=== PATIENT | female | born 1970 | race Caucasian/White ===

== ENCOUNTER → 2018-05-22 16:37 | Outpatient (CLI) | payer OTHER, SELFPAY ==
[2018-05-22 17:23] LABS: Hematocrit 43.5 % (37-47); Hemoglobin 14.9 g/dl (12.0-15.0); Mean Corp Hgb Conc 34.3 g/gl (32-36); Mean Corpuscular Volume 90.4 fL (81-99); Mean Platelet Vol. 9.5 fl (6.2-12.0); Platelet Count 321 K/mm3 (150-450); RBC Distribution Width CV 12.9 % (11.6-14.6); Red Blood Count 4.81 M/mm3 (4.2-5.4); White Blood Count 12.2 K/mm3 (4.4-11.0)
[2018-05-22 17:24] LABS: Scan Indicated on CBC? Y/N NO
[2018-05-22 18:05] LABS: Vitamin B12 469 pg/mL (211-911); Vitamin D,25 Hydroxy 12.7 ng/mL (29.95-100.01)
[2018-05-22 18:09] LABS: Hemoglobin A1c 5.6 % (4.2-6.3)
[2018-05-22 18:17] LABS: Homocysteine 9.2 umol/L (3.2-10.7)
[2018-05-22 19:27] LABS: ALB/GLOB Ratio 0.9 RATIO (0.9-2.4); AST(SGOT) 24 U/L (15-37); Alanine Aminotransfer ALT/SGPT 27 U/L (13-56); Albumin, Serum 3.8 g/dL (3.2-5.0); Alkaline Phosphatase 126 U/L (45-117); Anion Gap 8 (5-15); BUN 15 mg/dL (7-18); BUN/Creat Ratio 13.3 RATIO (10-20); CRP < 2.90 mg/L (0.0-3.0); Calcium,Total 10.8 mg/dL (8.5-10.1); Chloride 106 mmol/L (98-107); Cholesterol 214 mg/dL (200); Creatinine, Serum 1.13 mg/dL (0.55-1.02); EST Glomerular Filtration Rate 55 mL/min (>60); Est Glom Filt Rate - Afr Amer 67 mL/min (>60); Estradiol 187.5 pg/mL; Follicle Stimulating Hormone 22.9 mIU/mL; Free T3 2.9 pg/mL (2.18-3.98); Globulin 4.1 g/dL (2.2-4.2); Glucose 90 mg/dL (74-106); High Density Lipoprotein 40 mg/dL; Iron 86 ug/dL (50-170); Luteinizing Hormone 37.8 mIU/mL; Magnesium 1.8 mg/dL (1.6-2.6); Potassium 3.9 mmol/L (3.5-5.1); Prolactin 18.2 ng/mL; Protein, Total 7.9 g/dL (6.4-8.2); Sodium Level 140 mmol/L (136-145); T4 Total, Thyroxin 10.8 ug/dL (4.8-13.9); Thyroid Stim Hormone (TSH) 1.26 uIU/mL (0.358-3.74); Triglycerides 334 mg/dL; Very Low Density Lipoprotein 67 mg/dL (5-40)
[2018-05-23 10:32] LABS: Progesterone Level 1.07 ng/mL (See Comment)
[2018-05-23 10:36] LABS: T4 Free Direct 1.01 ng/dL (0.76-1.46)
[2018-05-28 12:07] LABS: DHEA Sulfate 200.9 ug/dL (41.2-243.7); Testosterone, % Free 0.88 % (0.50-2.80); Testosterone, Free 0.35 ng/dL (0.10-0.85); Testosterone, Total 40 ng/dL (8-48)
[2018-05-28 14:22] LABS: Sex Hormone-binding Globulin 51.2 nmol/L (24.6-122.0)
--- OUTSIDE RECORDS SUMMARY | 2018-07-17 22:52 | XMS RPT_ITS ---
:1970 Author Organization [facility] Care Team Providers Name Role Phone DAMON HINOJOSA Attending Unavailable DAMON HINOJOSA Referring Unavailable DAMON HINOJOSA Primary Care Unavailable PROBLEMS PROBLEMS DATE TYPE CONDITION / CODE ATTENDING STATUS SOURCE 06/03/2018 Unknown M62.81 - Muscle DAMON HINOJOSA Active [place] weakness [facility] (generalized) / Hospital M62.81(ICD-10) Repository 06/03/2018 Unknown R53.82 - Chronic DAMON HINOJOSA Active [place] fatigue, Community unspecified / Hospital R53.82(ICD-10) Repository PROCEDURES PROCEDURES No Procedure Records FoundRESULTS RESULTS CBC-COMPLETE BLOOD CNT Collected: 05/22/2018 Status: F Source: [place] NO DIFF 4:46 PM [facility] REPOSITORY Order Comment: COMPUTER WONT LET ME ORDER PSA TYPE CODE TESTS RESULT OUT OF RANGE REFERENCE UNITS LAB L100.1000 4.4-11.0 K/mm3 High WBC 12.2 LAB L100.1200 4.2-5.4 M/mm3 Normal RBC 4.81 LAB L100.1300 12.0-15.0 g/dl Normal HGB 14.9 LAB L100.1400 37-47 % Normal HCT 43.5 LAB L100.1500 81-99 fL Normal MCV 90.4 LAB L100.1600 27.0-32.0 pg Normal MCH 31.0 LAB L100.1700 32-36 g/gl Normal MCHC 34.3 LAB L100.1810 11.6-14.6 % Normal RDW CV 12.9 LAB L100.1820 35.1-43.9 fl Normal RDW SD 42.0 LAB L100.1900 150-450 K/mm3 Normal PLT 321 LAB L100.2000 6.2-12.0 fl Normal MPV 9.5 Performed By: #### L100.0500 #### [facility] [address] [place], [address] VITAMIN B12 Collected: 05/22/2018 Status: F Source: [place] 4:46 PM [facility] REPOSITORY Order Comment: COMPUTER WONT LET ME ORDER PSA Comments: [id number] PREGNENOLONE SER FZ TYPE CODE TESTS RESULT OUT OF RANGE REFERENCE UNITS LAB L503.0105 211-911 pg/mL Normal Vitamin B12 469 Performed By: #### L503.0105, L506.1000, L509.6000, L509.4001 #### [facility] [address] [place], [address] VITAMIN D,25 HYDROXY Collected: 05/22/2018 Status: F Source: [place] 4:46 PM [facility] REPOSITORY Order Comment: COMPUTER WONT LET ME ORDER PSA Comments: [id number] PREGNENOLONE SER FZ TYPE CODE TESTS RESULT OUT OF REFERENCE UNITS RANGE LAB L506.1000 29.95-100.01 ng/mL Low Vitamin D 12.7 25-OH Result Comment: Vitamin D 25(OH) Status Range Deficiency <20 ng/mL (50nmol/L) Insuffciency 20 - 30 ng/mL (50 - 75 nmol/L) Sufficiency 30 - 100 ng/mL (75 - 250 nmol/L) Toxicity >100 ng/mL (>250 nmol/L) Performed By: #### L503.0105, L506.1000, L509.6000, L509.4001 #### [facility] [address] [place], [address] CORTISOL SERUM Collected: 05/22/2018 Status: F Source: [place] 4:46 PM [facility] REPOSITORY Order Comment: COMPUTER WONT LET ME ORDER PSA Comments: [id number] PREGNENOLONE SER FZ TYPE CODE TESTS RESULT OUT OF RANGE REFERENCE UNITS LAB L509.6000 3.09-22.40 ug/dL Normal CORTISOL 9.70 Result Comment: Adult (AM) 4.30 - 22.40 ug/dL Adult (PM) 3.09 - 16.66 ug/dL Performed By: #### L503.0105, L506.1000, L509.6000, L509.4001 #### [facility] [address] [place], [address] PROGESTERONE LEVEL Collected: 05/22/2018 Status: F Source: [place] 4:46 PM [facility] REPOSITORY Order Comment: COMPUTER WONT LET ME ORDER PSA Comments: [id number] PREGNENOLONE SER FZ TYPE CODE TESTS RESULT OUT OF REFERENCE UNITS RANGE LAB L509.4001 See Comment ng/mL Progesterone Normal 1.07 Result Comment: Progesterone Reference Table: UNITS Female: Follicular 0.15 - 1.40 ng/mL Luteal 3.34 - 25.56 ng/mL Mid-luteal 4.44 - 28.03 ng/mL Postmenopausal 0.0 - 0.73 ng/mL : 1st Trimester 11.22 - 90.00 ng/mL 2nd Trimester 25.55 - 89.40 ng/mL 3rd Trimester 48.40 -422.50 ng/mL Performed By: #### L503.0105, L506.1000, L509.6000, L509.4001 #### [facility] [address] [facility] [facility] [address] HEMOGLOBIN A1C Collected: 05/22/2018 Status: F Source: [place] 4:46 PM [facility] REPOSITORY Order Comment: COMPUTER Internet PawnT LET ME ORDER PSA TYPE CODE TESTS RESULT OUT OF RANGE REFERENCE UNITS LAB L501.9985 4.2-6.3 % Normal HGB A1C 5.6 Performed By: #### L501.9985 #### [facility] [address] [place], [address] HOMOCYSTEINE Collected: 05/22/2018 Status: F Source: [place] 4:46 PM [facility] REPOSITORY Order Comment: COMPUTER Internet PawnT LET ME ORDER PSA TYPE CODE TESTS RESULT OUT OF REFERENCE UNITS RANGE LAB L503.8001 3.2-10.7 umol/L HOMOCYSTEINE Normal 9.2 Performed By: #### L503.8001 #### [facility] [address] [place], [place], [address] COMPREHENSIVE METABOLIC Collected: 05/22/2018 Status: F Source: [place] GALLEGOS 4:46 PM [facility] REPOSITORY Order Comment: COMPUTER WONT LET ME ORDER PSA Has Patient had X-rays with Contrast this admission? N Comments: [id number] PREGNENOLONE SER FZ Is Patient Taking Vitamins or Folic Acid Supplements? N TYPE CODE TESTS RESULT OUT OF RANGE REFERENCE UNITS LAB L501.0100 74-106 mg/dL Normal GLU 90 Result Comment: Please note revised GLUCOSE reference range effective 2017. LAB L501.1000 7-18 mg/dL Normal BUN 15 LAB L501.1100 0.55-1.02 mg/dL High CREAT,SERUM 1.13 Result Comment: The validity of the calculated GFR AND GFRAA in patients over 70 years has not been determined. Clinical correlation is essential. LAB L501.1110 >60 mL/min Low EST GFR 55 Result Comment: Non- GFR Calc LAB L501.1115 >60 mL/min Normal EST GFR - AA 67 Result Comment: GFR Calc LAB L501.1300 10-20 RATIO Normal BUN/CRE 13.3 LAB L501.1500 6.4-8.2 g/dL T Normal PROT 7.9 LAB L501.1800 3.2-5.0 g/dL Normal ALB 3.8 LAB L501.1950 2.2-4.2 g/dL Normal GLOB 4.1 LAB L501.2000 0.9-2.4 RATIO Normal A/G 0.9 LAB L501.2200 8.5-10.1 mg/dL High CA 10.8 LAB L501.4100 15-37 U/L Normal AST 24 Result Comment: Slight Hemolysis, Result may be falsely increased. LAB L501.4305 45-117 U/L High ALK P 126 LAB L501.4405 13-56 U/L Normal ALT 27 LAB L501.4600 0.20-1.00 mg/dL Normal T BILI 0.30 LAB L501.5300 136-145 mmol/L Normal NA 140 LAB L501.5600 3.5-5.1 mmol/L Normal K 3.9 Result Comment: Slight Hemolysis, Result may be falsely increased. LAB L501.5900 98-107 mmol/L Normal CL 106 LAB L501.6100 21.0-32.0 mmol/L Normal CO2 26.0 LAB L501.6200 5-15 Normal 8 GAP Performed By: #### L500.4050, L500.4100, L501.5200, L501.6710, L501.83520, L501.9310, L501.9520, L503.6150, L506.0250, L3100.5125, L3100.5170, L3100.5420, L3300.1750, L506.0400 #### [facility] [address] [place], [address] LIPID PROFILE Collected: 05/22/2018 Status: F Source: [place] 4:46 PM [facility] REPOSITORY Order Comment: COMPUTER WONT LET ME ORDER PSA Has Patient had X-rays with Contrast this admission? N Comments: [id number] PREGNENOLONE SER FZ Is Patient Taking Vitamins or Folic Acid Supplements? N TYPE CODE TESTS RESULT OUT OF RANGE REFERENCE UNITS LAB L501.4900 200 mg/dL High CHOL 214 Result Comment: <200 mg/dL Desirable 200-240 mg/dL Borderline >240 mg/dL High Risk LAB L501.5000 mg/dL High TRIG 334 Result Comment: The drugs N-Acetylcysteine and Metamizole may falsely depress this assay. Serum Triglycerides Reference Interval Normal <150 mg/dL Borderline high 150 - 199 mg/dL High 200 - 499 mg/dL Very High > or = 500 mg/dL LAB L501.6400 mg/dL Normal HDL 40 Result Comment: The drugs N-Acetylcysteine and Metamizole may falsely depress this assay. Reference Range HDL <40 mg/dL Low HDL Cholesterol HDL >or= 60 mg/dL High HDL Cholesterol LAB L501.6500 0-130 mg/dL Normal LDL 107 LAB L501.6600 5-40 mg/dL High VLDL 67 Performed By: #### L500.4050, L500.4100, L501.5200, L501.6710, L501.96575, L501.9310, L501.9520, L503.6150, L506.0250, L3100.5125, L3100.5170, L3100.5420, L3300.1750, L506.0400 #### [facility] [address] [facility] [place], [place], [address] MAGNESIUM Collected: 05/22/2018 Status: F Source: [place] 4:46 PM [facility] REPOSITORY Order Comment: COMPUTER WONT LET ME ORDER PSA Has Patient had X-rays with Contrast this admission? N Comments: [id number] PREGNENOLONE SER FZ Is Patient Taking Vitamins or Folic Acid Supplements? N TYPE CODE TESTS RESULT OUT OF RANGE REFERENCE UNITS LAB L501.5200 1.6-2.6 mg/dL Normal MG 1.8 Result Comment: Slight Hemolysis, Result may be falsely increased. Performed By: #### L500.4050, L500.4100, L501.5200, L501.6710, L501.61924, L501.9310, L501.9520, L503.6150, L506.0250, L3100.5125, L3100.5170, L3100.5420, L3300.1750, L506.0400 #### [facility] [address] [facility] [place], [place], [address] CRP Collected: 05/22/2018 Status: F Source: [place] 4:46 [facility] REPOSITORY Order Comment: COMPUTER WONT LET ME ORDER PSA Has Patient had X-rays with Contrast this admission? N Comments: [id number] PREGNENOLONE SER FZ Is Patient Taking Vitamins or Folic Acid Supplements? N TYPE CODE TESTS RESULT OUT OF RANGE REFERENCE UNITS LAB L501.6710 0.0-3.0 mg/L Normal < 2.90 C-REACTIVE PROT Result Comment: C-Reactive Protein (CRP) provides useful information for the diagnosis, therapy and monitoring of inflammatory processes and associated diseases. For the evaluation of Relative Risk for Cardiovascular Disease, a High Sensitivity CRP (HSCRP) should be ordered. Performed By: #### L500.4050, L500.4100, L501.5200, L501.6710, L501.94115, L501.9310, L501.9520, L503.6150, L506.0250, L3100.5125, L3100.5170, L3100.5420, L3300.1750, L506.0400 #### [facility] [address] [place], [place], [id number] (088) FREE T3 Collected: 05/22/2018 Status: F Source: [place] 4:46 PM [facility] REPOSITORY Order Comment: COMPUTER WONT LET ME ORDER PSA Has Patient had X-rays with Contrast this admission? N Comments: [id number] PREGNENOLONE SER FZ Is Patient Taking Vitamins or Folic Acid Supplements? N TYPE CODE TESTS RESULT OUT OF RANGE REFERENCE UNITS LAB L501.64507 2.18-3.98 pg/mL Normal FREE T3 2.9 Performed By: #### L500.4050, L500.4100, L501.5200, L501.6710, L501.34217, L501.9310, L501.9520, L503.6150, L506.0250, L3100.5125, L3100.5170, L3100.5420, L3300.1750, L506.0400 #### [facility] [address] [place], [place], [id number] (503) T4 TOTAL, THYROXIN Collected: 05/22/2018 Status: F Source: [place] 4:46 PM [facility] REPOSITORY Order Comment: COMPUTER WONT LET ME ORDER PSA Has Patient had X-rays with Contrast this admission? N Comments: [id number] PREGNENOLONE SER FZ Is Patient Taking Vitamins or Folic Acid Supplements? N TYPE CODE TESTS RESULT OUT OF RANGE REFERENCE UNITS LAB L501.9310 4.8-13.9 ug/dL T4 Normal THYROXIN 10.8 Performed By: #### L500.4050, L500.4100, L501.5200, L501.6710, L501.15701, L501.9310, L501.9520, L503.6150, L506.0250, L3100.5125, L3100.5170, L3100.5420, L3300.1750, L506.0400 #### [facility] [address] [place], [place], [phone] (243) THYROID STIM HORMONE Collected: 05/22/2018 Status: F Source: [place] (TSH) 4:46 PM [facility] REPOSITORY Order Comment: COMPUTER WONT LET ME ORDER PSA Has Patient had X-rays with Contrast this admission? N Comments: [id number] PREGNENOLONE SER FZ Is Patient Taking Vitamins or Folic Acid Supplements? N TYPE CODE TESTS RESULT OUT OF RANGE REFERENCE UNITS LAB L501.9520 0.358-3.74 uIU/mL Normal TSH 1.26 Performed By: #### L500.4050, L500.4100, L501.5200, L501.6710, L501.29798, L501.9310, L501.9520, L503.6150, L506.0250, L3100.5125, L3100.5170, L3100.5420, L3300.1750, L506.0400 #### [facility] [address] [place], [address] IRON Collected: 05/22/2018 Status: F Source: [place] 4:46 PM [facility] REPOSITORY Order Comment: COMPUTER Internet Pawn[employer] LET ME ORDER PSA Has Patient had X-rays with Contrast this admission? N Comments: [id number] PREGNENOLONE SER FZ Is Patient Taking Vitamins or Folic Acid Supplements? N TYPE CODE TESTS RESULT OUT OF RANGE REFERENCE UNITS LAB L503.6150 50-170 ug/dL Normal IRON 86 Result Comment: Slight Hemolysis, Result may be falsely increased. Performed By: #### L500.4050, L500.4100, L501.5200, L501.6710, L501.05289, L501.9310, L501.9520, L503.6150, L506.0250, L3100.5125, L3100.5170, L3100.5420, L3300.1750, L506.0400 #### [facility] [address] [place], [address] FOLATES, (FOLIC ACID) Collected: 05/22/2018 Status: F Source: [place] 4:46 PM [facility] REPOSITORY Order Comment: COMPUTER Internet PawnT LET ME ORDER PSA Has Patient had X-rays with Contrast this admission? N Comments: [id number] PREGNENOLONE SER FZ Is Patient Taking Vitamins or Folic Acid Supplements? N TYPE CODE TESTS RESULT OUT OF RANGE REFERENCE UNITS LAB L506.0250 3.1-55.4 ng/mL Normal FOLATES 15.60 Result Comment: Slight Hemolysis, Result may be falsely increased. Performed By: #### L500.4050, L500.4100, L501.5200, L501.6710, L501.55966, L501.9310, L501.9520, L503.6150, L506.0250, L3100.5125, L3100.5170, L3100.5420, L3300.1750, L506.0400 #### [facility] [address] [place], [address] FOLLICLE STIMULATING Collected: 05/22/2018 Status: F Source: [place] HORMONE 4:46 PM [facility] REPOSITORY Order Comment: COMPUTER WONT LET ME ORDER PSA Has Patient had X-rays with Contrast this admission? N Comments: [id number] PREGNENOLONE SER FZ Is Patient Taking Vitamins or Folic Acid Supplements? N TYPE CODE TESTS RESULT OUT OF RANGE REFERENCE UNITS LAB L3100.5125 mIU/mL Normal FSH 22.9 Result Comment: NORMAL REFERENCE RANGES FEMALE FOLLICULAR 2.3 - 12.6 mIU/mL MID-CYCLE PEAK 5.2 - 17.5 mIU/mL LUTEAL 1.7 - 12.9 mIU/mL POST-MENOPAUSAL ON MHT 5.9 - 72.8 mIU/mL NOT ON MHT 12.7 - 132.2 mlU/mL MALE 0.7 - 10.8 mIU/mL NEW TEST METHOD AND REFERENCE RANGES NOVEMBER 12, 2011 Performed By: #### L500.4050, L500.4100, L501.5200, L501.6710, L501.41854, L501.9310, L501.9520, L503.6150, L506.0250, L3100.5125, L3100.5170, L3100.5420, L3300.1750, L506.0400 #### [facility] [address] [place], [place], [id number] LUTEINIZING HORMONE Collected: 05/22/2018 Status: F Source: [place] 4:46 PM [facility] REPOSITORY Order Comment: COMPUTER WONT LET ME ORDER PSA Has Patient had X-rays with Contrast this admission? N Comments: [id number] PREGNENOLONE SER FZ Is Patient Taking Vitamins or Folic Acid Supplements? N TYPE CODE TESTS RESULT OUT OF RANGE REFERENCE UNITS LAB L3100.5170 mIU/mL Normal LH 37.8 Result Comment: NORMAL REFERENCE RANGES FEMALE FOLLICULAR 1.9 - 26.2 mIU/mL MID-CYCLE PEAK 22.8 - 76.1 mIU/mL LUTEAL 0.6 - 16.6 mIU/mL POST-MENOPAUSAL ON MHT 1.1 - 52.4 mIU/mL NOT ON MHT 8.6 - 61.8 mIU/mL MALE 1.2 - 10.6 mIU/mL NEW TEST METHOD AND REFERENCE RANGES NOVEMBER 12, 2011 Performed By: #### L500.4050, L500.4100, L501.5200, L501.6710, L501.92781, L501.9310, L501.9520, L503.6150, L506.0250, L3100.5125, L3100.5170, L3100.5420, L3300.1750, L506.0400 #### [facility] [address] [place], [address] PROLACTIN Collected: 05/22/2018 Status: F Source: [place] 4:46 PM [facility] REPOSITORY Order Comment: COMPUTER WONT LET ME ORDER PSA Has Patient had X-rays with Contrast this admission? N Comments: [id number] PREGNENOLONE SER FZ Is Patient Taking Vitamins or Folic Acid Supplements? N TYPE CODE TESTS RESULT OUT OF RANGE REFERENCE UNITS LAB L3100.5420 ng/mL Normal PROLACTIN 18.2 Result Comment: NORMAL REFERENCE RANGES FEMALE NON- 2.2 - 30.3 ng/mL 8.1 - 347.6 ng/mL POST-MENOPAUSAL 0.7 - 31.5 ng/mL MALE 2.5 - 17.4 ng/mL NEW TEST METHOD AND REFERENCE RANGES NOVEMBER 12, 2011 Performed By: #### L500.4050, L500.4100, L501.5200, L501.6710, L501.29096, L501.9310, L501.9520, L503.6150, L506.0250, L3100.5125, L3100.5170, L3100.5420, L3300.1750, L506.0400 #### [facility] [address] [place], [place], [address] ESTRADIOL Collected: 05/22/2018 Status: F Source: [place] 4:46 PM [facility] REPOSITORY Order Comment: COMPUTER WONT LET ME ORDER PSA Has Patient had X-rays with Contrast this admission? N Comments: [id number] PREGNENOLONE SER FZ Is Patient Taking Vitamins or Folic Acid Supplements? N TYPE CODE TESTS RESULT OUT OF RANGE REFERENCE UNITS LAB L3300.1750 pg/mL Normal ESTRADIOL 187.5 Result Comment: NORMAL REFERENCE RANGES FEMALE FOLLICULAR 21.4 - 164.8 pg/mL MID-CYCLE PEAK 49.9 - 367.2 pg/mL LUTEAL 40.2 - 259.0 pg/mL POST-MENOPAUSAL ON MHT <11.0 - 462.1 pg/mL NOT ON MHT <11.0 - 58.3 pg/mL MALE <11.0 - 52.5 pg/mL NOTE: [facility] HAS CONFIRMED THE DRUG FULVETRANT (FASLODEX) MAY CAUSE FALSELY ELEVATED ESTRADIOL RESULTS WHEN USING THIS TEST METHOD. IF PATIENT IS TAKING FULVESTRANT AN ALTERNATIVE METHOD SHOULD BE USED TO DETERMINE ESTRADIOL CONCENTRATION. Performed By: #### L500.4050, L500.4100, L501.5200, L501.6710, L501.46047, L501.9310, L501.9520, L503.6150, L506.0250, L3100.5125, L3100.5170, L3100.5420, L3300.1750, L506.0400 #### [facility] [address] [place], [place], [id number] T4 FREE DIRECT Collected: 05/22/2018 Status: F Source: [place] 4:46 PM [facility] REPOSITORY Order Comment: COMPUTER WONT LET ME ORDER PSA Has Patient had X-rays with Contrast this admission? N Comments: [id number] PREGNENOLONE SER FZ Is Patient Taking Vitamins or Folic Acid Supplements? N TYPE CODE TESTS RESULT OUT OF RANGE REFERENCE UNITS LAB L506.0400 0.76-1.46 ng/dL Normal T4 FREE 1.01 DIRECT Performed By: #### L500.4050, L500.4100, L501.5200, L501.6710, L501.75325, L501.9310, L501.9520, L503.6150, L506.0250, L3100.5125, L3100.5170, L3100.5420, L3300.1750, L506.0400 #### [facility] [address] [place], [address] SEX HORMONE-BINDING Collected: 05/22/2018 Status: F Source: [place] GLOBULIN 4:46 PM [facility] REPOSITORY Order Comment: COMPUTER WONT LET ME ORDER PSA Has Patient had X-rays with Contrast this admission? N Comments: [id number] PREGNENOLONE SER FZ Has Patient had Radioactive Injection for X-ray?: N TYPE CODE TESTS RESULT OUT OF RANGE REFERENCE UNITS LAB L3100.5060 24.6-122.0 nmol/L Normal SHBG 51.2 Result Comment: Performed at: - [facility] [address] [id number] Textile Slitting Machine Operator: Fish Mckeon PhD, Phone: [phone] Performed at: - [facility] [address] [id number] [employer]itting Machine Operator: Loly Gonzales MD, Phone: [phone] Performed By: #### L3100.5060, L3100.5310, L3300.1500 #### [facility] (refer to report for specific site) refer to report for address and phone number TESTOSTERONE, TOTAL / Collected: 05/22/2018 Status: F Source: [place] FREE 4:46 PM [facility] REPOSITORY Order Comment: COMPUTER WONT LET ME ORDER PSA Has Patient had X-rays with Contrast this admission? N Comments: [id number] PREGNENOLONE SER FZ Has Patient had Radioactive Injection for X-ray?: N TYPE CODE TESTS RESULT OUT OF RANGE REFERENCE UNITS LAB L3100.5320 8-48 ng/dL Normal TESTOSTER,TOTAL 40 LAB L3100.5340 0.10-0.85 ng/dL Normal TESTOSTER,FREE 0.35 LAB L3100.5360 0.50-2.80 % Normal TESTOSTER %FREE 0.88 Performed By: #### L3100.5060, L3100.5310, L3300.1500 #### [facility] (refer to report for specific site) refer to report for address and phone number DHEA SULFATE Collected: 05/22/2018 Status: F Source: [place] 4:46 PM [facility] REPOSITORY Order Comment: COMPUTER WONT LET ME ORDER PSA Has Patient had X-rays with Contrast this admission? N Comments: [id number] PREGNENOLONE SER FZ Has Patient had Radioactive Injection for X-ray?: N TYPE CODE TESTS RESULT OUT OF RANGE REFERENCE UNITS LAB L3300.1500 41.2-243.7 ug/dL Normal DHEA SULF 200.9 4020 Performed By: #### L3100.5060, L3100.5310, L3300.1500 #### [facility] (refer to report for specific site) refer to report for address and phone number MISCELLANEOUS LAB Collected: 05/22/2018 Status: F Source: [place] PROCEDURE 4:46 PM [facility] REPOSITORY Order Comment: COMPUTER WONT LET ME ORDER PSA Comments: [id number] PREGNENOLONE SER FZ Test(s) Ordered: [id number] PREGNENOLONE SER FZ TYPE CODE TESTS RESULT OUT OF RANGE REFERENCE UNITS LAB L801.1541 Normal [facility] [place] Result Comment: TEST RESULT LIMITS Pregnenolone, MS 24 ng/dL Reference Range: Adults: <151 TESTING PERFORMED AT [facility]. ORIGINAL REPORT ON FILE IN LAB CONTAINS ADDITIONAL TEST SITE INFORMATION. Performed By: #### L801.1541 #### [place] [facility] [place] [address] ALLERGIES ALLERGIES No Allergies Records FoundENCOUNTERS ENCOUNTERS ADMIT/DISCHARGE ACCOUNT ADMITTING ENCOUNTER LOCATION SOURCE NUMBER CLASS 05/22/2018 [id number] Ambulatory [place] [facility] ing:LAB Repository PAYERS PAYERS ENCOUNTER GUARANTOR PAYER SUBSCRIBER SOURCE 05/22/2018 HAKEEM SHANNON700 Primary HAKEEM RICHARDS [facility] [id number] [id number]: [phone]) GROUPPolicy Number: Repository [phone] () [id number] Date: [address] [address]VQ: 05/22/2018 Secondary NOT GIVENUNK [place] Insurance:SELF PAY [facility] Number: Effective Repository Date:2018-05-22
== END ==
DX: M62.81 Muscle weakness (generalized) (principal); R53.82 Chronic fatigue, unspecified
CPT/HCPCS: 36415; 80053; 80061; 82306; 82533; 82607; 82627; 82670; 82746; 83001; 83002; 83036; 83090; 83540; 83735; 84144; 84146; 84270; 84402; 84403; 84436; 84439; 84443; 84481; 85027; 86140; 82626

== ENCOUNTER 2020-08-01 21:49 | Observation (INO) | payer OTHER, SELFPAY ==
[2020-08-01 21:51] VITALS: BP 143/84; PULSE 69; RESP 16; TEMP 36.8; O2SAT 96; BMI 29.8
--- NOTE | 2020-08-01 22:49 | EKG12_ITS ---
Test Reason : CP Blood Pressure : / mmHG Vent. Rate : 060 BPM Atrial Rate : 060 BPM P-R Int : 114 ms QRS Dur : 094 ms QT Int : 414 ms P-R-T Axes : 056 -06 022 degrees QTc Int : 414 ms Normal sinus rhythm with sinus arrhythmia Incomplete right bundle branch block Borderline ECG Confirmed by STEFFANY JONES, MERCEDES ([id number]), editorial director ELIS MANCINI ([id number]) on 08/04/2020 9:30:32 AM Referred By: KAYA Confirmed By:MERCEDES JETER MD
--- NOTE | 2020-08-01 22:49 | ED.DCSUM_ITS ---
History of Present Illness Chief Complaint: Chest Pain Narrative: This patient is a 49-year-old female who presents with chest pain. This is been occurring intermittently over the last week. She notes it lasts anywhere from 10 to 30 minutes. It is exertional and relieved with rest. She describes it as a substernal pain. It is sharp in nature. She also complains of some mild associated shortness of breath and states that she feels hot but does not actually have sweats or diaphoresis. No nausea. No dizziness. She denies any recent illness such as fever cough vomiting diarrhea. She does not have any known history of coronary artery disease. Mother has a history of congestive heart failure. Patient is not a smoker. She takes no daily medications denies history of diabetes hypertension or hyperlipidemia. Past Medical History - Allergies and Home Meds Allergies/Adverse Reactions: Allergies No Known Allergies Allergy (Verified 08/01/20 21:51) Primary Care Physician: [facility] Doctor,Out of [NON-STAFF] - Past Medical History: None Smoking Status: Never smoker Review of Systems All systems negative except as indicated General: Denies: Fever Eyes: Denies: Visual changes - bilaterally ENT: Denies: Bilateral ear pain Cardiovascular: Reports: Chest pain Respiratory: Reports: Dyspnea. Denies: Cough Gastrointestinal: Denies: Nausea, Vomiting, Diarrhea Musculoskeletal: Denies: Myalgias Skin: Denies: Rash Neurological: Denies: Headache Hematologic: Denies: Easy bruising Allergy: Denies: Uticaria Physical Exam Vital Signs/Narrative: Vital Signs Temp Pulse Resp BP Pulse Ox 08/01/20 21:51 98.2 F 69 16 143/84 H 96 Inital Vital Signs reviewed: Yes General: Well nourished, Well developed Head: Normocephalic Eyes: EOMI ENT: Moist mucous membranes Neck: Supple Cardiovascular: Regular rate, Regular rhythm Respiratory: No distress, CTA bilaterally Abdomen: Soft, Nontender Extremities: Nontender, No edema Skin: Normal color Neurological: Alert Psychological: Normal affect Diagnostic/Tx/Re-eval Impressions Chest X-Ray 08/01/20 22:58 IMPRESSION: Normal x-ray examination of the chest. Electronically Signed: Antonino Cade DO at 23:34 EST Tel [phone], Service support , 08/01/20 22:58 Chest 1 View (Portable) [RAD] Stat Laboratory Results 08/01/20 08/01/20 22:15 22:15 WBC 9.0 RBC 4.76 Hgb 14.7 Hct 42.1 MCV 88.4 MCH 30.9 MCHC 34.9 RDW Std Deviation 39.3 RDW Coeff of Jamilah 12.2 Plt Count 343 MPV 9.8 Immature Gran % (Auto) 0.300 Neut % (Auto) 51.0 Lymph % (Auto) 38.9 [place] % (Auto) 6.9 Eos % (Auto) 2.3 Baso % (Auto) 0.6 Absolute Neuts (auto) 4.6 Absolute Lymphs (auto) 3.52 Nucleated RBC % 0 Sodium 141 Potassium 3.6 Chloride 111 H Carbon Dioxide 24.0 Anion Gap 6 BUN 17 Creatinine 1.06 H Estim Creat Clear Calc 51.89 Est GFR (MDRD) Af Amer 71 Est GFR (MDRD) Non-Af 59 L BUN/Creatinine Ratio 16.0 Glucose 101 Calcium 10.6 H Troponin I < 0.015 - Medical Decision Making EKG shows normal sinus rhythm with an incomplete right bundle branch block at a rate of 60. Single view portable chest x-ray was obtained. On my interpretation it shows no acute process. X-ray read by radiology agrees. Labs are unremarkable with a negative troponin. Although the patient does not have known risk factors such as diabetes hypertension hyperlipidemia I am concerned based on the description of her symptoms the duration and the exertional component. I do feel she is appropriate for serial enzymes and observation. Patient will be discussed the hospitalist and admitted. ED Disposition - Plan for ED Patient: Disposition: Acute Care Hospital [facility] Diagnosis: Chest pain Referrals: [facility] Doctor,Out of [NON-STAFF] -
[2020-08-01 22:51] VITALS: O2SAT 95
--- NOTE | 2020-08-01 22:51 | ED.RN ---
NO OLD EKG.
[2020-08-01 22:58] LABS: Absolute Lymphocyte Count 3.52 X10^3/uL (0.83-4.51); Absolute Neutrophil Count 4.6 X10^3/uL (2.0-7.7); Basophil# 0.05 X10^3/uL; Basophil% 0.6 % (0-1); Eosinophil# 0.21 X10^3/uL; Eosinophils% 2.3 % (0-5); Hematocrit 42.1 % (37-47); Hemoglobin 14.7 g/dL (12.0-15.0); Lymphocyte # 3.52 X10^3/ul (4.0); Lymphocyte % 38.9 % (19-41); Mean Corp Hgb Conc 34.9 g/dL (32-36); Mean Corpuscular Hgb 30.9 pg (27.0-32.0); Mean Corpuscular Volume 88.4 fL (81-99); Mean Platelet Vol. 9.8 fl (6.2-12.0); Monocyte# 0.62 X10^3/uL; Monocyte% 6.9 % (0-10); NRBC Flagged by Analyzer 0 % (0-5); Neutrophil # 4.61 X10^3/uL (2.7-7.7); Platelet Count 343 K/mm3 (150-450); RBC Distribution Width CV 12.2 % (11.6-14.6); RBC Distribution Width SD 39.3 fl (35.1-43.9); Red Blood Count 4.76 M/mm3 (4.2-5.4)
--- NOTE | 2020-08-01 22:58 | RAD_ITS ---
STUDY: X-RAY CHEST REASON FOR EXAM: Female, 49 years old. Chest pain for one week. TECHNIQUE: Single AP portable view of the chest. COMPARISON: None. FINDINGS: The lungs are clear and expanded. There is no demonstrated pleural abnormality. Normal size heart. Normal mediastinum and kaylie. Normal visualized pulmonary arteries. Normal visualized aortic arch and descending thoracic aorta. Normal visualized thoracic spine. Normal visualized ribs, clavicles, and shoulders. There is no demonstrated abnormality of the visualized soft tissue structures of the upper abdomen. RAD/Chest 1 View (Portable) IMPRESSION: Normal x-ray examination of the chest. Electronically Signed: Antonino Cade DO at 23:34 EST Tel [phone], Service support ,
[2020-08-01] MEDS: Aspirin 81 MG TAB.CHEW 324 MG PO (23:00)
[2020-08-01 23:11] LABS: Anion Gap 6 (5-15); BUN 17 mg/dL (7-18); Calcium,Total 10.6 mg/dL (8.5-10.1); Chloride 111 mmol/L (98-107); Creatinine, Serum 1.06 mg/dL (0.55-1.02); EST Glomerular Filtration Rate 59 mL/min (>60); Est Glom Filt Rate - Afr Amer 71 mL/min (>60); Estimated Creatinine Clearance 51.89 ml/min; Glucose 101 mg/dL (74-106); Potassium 3.6 mmol/L (3.5-5.1); Sodium Level 141 mmol/L (136-145)
[2020-08-01 23:55] VITALS: BP 140/93; PULSE 63; RESP 17; O2SAT 96
[2020-08-02] VITALS (12 sets, daily range): BP systolic 107–143; BP diastolic 64–91; PULSE 55–83; RESP 16–17; TEMP 36.1–36.8; O2SAT 94–100; BMI 30.1
--- NOTE | 2020-08-02 00:11 | HP.PCM_ITS ---
History of Present Illness Date of Admission: 08/02/20 Chief Complaint: chest pain The patient is a 49 year old F with no significant PMH who was admitted via the ED on 08/02/2020 with a complaint of exertional chest pain and shortness of breath. Chest pain was substernal, sharp, occurs several times a day, aggravated by exertion and relieved by rest, and says she hasnt had such chest pain previously. Review of systems otherwise negative. She does have a strong family history of heart disease in her grandparents, parents and EKG showed sinus arrhythmia, with no acute ST changes. Initial troponin was negative. She has been admitted to be managed for chest pain rule out ACS. [] Past Medical History Allergies No Known Allergies Allergy (Verified 08/01/20 21:51) Home Medications: Ambulatory Orders Medication Instructions Recorded NK 08/01/20 Surgical History: dilatation and curettage Lives: With Family Smoking Status: Never smoker Tobacco Use: Non-smoker Alcohol: None Drugs: None - *Family History Maternal History Items: No pertinent history Review of Systems Constitutional: Denies: Chills, Fever, Weight Change HEENT: Denies: Head Aches, Sinus Congestion, Sinus Drainage Cardiovascular: Reports: Chest Pain, Chest Pressure. Denies: Heaviness, Light Headedness, Palpitations Respiratory: Denies: Cough, Shortness of breath at rest, Sputum production Gastrointestinal: Denies: Abdominal Pain, Nausea, Vomiting Genitourinary: Denies: Dysuria Musculoskeletal: Denies: Joint Pain, Joint Tenderness Skin: Denies: Rash, Wounds Neurological: Denies: Numbness, Tingling, Focal weakness Psychiatric: Denies: Anxiety, Depression, Homicidal Ideations, Suicidal Ideations Hematologic/ Lymphatic: Denies: Easy Bruising, Easy Bleeding VTE Information - Inpt Only VTE Present on Admission: No VTE Pharm Prophylaxis ordered?: Yes Patient Problems: Active and Suspected Problems Chest pain (Acute) - Physical Exam Vitals/I&O's: Vital Signs Temp Pulse Resp BP Pulse Ox 98.2 F 63 17 140/93 H 96 08/01/20 21:51 08/01/20 23:55 08/01/20 23:55 08/01/20 23:55 08/01/20 23:55 Oxygen Delivery Method Room Air Weight: 163 lb 2.273 oz Body Mass Index (BMI) 29.8 General: Alert, Oriented x3, Cooperative HEENT: Atraumatic, PERRLA, EOMI, Normocephalic Neck: Supple, No JVD, Negative Carotid Bruits Lungs: Clear to auscultation, Normal air movement Cardiovascular: Regular rate, No murmurs Abdomen: Bowel Sounds Present, Soft, Non Tender Extremities: No edema, Capillary Refill Less than 3 Seconds Skin: No rashes, No breakdown Musculoskeletal: No Tenderness to Palpation of Joints or Extremities Neurological: Cranial nerves II-XII grossly intact Psych/Mental Status: Normal Affect, Appropriate, Alert and oriented to time, place, person, mood and affect Laboratory Results 08/01/20 22:15: WBC 9.0, RBC 4.76, Hgb 14.7, Hct 42.1, MCV 88.4, MCH 30.9, MCHC 34.9, RDW Std Deviation 39.3, RDW Coeff of Jamilah 12.2, Plt Count 343, MPV 9.8, Immature Gran % (Auto) 0.300, Neut % (Auto) 51.0, Lymph % (Auto) 38.9, [place] % (Auto) 6.9, Eos % (Auto) 2.3, Baso % (Auto) 0.6, Absolute Neuts (auto) 4.6, Absolute Lymphs (auto) 3.52, Nucleated RBC % 0 08/01/20 22:15: Sodium 141, Potassium 3.6, Chloride 111 H, Carbon Dioxide 24.0, Anion Gap 6, BUN 17, Creatinine 1.06 H, Estim Creat Clear Calc 51.89, Est GFR (MDRD) Af Amer 71, Est GFR (MDRD) Non-Af 59 L, BUN/Creatinine Ratio 16.0, Glucose 101, Calcium 10.6 H, Troponin I < 0.015 Diagnostic Data Chest X-Ray 08/01/20 22:58 IMPRESSION: Normal x-ray examination of the chest. Electronically Signed: Antonino Cade DO at 23:34 EST Tel [phone], Service support , Assessment/Plan All Active Problems Chest pain (Acute) 49-year-old admitted with a complaint of chest pain. #Chest pain to r/o ACS * admit to PCU with telemetry * cycle troponins * EKG showed no acute ST changes * SL nitroglycerin prn; PO aspirin 81mg daily * for stress test if troponins are negative * #Elevated BP * BP is in the 140s systolic. She doesnt have a previous history of hypertension * IV hydralazine prn; start oral BP meds if BP remains elevated. * DVT prophylaxis: lovenox
--- NOTE | 2020-08-02 01:01 | EKG12_ITS ---
Test Reason : REPEAT Blood Pressure : / mmHG Vent. Rate : 065 BPM Atrial Rate : 065 BPM P-R Int : 108 ms QRS Dur : 094 ms QT Int : 414 ms P-R-T Axes : 062 008 027 degrees QTc Int : 430 ms Sinus rhythm with short MS Incomplete right bundle branch block Borderline ECG Confirmed by STEFFANY JONES, MERCEDES ([id number]), assignment desk editor ELIS MANCINI ([id number]) on 08/04/2020 9:30:49 AM Referred By: HERSON Confirmed By:MERCEDES JETER MD
--- NOTE | 2020-08-02 01:16 | EKG12_ITS ---
Test Reason : CP ADMIT Blood Pressure : / mmHG Vent. Rate : 060 BPM Atrial Rate : 060 BPM P-R Int : 134 ms QRS Dur : 092 ms QT Int : 418 ms P-R-T Axes : 036 -01 017 degrees QTc Int : 418 ms Normal sinus rhythm Normal ECG When compared with ECG of 01-AUG-2020 23:59, MANUAL COMPARISON REQUIRED, DATA IS UNCONFIRMED Confirmed by BRENDEN JONES, NOLBERTO ([id number]), clinical editor ELIS MANCINI ([id number]) on 08/05/2020 8:49:47 AM Referred By: DR SINGH Confirmed By:JASBIR WILCOX MD
[2020-08-02 05:18] LABS: Absolute Lymphocyte Count 3.44 X10^3/uL (0.83-4.51); Basophil# 0.06 X10^3/uL; Basophil% 0.6 % (0-1); Eosinophil# 0.22 X10^3/uL; Eosinophils% 2.4 % (0-5); Hematocrit 42.8 % (37-47); Hemoglobin 14.5 g/dL (12.0-15.0); Lymphocyte # 3.44 X10^3/ul (4.0); Mean Corp Hgb Conc 33.9 g/dL (32-36); Mean Corpuscular Hgb 30.5 pg (27.0-32.0); Mean Corpuscular Volume 90.1 fL (81-99); Mean Platelet Vol. 9.5 fl (6.2-12.0); Monocyte# 0.58 X10^3/uL; Monocyte% 6.2 % (0-10); NRBC Flagged by Analyzer 0 % (0-5); Neutrophil # 4.98 X10^3/uL (2.7-7.7); Neutrophil % 53.6 % (47-70); Platelet Count 301 K/mm3 (150-450); RBC Distribution Width CV 12.3 % (11.6-14.6); RBC Distribution Width SD 40.6 fl (35.1-43.9); Red Blood Count 4.75 M/mm3 (4.2-5.4); White Blood Count 9.3 K/mm3 (4.4-11.0)
[2020-08-02 05:41] LABS: Anion Gap 3 (5-15); BUN 17 mg/dL (7-18); BUN/Creat Ratio 15.5 RATIO (10-20); Calcium,Total 10.3 mg/dL (8.5-10.1); Chloride 109 mmol/L (98-107); EST Glomerular Filtration Rate 56 mL/min (>60); Est Glom Filt Rate - Afr Amer 68 mL/min (>60); Estimated Creatinine Clearance 50.01 ml/min; Glucose 101 mg/dL (74-106); Potassium 3.9 mmol/L (3.5-5.1); Sodium Level 140 mmol/L (136-145)
--- NOTE | 2020-08-02 05:55 | ECHOCS_ITS ---
Reason For Study: HYPERTENSION Procedure This was a 2D Doppler, Color Flow transthoracic echocardiogram. The study was technically difficult. Contrast injection was performed. Exam performed portable in patient room. Left Ventricle Normal LV size. Left ventricular systolic function is normal. The estimated ejection fraction is 60 %. No evidence for diastolic dysfunction. No regional wall motion abnormalities noted. Right Ventricle Normal RV size. Normal systolic function. Atria Normal left atrium. Normal right atrium. No doppler evidence for ASD. Mitral Valve There is no mitral annular calcification. Mild diffuse mitral valve thickening. Trivial mitral valve insufficiency. Tricuspid Valve Normal tricuspid valve. Trivial tricuspid valve insufficiency. Right ventricular systolic pressure estimated to be 26 mmHg. Aortic Valve Trisinus/trileaflet aortic valve. Normal aortic valve. Pulmonic Valve The pulmonic valve is not well visualized. Trivial pulmonic valve insufficiency. Great Vessels Normal sized aortic root. Pericardium/Pleural No pericardial effusion. Medication Diluted definity 2ml given slow IV push to enhance endocardial definition. MMode/2D Measurements & Calculations LVIDd: 4.5 cm IVSd: 0.75 cm Ao root diam: 3.1 cm LVIDs: 3.1 cm LVPWd: 0.76 cm RVDd: 3.3 cm FS: 31.0 % LAV(MOD-bp): 39.9 ml LVAd ap4: 27.7 cm2 SV(MOD-sp4): 51.0 ml LAV(MOD-bp) Indexed: 22.7 ml/m2 EDV(MOD-sp4): 83.4 ml LAV(MOD-sp2): 44.0 ml EDV(sp4-el): 87.9 ml LAV(MOD-sp4): 30.4 ml LVAs ap4: 15.3 cm2 ESV(MOD-sp4): 32.4 ml ESV(sp4-el): 33.6 ml EF(MOD-sp4): 61.1 % EF(sp4-el): 61.8 % SV(sp4-el): 54.3 ml LA A4 area: 13.9 cm2 LA dimension(2D): 3.4 cm RA A4 area: 11.9 cm2 Time Measurements MV dec time: 0.29 sec Doppler Measurements & Calculations MV E max hunter: 73.3 cm/sec Lat Peak E' Hunter: 14.3 cm/sec Med Peak E' Hunter: 13.4 cm/sec MV A max hunter: 55.2 cm/sec E/E' lat: 5.1 E/E' med: 5.5 MV E/A: 1.3 Ao V2 max: 136.3 cm/sec LV V1 max: 115.8 cm/sec PA V2 max: 99.8 cm/sec Ao max P.4 mmHg LV V1 max P.4 mmHg PI end-d hunter: 68.5 cm/sec TR max hunter: 241.1 cm/sec TR max P.3 mmHg Interpretation Summary The study was technically difficult. Contrast injection was performed. Left ventricular systolic function is normal. The estimated ejection fraction is 60 %. Mild diffuse mitral valve thickening. Trivial mitral valve insufficiency. Trivial tricuspid valve insufficiency. Trivial pulmonic valve insufficiency. Right ventricular systolic pressure estimated to be 26 mmHg. No evidence for diastolic dysfunction. Ordering Physician: Natalie Figueroa Referring Physician: LUC DAY Performed By: Anjelica Varner RDCS
[2020-08-02] MEDS: 0.9% Saline Lock 10 ML Syringe IV (07:53)
--- NOTE | 2020-08-02 10:55 | STRESSREP ---
Stress Test Report Date: 08-02-2020 Procedure: Exercise tolerance test/imaging study Indications: Chest pain; shortness of breath/dyspnea on exertion Consent: Per the patient Procedure: The patient exercised on a Alexander protocol for 8 minutes completing Stage 2 and 2 minutes of Stage III achieving a peak heart rate of 151 bpm (87% predicted maximal heart rate) with a peak blood pressure 144/84 mmHg and a peak MET capacity of 9 METs. The baseline ECG demonstrated sinus bradycardia. The peak exercise ECG demonstrated no obvious ECG changes. There were no cardiac dysrhythmias pretest, during exercise, or recovery. The functional capacity was considered good. There was no complaint of chest discomfort during exercise or recovery. The examination was discontinued secondary to dyspnea/fatigue. Impression: 1. Technically adequate (percent predicted maximal heart rate greater than 85%) exercise tolerance test 2. Peak exercise ECG with no obvious ECG changes 3. There were no cardiac dysrhythmias pretest, during exercise, or recovery 4. Nuclear images pending Myocardial perfusion imaging study: Technique: The patient was injected with 11.2 mCi of technetium 99m Cardiolite and subsequently rest SPECT Cardiolite nuclear imaging was obtained in the horizontal long, vertical long, and short axis views. The patient exercised on a Alexander protocol for 8 minutes completing Stage 2 and 2 minutes of Stage III achieving a peak heart rate of 151 bpm (87% predicted maximal heart rate) with a peak blood pressure 144/84 mmHg and a peak MET capacity of 9 METs. The patient was injected with 33.3 mCi of technetium 99m Cardiolite and subsequently stress SPECT Cardiolite nuclear imaging was obtained in the horizontal long, vertical long, and short axis views. A gated Cardiolite study at peak stress was obtained. Interpretation: Rest and stress SPECT Cardiolite nuclear imaging status post realignment, normalization, and attenuation correction, demonstrates relative uniform tracer uptake and myocardial perfusion appearing within normal limits. There is end systolic thickening and brightening. The gated Cardiolite study demonstrates myocardial thickening and inward wall motion. The reported LVEF is 82%. Impression: 1. Rest and stress SPECT Cardiolite nuclear imaging demonstrate relative uniform tracer uptake and myocardial perfusion appearing within normal limits. 2. The gated Cardiolite study reports an LVEF of 82%. This note was generated with [employer] software. It may contain incorrect words, spelling, and punctuation that were not noted in checking the note before signing.
[2020-08-02 13:22] LABS: T4 Free Direct 1.03 ng/dL (0.76-1.46); Thyroid Stim Hormone (TSH) 1.63 uIU/mL (0.358-3.74)
--- NOTE | 2020-08-02 13:35 | DCINST_ITS ---
- Discharge Diagnoses Current Active Problems: Current Active and Chronic Problems 1. Chest pain, suspected non-cardiac, suspected secondary to Acute chest wall costochondritis 2. Transiently elevated blood pressure, corrected with no history of hypertension 3. Obesity You will use the following diet at home:: Other - Encourage consideration for cardiac diet with low sugar intake and meal portioning to assist with weight loss. Your food should be the consistency of: Regular Your liquids should be the consistency of: Regular/Thin Discharge Activity: - - Encourage routine activity and may discuss aerobic activity planning with your primary care physician. May resume sexual activity in: No Restrictions Weight Bearing Status: Weight bearing as tolerated Call your doctor if you observe: Fever of 101 or Higher, Inability to urinate, Inability to have a bowel movement, Shortness of breath, Dizziness, Fainting spells, Chest pain - Not improving, changing or worsening., Uncontrolled pain Instructions: ED Chest Pain, Noncardiac, ED Chest Wall Pain, Costochondritis Allergies/Adverse Reactions: Allergies No Known Allergies Allergy (Verified 08/01/20 21:51) Medications to take at Discharge Pantoprazole Sodium [Protonix] 20 mg PO DAILY #30 tab 08/02/20 Prednisone 40 mg PO DAILY 5 Days #20 tab 08/02/20 The following prescriptions were given: Prednisone 40 mg PO DAILY 5 Days #20 tab Prescription Printed Pantoprazole Sodium [Protonix] 20 mg PO DAILY #30 tab Prescription Printed Primary Care Physician: Molina Montalvo,Out of [NON-STAFF] - Please follow up with your Primary Care Physician in: Follow-up w/ your primary care physician within 3-5 days to review admit. Test Results: Test results from this visit will be discussed in further detail at your follow- up appointment, if applicable. Proposed Discharge Date: 08/02/20
--- NOTE | 2020-08-02 13:46 | DS.PCM_ITS ---
Discharge Date and Diagnosis - Problem List Patient Problems: Active and Suspected Problems Chest pain (Acute) Date of Admission: 08/02/20 Date of Discharge: 08/02/20 - Primary Discharge Diagnosis Acute Problems: Active Problems 1. Chest pain, suspected non-cardiac, suspected secondary to Acute chest wall costochondritis 2. Transiently elevated blood pressure, corrected with no history of hypertension 3. Obesity - Secondary Discharge Diagnosis Chronic Problems: 1. Obesity Hospital Course and Treatment Imaging Results: 08/02/20 05:55 Echo Complete W/ Contrast [ECHO] Routine Nuclear Stress Test - Treadmil [NM] AM (NON MEDS) Operations: None Procedures: 2-D Echocardiogram, EKG, Stress test Summary of Care Provided: The patient is a 49 y/o F w/ PMHx: Obesity who presented to the [facility] ED on 08/02/20 with complaint of the onset of chest pain, noted to be stabbing primarily, midsternal with no radiation intermittently with activity and very occasionally at rest lasting variable amounts of time over the last week. Patient does also report that she is having significant hormonal issues and planned outpatient evaluation for this, associated with menopausal onset. In the ED work-up included EKG sinus rhythm without evidence of acute ischemia, CXR without acute process, unremarkable CBC and chemistry, cardiac enzyme set x 1 normal. The patient was admitted to PCU, maintained on cardiac telemetry, serial cardiac enzymes were obtained as well as serial EKGs which remained unremarkable. Patient underwent AM 08/02/2020 stress testing which was noted to be negative for inducible ischemia. Magnesium level was normal. TSH and free T4 were normal. Upon evaluation patient's chest discomfort was significantly reproduced by palpation of the anterior chest with suspicion that her chest discomfort was primarily secondary to costochondritis especially given worsened discomfort with certain movements. Upon discharge patient was initiated on short 5-day burst of prednisone therapy. ECHO requested and performed prior to discharge. Patient was also started on Protonix in case reflux was a component. Patient was discharged to home in stable condition with recommendation for follow-up with primary care physician within 3-5 days to reassess and alter regimen as needed. Encouraged blood pressure reassessment at PCP as initially elevated during presentation but normalized to assure no need for pressure medication initiation. Alteration to the lifestyle and diet encouraged during admission as well. DAY OF DISCHARGE PROGRESS NOTE: Subjective: Patient without acute event overnight per self and nursing report. Patient still reporting some intermittent chest discomfort which is reproducible on examination, worse with certain activities. Patient denies fever, chills, nausea, emesis, abdominal pain or dyspnea. Patient does complain about in termittent diaphoresis and flushing with hormonal symptoms, postmenopausal and requested labs be performed while inpatient however this was deferred to her primary care physician given her acute presentation and need to rule out acute chest pain etiologies. Patient will be discharged with follow-up with primary care physician within 3-5 days. Objective: T 97, heart rate 61, BP 120/69, respiratory rate 16, 95% on room air. Physical Examination: General: awake, alert, oriented x 3 and cooperative, seated upright in the PCU bed, NAD. Skin: normal color, turgor, no icterus, cyanosis. HEENT: AT/NC, EOMI, PERRLA, MMM. Lungs: CTA bilaterally, moderate effort, mild decrease BL bases, no rales, ronchi or wheezing; Heart: Regular rate and rhythm; no gallop, rub audible, reproducible anterior ch est midsternal region discomfort with palpation. Abdomen: soft, obese, NTTP, ND, normal BS. Extremities: no cyanosis, clubbing, or edema. Neurological: patient awake, alert, oriented x 3; cognitive function appears intact upon questioning,; pupils equally reactive to light and accomodation; cranial nerves II-XII grossly normal, moving all 4 extremities, strength appropriate. Psychiatric: affect appears mildly anxious otherwise normal, no acute evidence of depressive feelings. Assessment and Plan: Please see hospital summary above. Patient Problems: Active and Suspected Problems Chest pain (Acute) - Physical Exam Vitals/I&O's: Vital Signs Temp Pulse Resp BP Pulse Ox 97.0 F L 61 16 120/69 95 08/02/20 11:15 08/02/20 11:15 08/02/20 11:15 08/02/20 11:15 08/02/20 11:15 Oxygen Delivery Method Room Air Weight: 164 lb 7.437 oz Body Mass Index (BMI) 30.0 Intake and Output for Last 24 Hours 07/31/20 08/01/20 08/02/20 23:59 23:59 23:59 Intake Total 360 / 360 Balance 360 / 360 Laboratory Results 08/01/20 22:15: WBC 9.0, RBC 4.76, Hgb 14.7, Hct 42.1, MCV 88.4, MCH 30.9, MCHC 34.9, RDW Std Deviation 39.3, RDW Coeff of Jamilah 12.2, Plt Count 343, MPV 9.8, Immature Gran % (Auto) 0.300, Neut % (Auto) 51.0, Lymph % (Auto) 38.9, [place] % (Auto) 6.9, Eos % (Auto) 2.3, Baso % (Auto) 0.6, Absolute Neuts (auto) 4.6, Absolute Lymphs (auto) 3.52, Nucleated RBC % 0 08/01/20 22:15: Sodium 141, Potassium 3.6, Chloride 111 H, Carbon Dioxide 24.0, Anion Gap 6, BUN 17, Creatinine 1.06 H, Estim Creat Clear Calc 51.89, Est GFR (MDRD) Af Amer 71, Est GFR (MDRD) Non-Af 59 L, BUN/Creatinine Ratio 16.0, Glucose 101, Calcium 10.6 H, Troponin I < 0.015 08/02/20 01:52: Troponin I < 0.015 08/02/20 04:45: Sodium 140, Potassium 3.9, Chloride 109 H, Carbon Dioxide 28.0, Anion Gap 3 L, BUN 17, Creatinine 1.10 H, Estim Creat Clear Calc 50.01, Est GFR (MDRD) Af Amer 68, Est GFR (MDRD) Non-Af 56 L, BUN/Creatinine Ratio 15.5, Glucose 101, Calcium 10.3 H, Troponin I < 0.015 08/02/20 04:45: WBC 9.3, RBC 4.75, Hgb 14.5, Hct 42.8, MCV 90.1, MCH 30.5, MCHC 33.9, RDW Std Deviation 40.6, RDW Coeff of Jamilah 12.3, Plt Count 301, MPV 9.5, Immature Gran % (Auto) 0.200, Neut % (Auto) 53.6, Lymph % (Auto) 37.0, [place] % (Auto) 6.2, Eos % (Auto) 2.4, Baso % (Auto) 0.6, Absolute Neuts (auto) 5.0, Absolute Lymphs (auto) 3.44, Nucleated RBC % 0 08/02/20 04:45: Magnesium 2.0 08/02/20 04:45: TSH 1.63, Free T4 1.03 Current Medications Enoxaparin Sodium (Enoxaparin 40 Mg/0.4 Ml Syringe) 40 mg SC DAILY ANT Last Admin: 08/02/20 09:25 Dose: Not Given Documented by: Sodium Chloride () 250 mls @ 15 mls/hr IV .[id number] PRN PRN Reason: Saline Flush Sodium Chloride () 250 mls @ 15 mls/hr IV .[id number] PRN PRN Reason: Additional IVPB Infusion Nitroglycerin (Nitroglycerin (Inpatient Use) 0.4 Mg Tab.Subl) 0.4 mg SUBLINGUAL Q5M PRN PRN Reason: CARDIAC/CHEST PAIN Ondansetron HCl (Ondansetron 4 Mg/2 Ml Vial) 4 mg IV Q8H PRN PRN PRN Reason: NAUSEA/VOMITING Sodium Chloride (0.9% Saline Lock 10 Ml Syringe) 10 - 40 ml IV UD PRN PRN Reason: SALINE FLUSH Last Admin: 08/02/20 07:53 Dose: 10 ml Documented by: Discharge Activity: - - Encourage routine activity and may discuss aerobic activity planning with your primary care physician. May resume sexual activity in: No Restrictions Weight Bearing Status: Weight bearing as tolerated Call your doctor if you observe: Fever of 101 or Higher, Inability to urinate, Inability to have a bowel movement, Shortness of breath, Dizziness, Fainting spells, Chest pain - Not improving, changing or worsening., Uncontrolled pain Home Medications: Medications to take at Discharge Pantoprazole Sodium [Protonix] 20 mg PO DAILY #30 tab 08/02/20 Prednisone 40 mg PO DAILY 5 Days #20 tab 08/02/20 Following Prescriptions Were Given to Patient: Prednisone 40 mg PO DAILY 5 Days #20 tab Prescription Printed Pantoprazole Sodium [Protonix] 20 mg PO DAILY #30 tab Prescription Printed Primary Care Physician: Molina Doctor,Out of [NON-STAFF] - Please follow up with your Primary Care Physician in: Follow-up w/ your primary care physician within 3-5 days to review admit. Patient Instructions: ED Chest Pain, Noncardiac, ED Chest Wall Pain, Costochondritis Disposition: Home Minutes spent on discharge:: 35 Patient Condition:: Fair Medical Necessity - Tobacco Use Smoking Status: Never smoker Tobacco Use: Non-smoker Meaningful Use Info Meaningful Use Diagnoses (Choose all that apply): None applicable OBSV E&M: 53765 Observation care discharge
== END 2020-08-02 13:17 | disposition home or self-care (01) ==
LOC: ED 23:53 → PCU 08-02 07:06
PROVIDERS: Admitting Provider Student in an Organized Health Care Education/Training Program; Emergency Provider Emergency Medicine; PCP Physician Assistant; Visit Provider Family Medicine
DX: R07.89 Other chest pain (principal); E66.9 Obesity, unspecified; R03.0 Elevated blood-pressure reading, without diagnosis of hypertension; R06.02 Shortness of breath; Z68.30 Body mass index [BMI] 30.0-30.9, adult
CPT/HCPCS: 71045; 78452; 80048; 83735; 84439; 84443; 84484; 85025; 93005; 93017; 93306; 99218; 99285; A9500; Q9957; A4216; C8929; G0378

== ENCOUNTER 2021-09-15 22:08 | Emergency (ER) | payer SELFPAY, OTHER ==
[2021-09-15 22:09] VITALS: BP 145/91; PULSE 65; RESP 16; TEMP 36.5; O2SAT 95; BMI 29.6
--- NOTE | 2021-09-15 22:29 | CT_ITS ---
STUDY: CT ABDOMEN AND PELVIS WITH CONTRAST REASON FOR EXAM: Female, 50 years old. Left lower quadrant pain. Postop D the September 07. History of prior cholecystectomy. RADIATION DOSAGE (If Supplied By Facility): CTDIvol = ( 16.73 ) mGy, DLP = ( 722.24 ) mGycm TECHNIQUE: Transaxial images were obtained from the dome of the diaphragm to the symphysis pubis without oral contrast. IV 100mL Isovue-300 was administered. Sagittal and coronal images were reconstructed. Individualized dose optimization techniques were used for this CT. COMPARISON: None. FINDINGS: The visualized lung bases are unremarkable. The visualized portions of the heart are within normal limits. Normal liver. There are surgical clips in the gallbladder fossa consistent with a prior cholecystectomy. Normal spleen. Normal pancreas. Normal bilateral adrenal glands. Normal right kidney. Normal right ureter. There are multiple nonobstructing left renal calculi. The largest, in the upper pole calyx, measuring 5 mm. There is a small cortical cyst in the lower pole cortex. No hydronephrosis. Normal left ureter. Normal visualized stomach. Normal small intestine. 1 diverticulosis without acute inflammatory change. The proximal colon is unremarkable. The appendix is visualized and appears normal. Normal abdominal aorta. Normal inferior vena cava. Normal retroperitoneum. Normal urinary bladder. There is a large fibroid in the right anterior fundal wall. Uterus is otherwise unremarkable. Normal ovaries. No pelvic lymphadenopathy. No free air or free fluid is seen within the Normal abdominal wall. Normal osseous structures. There is a rounded hypoechoic density in the right adductor musculature at the level of the adductor canal measuring 3.1 x 2.7 x 1.9 cm. Etiology is uncertain. This may be a fluid arising from the underside of the right hip joint. CT/Abdomen/Pelvis W IV Cont ONLY IMPRESSION: 1. Nonobstructing left renal calculi. 2. Fibroid uterus. 3. No other evidence of acute intra-abdominal or pelvic process. 4. Fluid extending into the adductor musculature from the inferior right hip joint. Electronically Signed: Antonino Cade DO at 23:20 EDT ,
[2021-09-15] MEDS: 0.9% Normal Saline 1,000 ML 999 ML IV (22:40)
--- NOTE | 2021-09-15 22:42 | EDS_ITS ---
HPI History of Present Illness Chief Complaint: Abd Pain Narrative Narrative: Patient is a 50-year-old female who underwent a D&C 1 week ago. She states that she was then placed on doxycycline which she has been on for 3 days because of the concern for infection however patient cannot tell me what type of infection they are treating. She states she is noted some increased pain over the past 2 to 3 days as well in her abdomen and today went and saw her STREET ENGINEER for follow-up from the D&C. She states that after the physician performing the exam that she noticed some increased pain and firmness in her mid to left-sided abdomen which has persisted throughout the day and therefore comes in for evaluation. PFSH PFSH Home Medications doxycycline hyclate 100 mg PO BID 09/15/21 [History Last Taken Unknown] Allergy/AdvReac Type Severity Reaction Status Date / Time No Known Allergies Allergy Verified 09/15/21 22:14 Surgical History (Updated 09/15/21 @ 22:31 by Zuleima Rice) Hx of cholecystectomy Hx of dilation and curettage Social History Smoking Status: Never smoker ROS ROS ED Constitutional Constitutional ED: Denies chills or fever(s) ENT ENT ED: Denies sore throat Cardiovascular Cardiovascular: Denies chest pain Respiratory/Chest Respiratory/Chest: Denies cough or dyspnea Gastrointestinal Gastrointestinal: Reports abdominal pain; Denies constipation, diarrhea, nausea or vomiting Genitourinary Genitourinary ED: Reports hematuria; Denies dysuria Musculoskeletal Musculoskeletal: Denies myalgias Integumentary Denies rash Neurologic Neurologic: Denies headache(s) Hematologic/Lymphatic Hematologic/Lymphatic: Denies easy bleeding or easy bruising EXAM Physical Exam Const Vital Signs: 09/15/21 22:09 Temperature 97.7 F L Temperature Source Temporal Pulse Rate 65 Respiratory Rate 16 Blood Pressure 145/91 H Blood Pressure Mean 109 Pulse Ox 95 Oxygen Delivery Method Room Air Positive well nourished and well developed General Appearance ED: well developed HEENT Reports moist mucous membranes Eyes PERRL and EOMs intact bilaterally Neck supple Resp normal respiratory effort and clear to auscultation bilaterally Cardio regular rate and regular rhythm Rate: other Other Details: Radial pulses are +2-4 bilaterally are equal and s ymmetric GI non-distended GI Narrative: Abdomen is soft and nondistended with hypoactive bowel sounds. There is pain with palpation just left of the umbilicus and towards the left lower quadrant with slight voluntary guarding at the site. No rigidity pulsatile mass fluid wave or peritoneal signs noted. Palpation: soft Back/Spine no CVA tenderness Extremity normal to inspection Neuro oriented x3 and CN's II-XII intact bilaterally Sensorium / Orientation: alert Motor Exam: strength 5/5 throughout Psych mental status grossly normal Skin no rashes or lesions noted MDM MDM MDM Narrative Medical decision making narrative: Patient arrived to the ER slightly hypertensive but otherwise afebrile and with a soft nonsurgical abdomen. However with her recent D&C there is concern that she could have developed a small perforation leading to a underlying abdominal infection. Therefore basic labs were obtained as well as a CT scan with IV contrast. Patient's white count is normal she has no left shift and no lactic acidosis. CT scan does not show any type of acute abdominal pathology either. On reevaluation her abdomen remains soft and nonsurgical. Therefore at this time with normal laboratory studies and a negative CT scan I do not feel there is need for admission or further work-up in the ER and patient can be discharged and follow-up with her family doctor and/or STREET [employer] as needed on an outpatient basis. Lab Data Attestation: I reviewed the patient's lab results. Labs: Laboratory Results - last 24 hr 09/15/21 09/15/21 09/15/21 22:35 22:40 22:40 WBC 10.3 RBC 4.74 Hgb 15.2 H Hct 42.6 MCV 89.9 MCH 32.1 H MCHC 35.7 RDW Std Deviation 41.7 RDW Coeff of Jamilah 12.7 Plt Count 339 MPV 9.6 Immature Gran % (Auto) 0.300 Neut % (Auto) 49.1 Lymph % (Auto) 40.4 [place] % (Auto) 7.4 Eos % (Auto) 2.2 Baso % (Auto) 0.6 Absolute Neuts (auto) 5.1 Absolute Lymphs (auto) 4.18 Nucleated RBC % 0 Sodium 139 Potassium 3.8 Chloride 108 H Carbon Dioxide 28.0 Anion Gap 3 L BUN 20 H Creatinine 1.11 H Estim Creat Clear Calc 49.02 Est GFR (MDRD) Af Amer 67 Est GFR (MDRD) Non-Af 56 L BUN/Creatinine Ratio 18.0 Glucose 105 Lactic Acid Calcium 10.7 H Total Bilirubin 0.50 Direct Bilirubin 0.09 AST 21 ALT 36 Alkaline Phosphatase 120 H Total Protein 7.5 Albumin 3.7 Globulin 3.8 Lipase 181 Urine Color Yellow Urine Clarity Sl. Cloudy Urine pH 6.0 Ur Specific [place] 1.020 Urine Protein Negative Urine Glucose (UA) Normal Urine Ketones Negative Urine Occult Blood 10 H Urine Nitrite Negative Urine Bilirubin Negative Urine Urobilinogen Normal Ur Leukocyte Esterase 100 H Urine RBC 0 SEEN Urine WBC 5-10 SEEN Ur Squamous Epith Cells 10-25 SEEN Urine Bacteria RARE Urine Mucus 0 SEEN 09/15/21 22:40 WBC RBC Hgb Hct MCV MCH MCHC RDW Std Deviation RDW Coeff of Jamilah Plt Count MPV Immature Gran % (Auto) Neut % (Auto) Lymph % (Auto) [place] % (Auto) Eos % (Auto) Baso % (Auto) Absolute Neuts (auto) Absolute Lymphs (auto) Nucleated RBC % Sodium Potassium Chloride Carbon Dioxide Anion Gap BUN Creatinine Estim Creat Clear Calc Est GFR (MDRD) Af Amer Est GFR (MDRD) Non-Af BUN/Creatinine Ratio Glucose Lactic Acid 0.7 Calcium Total Bilirubin Direct Bilirubin AST ALT Alkaline Phosphatase Total Protein Albumin Globulin Lipase Urine Color Urine Clarity Urine pH Ur Specific [place] Urine Protein Urine Glucose (UA) Urine Ketones Urine Occult Blood Urine Nitrite Urine Bilirubin Urine Urobilinogen Ur Leukocyte Esterase Urine RBC Urine WBC Ur Squamous Epith Cells Urine Bacteria Urine Mucus Radiography Diagnostic Testing: Clinical Impression(s) from Imaging Studies Abdomen/Pelvis CT 09/15/21 22:29 IMPRESSION: 1. Nonobstructing left renal calculi. 2. Fibroid uterus. 3. No other evidence of acute intra-abdominal or pelvic process. 4. Fluid extending into the adductor musculature from the inferior right hip joint. Electronically Signed: Antonino Cade DO at 23:20 EDT Reading Location ID and State: [address] [place] [address] Tel [phone], Service support , Discharge Plan Triage Chief Complaint: Abd Pain ED Provider: Homer Sprague Dx/Rx/DC Orders Clinical Impression: Postoperative abdominal pain, Fibroid, uterine Instructions: Abdominal Pain, ED Uterine Fibroids Prescriptions: No Action doxycycline hyclate 100 mg capsule 100 mg PO BID RF: 0 Primary Care Provider: Care Physician,No Primary Referrals: Sintia Mendez MD [STAFF PHYSICIAN] - 1 Week if not improving Care Physician,No Primary [Primary Care Provider] - Disposition Disposition: Home, Self Care
[2021-09-15 22:50] LABS: Mucous, Urine 0 SEEN /hpf (<or=2+); Red Blood Cells-Urine 0 SEEN /hpf (0-5)
[2021-09-15 22:58] LABS: Absolute Lymphocyte Count 4.18 X10^3/uL (0.83-4.51); Absolute Neutrophil Count 5.1 X10^3/uL (2.0-7.7); Basophil# 0.06 X10^3/uL; Basophil% 0.6 % (0-1); Eosinophil# 0.23 X10^3/uL; Eosinophils% 2.2 % (0-5); Hematocrit 42.6 % (37-47); Hemoglobin 15.2 g/dL (12.0-15.0); Lymphocyte # 4.18 X10^3/ul (0.83-4.51); Lymphocyte % 40.4 % (19-41); Mean Corp Hgb Conc 35.7 g/dL (32-36); Mean Corpuscular Hgb 32.1 pg (27.0-32.0); Mean Corpuscular Volume 89.9 fL (81-99); Mean Platelet Vol. 9.6 fl (6.2-12.0); Monocyte# 0.76 X10^3/uL; Monocyte% 7.4 % (0-10); NRBC Flagged by Analyzer 0 % (0-5); Neutrophil # 5.08 X10^3/uL (2.7-7.7); Neutrophil % 49.1 % (47-70); Platelet Count 339 K/mm3 (150-450); RBC Distribution Width CV 12.7 % (11.6-14.6); RBC Distribution Width SD 41.7 fl (35.1-43.9); Red Blood Count 4.74 M/mm3 (4.2-5.4); White Blood Count 10.3 K/mm3 (4.4-11.0)
[2021-09-15 23:06] LABS: Color, Urine Yellow (Yellow); Glucose, Dipstick Normal (Normal); Ketone-Dipstick Negative (Negative); Leukocyte Esterase-Dipstick 100 /ul (Negative); Nitrite-Dipstick Negative (Negative); Occult Blood-Urine 10 /ul (Negative); Protein-Dipstick Negative (Negative); Urine Bilirubin Dipstick Negative (Negative); Urine Clarity Sl. Cloudy (Clear); Urine Urobilinogen Normal (Normal)
[2021-09-15 23:15] LABS: AST(SGOT) 21 U/L (15-37); Alanine Aminotransfer ALT/SGPT 36 U/L (13-56); Albumin, Serum 3.7 g/dL (3.2-5.0); Alkaline Phosphatase 120 U/L (45-117); Anion Gap 3 (5-15); BUN 20 mg/dL (7-18); Bilirubin, Direct 0.09 mg/dL (0.00-0.30); Calcium,Total 10.7 mg/dL (8.5-10.1); Chloride 108 mmol/L (98-107); Creatinine, Serum 1.11 mg/dL (0.55-1.02); EST Glomerular Filtration Rate 56 mL/min (>60); Est Glom Filt Rate - Afr Amer 67 mL/min (>60); Estimated Creatinine Clearance 49.02 ml/min; Globulin 3.8 g/dL (2.2-4.2); Glucose 105 mg/dL (74-106); Lipase 181 U/L (73-393); Potassium 3.8 mmol/L (3.5-5.1); Protein, Total 7.5 g/dL (6.4-8.2); Sodium Level 139 mmol/L (136-145)
[2021-09-15 23:23] LABS: Squamous Epithelial Cells - UA 10-25 SEEN /hpf (5-10)
[2021-09-15 23:24] LABS: Bacteria RARE /hpf (None Seen); White Blood Cells 5-10 SEEN /hpf (0-5)
[2021-09-15 23:25] LABS: Lactic Acid 0.7 mmol/L (0.4-1.9)
[2021-09-15 23:59] VITALS: RESP 16; O2SAT 99
== END 2021-09-16 | disposition home or self-care (01) ==
PROVIDERS: Emergency Provider Emergency Medicine; Visit Provider Emergency Medicine
DX: D25.9 Leiomyoma of uterus, unspecified (principal); G89.18 Other acute postprocedural pain
CPT/HCPCS: 74177; 80048; 80076; 81001; 83605; 83690; 85025; 96360; 99283; J7030; Q9967; A4216

== ENCOUNTER → 2022-05-28 | Outpatient (CLI) | payer SELFPAY ==
--- NOTE | 2022-05-28 12:48 | VDLE_ITS ---
Reason For Study: PAIN RIGHT LEFT CFV is compressible, spontaneous, phasic, GSV is normal. competent and demonstrates normal CFV is compressible, spontaneous, phasic, augmentation. competent, and demonstrates normal Procedure augmentation. This is a venous duplex using B-mode, color FV is compressible, spontaneous, phasic, flow and spectral Doppler. competent and demonstrates normal Exam performed in department. augmentation. A preliminary report was called and/or faxed POP V is compressible, spontaneous, phasic, to Maxine @ [facility] @ competent and demonstrates normal 1:30pm. augmentation. PT to return to office for new cast and T/P Trunk is compressible. instructions. LT PerV is compressible. PTV is noncompressible with hypoecholucency seen within vessel from mid to proximal. Distal PTV is compressible with flow. VL/Venous Duplex US, Unilateral Interpretation Summary Acute deep vein thrombosis is noted in the left posterior tibial vein. Ordering Physician: Pelon Sweeney Referring Physician: NO PCP Performed By: Anne Cherry, RDPETER, RVT
== END | disposition home or self-care (01) ==
LOC: CVS 12:48
PROVIDERS: Visit Provider Physician Assistant
DX: S82.892A Other fracture of left lower leg, initial encounter for closed fracture (principal); M79.605 Pain in left leg
CPT/HCPCS: 93971

== ENCOUNTER 2022-06-10 22:45 | Emergency (ER) | payer SELFPAY ==
[2022-06-10 22:46] VITALS: BP 123/85; PULSE 70; RESP 16; TEMP 36.1; BMI 26.2
--- NOTE | 2022-06-10 23:23 | ED.VIS.LOWEX ---
HPI History of Present Illness Chief Complaint: Lower Extremity Injury Narrative Narrative: 51-year-old female presenting with left leg pain. She states its in her thigh. Previously broken left ankle in April. Subsequently had a DVT. She is been on Eliquis for a couple of weeks. She states area where the fracture is is actually feeling improved. The other part of her legs that are causing a problem. She has not taken anything for pain. She has not tried any ice or elevation. She is using crutches to ambulate around. She denies any new injury. Patient states she is concerned for a new DVT. No chest pain, palpitations, shortness of breath PFSH PFS Medical History DVT (deep venous thrombosis) Home Medications doxycycline hyclate 100 mg capsule 100 mg PO BID 09/15/21 [History Last Taken Unknown] apixaban 5 mg (74 tabs) tablets in a dose pack (Eliquis DVT-PE Treat 30D Start) 5 mg PO .COMPLEX #74 tabs 05/28/22 [Rx Last Taken Unknown] Allergy/AdvReac Type Severity Reaction Status Date / Time No Known Allergies Allergy Verified 05/28/22 09:50 Surgical History Hx of cholecystectomy Hx of dilation and curettage Social History Smoking Status: Never smoker ROS ROS ED Constitutional Constitutional ED: Denies chills or fever(s) Eyes Eyes: Denies blurry vision or change in vision ENT ENT ED: Denies ear pain or sore throat Cardiovascular Cardiovascular: Denies chest pain, palpitations or racing heartbeat Respiratory/Chest Respiratory/Chest: Denies cough, dyspnea or sputum Gastrointestinal Gastrointestinal: Denies abdominal pain, constipation, diarrhea, nausea or vomiting Genitourinary Genitourinary ED: Denies dysuria, hematuria or urinary frequency Musculoskeletal Musculoskeletal: Reports other Details: Left thigh pain ; Denies myalgias or neck pain Integumentary Denies abscess, Abrasions or rash Neurologic Neurologic: Denies headache(s), paresthesias or weakness Psychiatric Psychiatric: Denies anxiety, depression, suicidal ideation or suicidal thoughts Endocrine Endocrinology: Denies polydipsia or polyuria EXAM Physical Exam Const Vital Signs: 06/10/22 22:46 06/10/22 22:46 Temperature 96.9 F L 96.9 F L Temperature Source Temporal Temporal Pulse Rate 70 70 Respiratory Rate 16 16 Blood Pressure 123/85 H 123/85 H Blood Pressure Mean 97 97 Positive well nourished General Appearance ED: NAD HEENT Reports moist mucous membranes normocephalic Neck full ROM and supple Resp normal respiratory effort and no retractions Cardio regular rate and regular rhythm Extremity Extremity Narrative: There is a punctate area of bruise on the medial aspect of the left thigh. No cord palpated. Left foot brisk pulses. Neurovascular intact. Neuro oriented x3 and CN's II-XII intact bilaterally Sensorium / Orientation: alert Motor Exam: strength 5/5 throughout Psych mental status grossly normal MDM MDM MDM Narrative Medical decision making narrative: Patient presented to the emergency room out of concern she might of developed another clot. She is been on Eliquis for a couple of weeks. She denies any new injuries. Due to the timing that she came in at 11:30 PM I do not have ultrasound here. She is on Eliquis I have low low suspicion for DVT. I did offer her an outpatient prescription for ultrasound study. She was amenable to this. She is to use Tylenol at home for pain. Impression: 1. Left thigh pain 2. History of DVT Lab Data Attestation: I reviewed the patient's lab results. Discharge Plan Triage Chief Complaint: Lower Extremity Injury ED Provider: Mike De La Cruz Dx/Rx/DC Orders Prescriptions: No Action Eliquis DVT-PE Treat 30D Start 5 mg (74 tabs) tablets,dose pack 5 mg PO .COMPLEX Qty: 74 0RF Rx Instructions: 5 mg orally as directed. doxycycline hyclate 100 mg capsule 100 mg PO BID Label Comments: TAKE 1 CAPSULE BY MOUTH TWICE DAILY FOR 10 DAYS Primary Care Provider: Care Physician,No Primary Referrals: Care Physician,No Primary [Primary Care Provider] -
== END 2022-06-10 23:49 | disposition home or self-care (01) ==
PROVIDERS: Emergency Provider Student in an Organized Health Care Education/Training Program; Visit Provider Student in an Organized Health Care Education/Training Program
DX: M79.652 Pain in left thigh (principal); Z79.01 Long term (current) use of anticoagulants; Z86.718 Personal history of other venous thrombosis and embolism
CPT/HCPCS: 99282

== ENCOUNTER → 2022-07-05 | Outpatient (CLI) | payer SELFPAY ==
--- NOTE | 2022-07-05 10:08 | VDLE_ITS ---
Reason For Study: Pain Procedure LEFT This is a venous duplex using B-mode, color GSV is normal. flow and spectral Doppler. CFV is compressible, spontaneous, phasic, Exam performed in department. competent, and demonstrates normal augmentation. FV is compressible, spontaneous, phasic, competent and demonstrates normal augmentation. POP V is compressible, spontaneous, phasic, competent and demonstrates normal augmentation. T/P Trunk is compressible. PTV is noncompressible with no flow noted within. Compared to 05/28/2022. PeroV is noncompressible and dilated with minimal flow within. VL/Venous Duplex US, Unilateral Interpretation Summary Acute deep vein thrombosis is noted in the left posterior tibial vein. Acute de ep venous thrombosis noted in the left posterior tibial and peroneal veins, unchanged. Comparision to prior study reveals thrombus in peroneal vein was present at olvin t time Ordering Physician: Pelon Sweeney Performed By: Diamond Chan RVT
== END | disposition home or self-care (01) ==
PROVIDERS: Visit Provider Physician Assistant
DX: M25.572 Pain in left ankle and joints of left foot (principal); M79.605 Pain in left leg; S99.912A Unspecified injury of left ankle, initial encounter
CPT/HCPCS: 93971

== ENCOUNTER → 2022-07-10 | Outpatient (CLI) | payer SELFPAY ==
[2022-07-10 12:08] LABS: Absolute Lymphocyte Count 2.44 X10^3/uL (0.83-4.51); Basophil# 0.05 X10^3/uL; Basophil% 0.6 % (0-1); Eosinophil# 0.13 X10^3/uL; Eosinophils% 1.6 % (0-5); Hematocrit 44.3 % (37-47); Hemoglobin 14.8 g/dL (12.0-15.0); Lymphocyte # 2.44 X10^3/ul (0.83-4.51); Lymphocyte % 29.9 % (19-41); Mean Corp Hgb Conc 33.4 g/dL (32-36); Mean Corpuscular Hgb 30.2 pg (27.0-32.0); Mean Corpuscular Volume 90.4 fL (81-99); Mean Platelet Vol. 9.9 fl (6.2-12.0); Monocyte# 0.56 X10^3/uL; Monocyte% 6.9 % (0-10); NRBC Flagged by Analyzer 0 % (0-5); Neutrophil # 4.96 X10^3/uL (2.7-7.7); Neutrophil % 60.6 % (47-70); Platelet Count 330 K/mm3 (150-450); RBC Distribution Width CV 13.5 % (11.6-14.6); RBC Distribution Width SD 44.7 fl (35.1-43.9); White Blood Count 8.2 K/mm3 (4.4-11.0)
== END | disposition home or self-care (01) ==
LOC: BIMLAB 09:12
PROVIDERS: PCP Internal Medicine; Referring Provider Internal Medicine; Visit Provider Internal Medicine
DX: I82.409 Acute embolism and thrombosis of unspecified deep veins of unspecified lower extremity (principal)
CPT/HCPCS: 36415; 85025

== ENCOUNTER → 2022-10-05 | Outpatient (CLI) | payer SELFPAY ==
--- NOTE | 2022-10-05 12:57 | VDLE_ITS ---
Reason For Study: Swelling RIGHT LEFT CFV is compressible, spontaneous, phasic, GSV is normal. competent and demonstrates normal CFV is compressible, spontaneous, phasic, augmentation. competent, and demonstrates normal Procedure augmentation. This is a venous duplex using B-mode, color FV is compressible, spontaneous, phasic, flow and spectral Doppler. competent and demonstrates normal Exam performed in department. augmentation. A preliminary report was called and/or faxed POP V is compressible, spontaneous, phasic, to Dr. Power. competent and demonstrates normal augmentation. T/P Trunk is compressible. Lt PTV and Lt PeroV are partially compressible with minimal flow; improvement from previous study on 07/05/2022. VL/Venous Duplex US, Unilateral Interpretation Summary Chronic deep vein thrombosis is noted in the left posterior tibial vein, left p eroneal vein. Improved from previous study Ordering Physician: Miroslava Power Referring Physician: Miroslava Power Performed By: Katie Bronson RDCS, RVT
== END | disposition home or self-care (01) ==
LOC: CVS 12:56
PROVIDERS: PCP Internal Medicine; Referring Provider Internal Medicine; Visit Provider Internal Medicine
DX: I82.442 Acute embolism and thrombosis of left tibial vein (principal)
CPT/HCPCS: 93971

== ENCOUNTER 2024-04-16 21:21 | Emergency (ER) | payer SELFPAY ==
[2024-04-16 21:22] VITALS: BP 132/92; PULSE 120; RESP 18; TEMP 36.7; O2SAT 96; BMI 29.9
--- NOTE | 2024-04-17 00:25 | EX.ED.DYSGE1 ---
HPI History of Present Illness Chief Complaint: General Illness Informant: patient Onset/Context/Timing Onset: Days (3) Context: Gradual Onset Timing: Continuous Quality: Tightness Location: Chest Worsened by: Nothing Relieved by: Nothing Narrative Narrative: Patient presents with a sore throat, cough, chills, rhinorrhea, and headache that has been getting worse over the past 3 days. Patient states she feels some tightness in her chest. Patient states she just does not feel well. Patient states nothing makes it better and nothing makes it worse. Patient admits to some pain into her back. Patient denies any sick contacts. Patient denies any sputum production. [facility] Medical History Gallstones UTI (urinary tract infection) Bone fracture Back problem DVT (deep venous thrombosis) Home Medications ?Medication ?Instructions ?Recorded ?Last Taken ?Type NK 04/16/24 Unknown History Allergy/AdvReac Type Severity Reaction Status Date / Time No Known Allergies Allergy Verified 04/16/24 21:25 Family History Father Anxiety Mother Kidney disease Diabetes Age related osteoporosis Congestive heart failure Surgical History Normal colonoscopy Hx of dilation and curettage Hx of cholecystectomy Social History household members: none current occupational status: employed current occupation: [employer] Smoking Status: Never smoker Electronic Cigarette Use: not used alcohol intake: never substance use type: does not use what type of physical activity do you participate in: walking do you feel safe at home: Yes ROS ROS ED Constitutional Constitutional ED: Reports chills and subjective; Denies fever(s) Eyes Eyes: Denies blurry vision or change in vision ENT ENT ED: Reports rhinorrhea and sore throat Cardiovascular Cardiovascular: Reports chest pain; Denies palpitations Respiratory/Chest Respiratory/Chest: Reports cough; Denies dyspnea Gastrointestinal Gastrointestinal: Denies nausea or vomiting Genitourinary Genitourinary ED: Denies dysuria or hematuria Musculoskeletal Musculoskeletal: Reports back pain and myalgias; Denies neck pain Integumentary Denies abscess or rash Neurologic Neurologic: Reports headache(s); Denies weakness Allergic/Immunologic Allergic/Immunologic ED: Denies mouth swelling or urticaria EXAM Physical Exam Const Vital Signs: 04/16/24 21:22 04/16/24 22:08 Temperature 98.1 F Temperature Source Oral Pulse Rate 120 H Respiratory Rate 18 Respiratory Effort Normal Non-Labored Respiratory Pattern Normal Blood Pressure 132/92 H Blood Pressure Mean 105 Pulse Ox 96 Oxygen Delivery Method Room Air Positive well nourished and well developed General Appearance ED: well developed and NAD HEENT Reports moist mucous membranes Neck supple and no JVD Resp normal respiratory effort and clear to auscultation bilaterally Cardio regular rate and regular rhythm Rate: tachycardic GI non-tender and non-distended Palpation: soft Extremity normal to inspection General Extremety ED: Negative for edema or tenderness General Extremity: Negative for edema Neuro oriented x3, CN's II-XII intact bilaterally and no sensory deficits noted Sensorium / Orientation: alert Motor Exam: strength 5/5 throughout Psych mental status grossly normal MDM MDM MDM Narrative Medical decision making narrative: Differential diagnosis includes pneumonia, bronchitis, viral illness, and pharyngitis. COVID-19, influenza, and RSV PCR will be obtained to assess for viral illness. Lab Data Attestation: I reviewed the patient's lab results. Lab results narrative: COVID-19 PCR was reviewed and was positive. Influenza PCR was reviewed and was negative for influenza A and influenza B. RSV PCR was reviewed and was negative. Treatment and Re-Evaluation :: Patient was advised of her findings. Patient was instructed to drink plenty of fluids. Since the patient states she is unable to tolerate Tylenol, patient was instructed to take ibuprofen as needed for pain and fevers. Since the patient does not have any comorbid conditions, I do not feel Paxlovid will be of any benefit. Patient was advised that this is only beneficial for patients with comorbid conditions such as COPD, emphysema, diabetes, and coronary artery disease. Patient understands and is agreeable with the plan. Patient was instructed to follow-up with her primary care physician in 5 to 7 days. All questions were answered. Discharge Plan Triage Chief Complaint: General Illness ED Provider: Des Arreguin Dx/Rx/DC Orders Clinical Impression: COVID-19, Viral pharyngitis Instructions: Coronavirus Disease 2019 (COVID-19): Overview Prescriptions: No Action NK Primary Care Provider: Miroslava Power Referrals: Miroslava Power MD [Primary Care Provider] - 5-7 Days Print Language: Salvadorean Disposition Disposition: Home, Self Care
[2024-04-17 00:41] VITALS: BP 129/89; PULSE 98; RESP 16; TEMP 37.3; O2SAT 94
--- OUTSIDE RECORDS SUMMARY | 2024-04-17 00:41 | XMS RPT_ITS | CCD ---
Author Organization 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 20 capsule 0 09/12/2021 09/22/2021 Active Comment on above: Take 1 capsule by [facility] twice daily for 10 days. iv contrast (will be provided with radiology test) (1 source) Start: 10-02-2021 End: 10-03-2021 iv contrast (will be provided with radiology test) Indications: Acute abdomen , Nausea CT ABD/PEL -Inject, intravenously, once for 1 dose.No IV access, insert saline lock prior to the beginning of sedation, infusion, injection of imaging exam. Discontinue saline lock post exam. If Pt. has a central line or IVAD, may access for administration according to line specific nursing protocol. Once exam is complete flush line and de-access according to line specific nursing protocol in the CT contrast administration guidelines link. 1 Each 0 10/02/2021 10/03/2021 Active Comment on above: CT ABD/PEL -Inject, intravenously, once for 1 dose.No IV access, insert saline lock prior to the beginning of sedation, infusion, injection of imaging exam. Discontinue saline lock post exam. If Pt. has a central line or IVAD, may access for administration according to line specific nursing protocol. Once exam is complete flush line and de-access according to line specific nursing protocol in the CT contrast administration guidelines link. Completed/Discontinued Medications Medication Drug Class(es) Dates Sig (Normalized) Sig (Original) acetaminophen 500 mg oral tablet (13 sources) take 2 tablets by mouth every six hours as needed acetaminophen (TYLENOL EXTRA STRENGTH) 500 mg tablet Take 1,000 mg by mouth every 6 hours as needed. 0 Active Comment on above: Take 1,000 mg by deshawn th every 6 hours as needed. ibuprofen 200 mg oral tablet (13 sources) Nonsteroidal Anti-inflammatory Drug take 1 tablet by mouth every six hours as needed ibuprofen (MOTRIN) 200 mg tablet Take 200 mg by mouth every 6 hours as needed. 0 Active Comment on above: Take 200 mg by mouth every 6 hours as needed. Multivitamin capsule (13 sources) take 1 capsule by mouth once daily Multivitamin capsule Take 1 capsule by mouth once daily. 0 Active Comment on above: Take 1 capsule by mo uth once daily. Problems Active Problems Problem Classification Problem Date Documented Date Episodic/Chronic Abdominal pain (17 sources) Pain in female pelvis; Translations: [Pelvic and perineal pain] Onset: 09-07-2021 09-07-2021 Episodic Complications of surgical procedures or medical care (1 source) Postoperative infection; Translations: [Infection following a procedure, unspecified, initial encounter] Episodic Nausea and vomiting (2 sources) Nausea; Translations: [Nausea] Episodic Other female genital disorders (13 sources) Abnormal uterine bleeding; Translations: [Abnormal uterine and vaginal bleeding, unspecified] Onset: 04-18-2016 04-18-2016 Chronic Other nutritional; endocrine; and metabolic disorders (1 source) Decrease in appetite; Translations: [Anorexia] Episodic Other screening for suspected conditions (not mental disorders or infectious disease) (14 sources) Endometrium thickened; Translations: [Abnormal findings on diagnostic imaging of other specified body structures] Onset: 09-07-2021 09-07-2021 Chronic Residual codes; unclassified (1 source) Past history of procedure; Translations: [Other specified postprocedural states] Episodic Sexually transmitted infections (not HIV or hepatitis) (1 source) Human papillomavirus deoxyribonucleic acid test positive, high risk on cervical specimen; Translations: [Cervical high risk human papillomavirus (HPV) DNA test positive] Episodic Past or Other Problems Problem Classification Problem Date Documented Da te Episodic/Chronic Other screening for suspected conditions (not mental disorders or infectious disease) (13 sources) Increased prolactin level; Translations: [Other specified abnormal findings of blood chemistry] Onset: 04-16-2016 04-16-2016 Episodic Results Test Name Value Interpretation Reference Range Facility EMERGENCY REPORTon 2 EMERGENCY REPORT [facility] EMERGENCY ROOM REPORT NAME ACCOUNT SEX AGE ADMIT DISCHARGE PT MED. RECORD# NUMBER DATE DATE TYPE YUMIKO SHANNON [id number] F 51 02/17/22 02/17/22 3 [id number] ROOM: ER DATE OF : 1970 DICTATING PHYSICIAN: Alex De Los Santos CHIEF COMPLAINT/HISTORY OF PRESENT ILLNESS: Patient came in feeling dizzy and lightheaded. Patient gave blood today and then she was out watching a ball game. While she was out in the sun she got very lightheaded. She almost passed out. She did not pass out. She denies any chest pain. No shortness of breath. No nausea or vomiting. Because of the symptoms EMS was called. EMS placed an IV in her and brought her to the emergency department. She has had these episodes in the past. PAST MEDICAL HISTORY: Otherwise, unremarkable. PAST SURGICAL HISTORY: Denies. SOCIAL HISTORY: She does not smoke or drink. EMERGENCY DEPARTMENT COURSE AND TREATMENT: We did want to do blood work and EKG for this near syncopal episode. She declined, thus risks and benefits were explained. She was given fluids. She was given Gatorade. She feels better at this time. She was given IV fluids. DIAGNOSIS: Near syncope, probable secondary to hypovolemia, blood donation. PLAN/DISPOSITION: She will be discharged in stable condition. Dictated By: Alex De Los Santos DO 02/17/22 19:50 JOB #: [id number] Transcribed By: rafael 02/18/22 09:49 Electronically signed by: JARETH De Los Santos DO 02/24/22 07:28 Page 1 of 1 YUMIKO SHANNON Emergency Room Report Normal [facility] [place] 10-11-2021 GARCIA Telephone (GYNMN) YUMIKO SHANNON ([id number]) 1970 F Date Time Provider Department 10/11/21 ISSA HILLIARD During your visit today, we recorded the following information about you: Issa Hilliard MD 10/11/2021 9:05 AM Signed Gynecology Telephone Encounter 50 year old with abdominal discomfort, thickened endometrium s/p hysteroscopy showing benign pathology. #Thickened endometrium: patient with 10-year history of bleeding 1-2x per year, with recent FSH and E2 consistent with premenopausal state. She presented with vaginal discharge 06/2021 and had pelvic ultrasound that showed 1.6cm endometrial stripe. Hysteroscopy 09/07 showed thickened endometrium and blind curettage sampling showed focally polypoid endometrial tissue with degenerative changes. Patient reports abdominal pain since hysteroscopy with accompanying decreased appetite, night sweats and 9 lb weight loss in the past month. It is possible that patient has uterine or other malignancy, and entire endometrial cavity may not have been sampled secondary to blind endometrial sampling. DDx also includes malignancy of unknown source vs. Postoperative sequelae. --CA 125 ordered but never drawn, encouraged patient to have this drawn --> CA 125 normal at 17 --CT A/P ordered --> no acute pathology in abdomen or pelvis, diverticulosis noted, left nephrolithiasis without obstructive uropathy, small fibroid uterus (maximum fibroid size 3cm) --Consider repeat hysteroscopy with visually directed sampling --Patient to keep GI appointment on October 24 --Follow up pending the above results, consider [place] [facility] [facility] referral if concerning findings. I called and spoke with patient about negative CT scan findings and normal CA 125. Given benign findings, suspect her symptoms of abdominal pain likely GI in etiology. Recommend patient follow up with GI for scheduled appointment on 10/24 and then reach out if ongoing abdominal pain or any new bleeding. At that time, we could consider repeat endometrial sampling given that first biopsy was blind DANDC. Issa Hilliard MD Clinical Fellow PGY-6 Minimally Invasive Gynecologic Surgery Department of Obstetrics and Gynecology [place], [place] 10/11/21 Allergies As of Date: 10/11/2021 (No Known Allergies) Date Reviewed: 10/09/2021 Reviewed by: Lina Anthony RN - Fully Assessed Reason for Visit: Results [95] Prescriptions as of 10/11/2021 - Multivitamin capsule Take 1 capsule by mouth once daily. - ibuprofen (MOTRIN) 200 mg tablet Take 200 mg by mouth every 6 hours as needed. - acetaminophen (TYLENOL EXTRA STRENGTH) 500 mg tablet Take 1,000 mg by mouth every 6 hours as needed. Problem List As Of Date 10/11/2021 Noted Resolved Elevated prolactin level (HCC) [R79.89] 04/16/2016 Abnormal uterine bleeding [N93.9] 04/18/2016 Thickened endometrium [R93.89] 09/07/2021 Pelvic pain in female [R10.2] 09/07/2021 Encounter Status:Closed by ISSA HILLIARD on 10/11/21 Normal [facility] CT ABD/PEL W IVCONon 022 CT ABD/PEL W IVCON * * *Final Report* * * DATE OF EXAM: Oct 09 2021 2:18PM CAC 0530 - CT ABD/PEL W IVCON / PROCEDURE REASON: multiple diagnoses * * * * Physician Interpretation * * * * EXAMINATION: CT ABDOMEN AND PELVIS WITH IV CONTRAST CLINICAL HISTORY: Patient with abdominal pain since hysteroscopy 09/07, also accompanying symptoms of weight loss, night sweats, appetite change, concerning for possible malignancy, consider uterine source TECHNIQUE: CT of the abdomen and pelvis was performed using standard technique, scanning from just above the dome of the diaphragm to the symphysis pubis. MQ: CTAP_3 Contrast: IV: 150 ml of Omnipaque 300 : ml of CT Radiation dose: Integrated Dose-length product (DLP) for this visit = 610 mGy*cm. CT Dose Reduction Employed: Automated exposure control (AEC) COMPARISON: Right upper quadrant ultrasound 04/27/2016 (cholelithiasis, RIGHT kidney cyst, hepatic steatosis) RESULT: Liver: Diffuse steatosis. Normal contour. No mass. Biliary: No bile duct dilation. Status post cholecystectomy Spleen: No mass. No splenomegaly. Pancreas: No mass or duct dilation. Adrenals: No mass. Kidneys: Subcentimeter low-attenuation lesions, too small to accurately characterize but likely cysts as seen on prior ultrasound. In addition there are multiple LEFT kidney stones, largest upper pole stone measuring up to 0.7 cm in largest lower pole stone measuring up to 0.4 cm. No hydronephrosis. GI tract: No dilation or wall thickening. Diverticulosis without acute diverticulitis. Lymph nodes: Reactive nodes measuring up to 0.6 cm short axis LEFT para-aortic region. No lymphadenopathy by size criteria. Mesentery/Peritoneum: No ascites or mass. Retroperitoneum: No mass or fluid collection. Vasculature: - Abdominal aorta and iliac arteries: No aneurysm. - Celiac and SMA: Patent without stenosis. - Portal venous system (SMV, splenic vein, portal vein and branches): Patent. - Hepatic veins: Patent. Pelvis: Fibroid uterus, largest myometrial fibroid measuring 3 cm at the RIGHT uterine fundus. Trace vaginal gas, likely iatrogenic. No mass, lymphadenopathy or fluid collection. Bladder within normal limits. Bones/Soft Tissues: No destructive or traumatic lesion. Lower thorax: Mild atelectasis. No consolidation or effusion. Children'S Service Worker (topogram) images: No additional findings. IMPRESSION: No acute pathology seen in abdomen or pelvis. Diverticulosis without acute diverticulitis. Diffuse hepatic steatosis without mass. Left nephrolithiasis without obstructive uropathy. Fibroid uterus. Paper Control Clerk: CESAR Transcribe Date/Time: Oct 09 2021 2:36P Dictated by : ESTEFANI ROSARIO MD This examination was interpreted and the report reviewed and electronically signed by: ESTEFANI ROSARIO MD on Oct 09 2021 2:41PM EST [id number] [facility] YUM[facility] ([id number]) 1970 F Date Time Provider Department 10/05/21 ISSA HILLIARD [facility] During your visit today, we recorded the following information about you: Samia Gaxiola 10/05/2021 9:05 AM Signed Patient called in with concerns in regards to the results of recent lab work she has had done. Patient was requested to contact office when results were placed. Brianne Marcos RN 10/05/2021 9:33 AM Signed Component Latest Ref Rng AND Units 10/03/2021 CA 125 <39 U/mL 17 ALBERTO 10/02/2021 Assessment AND Plan Encounter Diagnosis ICD-10-CM 1. Thickened endometrium R93.89 2. Abdominal pain, unspecified abdominal location R10.9 3. History of hysteroscopy Z98.890 4. Acute abdomen R10.0 CT ABD/PEL W IVCON iv contrast (will be provided with radiology test) 5. N[address] R11.0 CT ABD/PEL W IVCON iv contrast (will be provided with radiology test) 50 year old presents for virtual visit discussion re: abdominal discomfort, thickened endometrium. #Thickened endometrium: patient with 10-year history of bleeding 1-2x per year, with recent FSH and E2 consistent with premenopausal state. She presented with vaginal discharge 06/2021 and had pelvic ultrasound that showed 1.6cm endometrial stripe. Hysteroscopy 09/07 showed thickened endometrium and blind curettage sampling showed focally polypoid endometrial tissue with degenerative changes. Patient reports abdominal pain since hysteroscopy with accompanying decreased appetite, night sweats and 9 lb weight loss in the past month. It is possible that patient has uterine or other malignancy, and entire endometrial cavity may not have been sampled secondary to blind endometrial sampling. DDx also includes malignancy of unknown source vs. Postoperative sequelae. --CA 125 ordered but never drawn, encouraged patient to have this drawn --CT A/P ordered --Consider repeat hysteroscopy with visually directed sampling --Patient to keep GI appointment on October 24 --Follow up pending the above results, consider [place] [facility] [facility] referral if concerning findings. Issa Hilliard MD Clinical Fellow PGY-6 Minimally Invasive Gynecologic Surgery Department of Obstetrics and Gynecology [place], [place] 10/02/2021 Allergies As of Date: 10/05/2021 (No Known Allergies) Date Reviewed: 09/15/2021 Reviewed by: Cassy Ley MD - Fully Assessed Reason for Visit: Results [95] Prescriptions as of 10/09/2021 - Multivitamin capsule Take 1 capsule by mouth once daily. - ibuprofen (MOTRIN) 200 mg tablet Take 200 mg by mouth every 6 hours as needed. - acetaminophen (TYLENOL EXTRA STRENGTH) 500 mg tablet Take 1,000 mg by mouth every 6 hours as needed. Problem List As Of Date 10/05/2021 Noted Resolved Elevated prolactin level (HCC) [R79.89] 04/16/2016 Abnormal uterine bleeding [N93.9] 04/18/2016 Thickened endometrium [R93.89] 09/07/2021 Pelvic pain in female [R10.2] 09/07/2021 Encounter Status:Closed by SAMIA GAXIOLA on 10/09/21 Normal [facility] CA 125 BLDon 10-03-2021 Cancer Ag 125 Qn 17 [arb'U]/mL Normal <39 [facility] Comment on above: Order Comment: Speci men Type: BLOOD SPECIMENOrdering Facility: [facility] Address: [address] [place] [address] Result Comment: CA 1 25 test methodology used is the Electrochemiluminescence Immunoassay by [employer]. The reference interval is based on the 95th percentile of 240 apparently healthy premenopausal and postmenopausal women. At a cutoff value of 65 U/mL, the test sensitivity to distinguish ovarian carcinoma (FIGO stage I to IV) versus benign gynecological disease is 79%, with a specificity of 82%. Reference: Cancer Antigen 125 (CA 125 II) [package insert V 1.0 [place]]. [employer], [place], [place] (March 2015) Performed By: #### C A125 ####[facility] LABCLIA [id number] [address] [place] 09-18-2021 GARCIA Telephone (OBGYWM) YUMIKO SHANNON ([id number]) 1970 F Date Time Provider Department 09/18/21 CASSY LEY During your visit today, we recorded the following information about you: Marcela Posadas RN 09/18/2021 2:08 PM Addendum Patient calling office wanting to cancel her post op appointment that is scheduled with you for this Friday 09/22. Patient states she is feeling a little better, but still unable to work. Denies any signs of infection and is still currently on antibiotic. Patient still has not made appointment with GI, but would like to. Patient transferred to GI to make an appointment. Saturday's appointment has been cancelled. Patient states she will rescheduled if provider feels she needs to be seen again. Patient was last seen in office on 09/15/21. Marcela Ortez 09/18/2021 3:01 PM Signed Patient called asking if GI referral could be faxed to Dr. Ni at [phone]. Cassy Ley MD 09/19/2021 11:05 AM Signed Please fax MD Michael Mcghee LPN 09/19/2021 11:31 AM Signed Order faxed Leslie Mcpherson RN 09/19/2021 1:19 PM Signed Patient called. Needs last office visit note faxed also. Completed. Leslie Mcpherson RN Allergies As of Date: 09/18/2021 (No Known Allergies) Date Reviewed: 09/15/2021 Reviewed by: Cassy Ley MD - Fully Assessed Reason for Visit: Post Op [174] Prescriptions as of 09/19/2021 - doxycycline hyclate (VIBRAMYCIN) 100 mg capsule Take 1 capsule by mouth twice daily for 10 days. - Multivitamin capsule Take 1 capsule by mouth once daily. - ibuprofen (MOTRIN) 200 mg tablet Take 200 mg by mouth every 6 hours as needed. - acetaminophen (TYLENOL EXTRA STRENGTH) 500 mg tablet Take 1,000 mg by mouth every 6 hours as needed. Problem List As Of Date 09/18/2021 Noted Resolved Elevated prolactin level (HCC) [R79.89] 04/16/2016 Abnormal uterine bleeding [N93.9] 04/18/2016 Thickened endometrium [R93.89] 09/07/2021 Pelvic pain in female [R10.2] 09/07/2021 Encounter Status:Closed by MICHAEL REED LPN on 09/19/21 [facility] CNOVon 09-15-2021 CNOV Office Visit (OBGYWM ) YUMIKO SHANNON ([id number]) 1970 F Date Time Provider Department 09/15/21 10:00 AM CASSY LEY During your visit today, we recorded the following information about you: Temperature Blood pressure Weight 97.6 degrees 112/72 76.2 kg Cassy Ley MD 09/15/2021 11:26 AM Signed Yumiko Shannon is a 50 year old female who presents for abdominal pain. HPI: Patient presents with abdominal pain that is stable from last week. Movement triggers the pain and it guzman AND feels like something is tearing. Resting makes the pain better and she feels well in the morning. Her pain is mostly left sided but can be on the right or under her belly button. Denies fevers. Her appetite is still decreased. Denies N/V or diarrhea but has some constipation. OB History T0 L0 SAB0 IAB0 Ectopic0 Multiple0 Live Births0 [place] History LMP: LMP Unknown, Postmenopausal Age at Menarche: Age at First : Age at Menopause: [place] History Comments: Sexual Activity: Never; No partner data on record Contraception: No contraception data on record PAST MEDICAL HISTORY Diagnosis Date - Acute cholecystitis Gall Bladder Pain - Migraines PAST SURGICAL HISTORY Procedure Laterality Date - CHOLECYSTECTOMY 05/25/2016 - CLAY, DIAG AND/OR THERAPEUTIC 09/07/2021 at [facility] - and Uterine Polypectomy FAMILY HISTORY Problem Relation Age of Onset - Diabetes Mother - Heart Mother CHF - Kidney Disease Mother Kidney Failure - Osteoporosis Mother - Hypertension Mother - other (Hypoglycemia) Sister - Blood Disease Brother Bleeder - Heart Brother Enlarged Heart Social History Tobacco Use - Smoking status: Never Smoker - Smokeless tobacco: Never Used Substance Use Topics - Alcohol use: No - Drug use: No Current Outpatient Medications Medication Sig - doxycycline hyclate (VIBRAMYCIN) 100 mg capsule Take 1 capsule by mouth twice daily for 10 days. - Multivitamin capsule Take 1 capsule by mouth once daily. - ibuprofen (MOTRIN) 200 mg tablet Take 200 mg by mouth every 6 hours as needed. (Patient not taking: Reported on 09/12/2021 ) - acetaminophen (TYLENOL EXTRA STRENGTH) 500 mg tablet Take 1,000 mg by mouth every 6 hours as needed. (Patient not taking: Reported on 09/12/2021 ) No current facility-administered medications for this visit. Allergies As of Date: 09/15/2021 (No Known Allergies) Fully Assessed 09/15/2021 Allergies and current medication updated:Yes EXAM: BP 112/72 Temp (Src) 97.6 (Left Tympanic) Wt 168 lb (76.2kg) GENERAL: pleasant, female in no apparent distress CHEST: Normal inspiratory effort ABDOMEN: soft and no masses; minimal abdominal tenderness, no rebound or guarding PELVIC: deferred NEURO: alert and oriented x3,exam grossly non-focal EXTREMITIES: normal ASSESSMENT AND PLAN: 50yo female with abdominal pain Patient with h/o abdominal pain prior to surgery. Her exam is overall benign. At this time there is no evidence her pain is related to her recent surgery. She has decreased appetite so would recommend GI evaluation. All questions answered AND patient agrees with plan. I spent a total of 23 minutes on the date of the service which included preparing to see the patient, [id number] patient care, completing clinical documentation, performing a medically appropriate examination and counseling and educating the patient/family/caregiver. Cassy Ley MD Referring Provider: SELF [200] Allergies As of Date: 09/15/2021 (No Known Allergies) Date Reviewed: 09/15/2021 Reviewed by: Cassy Ley MD - Fully Assessed Reason for Visit: Post Op [174] Primary Visit Diagnosis:Decreased appetite [R63.0] Other Visit Diagnosis:Generalized abdominal pain [R10.84] Order(s):CONSULT TO GASTROENTEROLOGY [9010] Order #: [id number]: 1 FUTURE Prescriptions as of 09/15/2021 - doxycycline hyclate (VIBRAMYCIN) 100 mg capsule Take 1 capsule by mouth twice daily for 10 days. - Multivitamin capsule Take 1 capsule by mouth once daily. - ibuprofen (MOTRIN) 200 mg tablet Take 200 mg by mouth every 6 hours as needed. - acetaminophen (TYLENOL EXTRA STRENGTH) 500 mg tablet Take 1,000 mg by mouth every 6 hours as needed. Problem List As Of Date 09/15/2021 Noted Resolved Elevated prolactin level (HCC) [R79.89] 04/16/2016 Abnormal uterine bleeding [N93.9] 04/18/2016 Thickened endometrium [R93.89] 09/07/2021 Pelvic pain in female [R10.2] 09/07/2021 Encounter Status:Closed by CASSY LEY on 09/15/21 [facility] 09-14-2021 CNPN Telephone (OBGYWM) YUMIKO SHANNON ([id number]) 1970 F Date Time Provider Department 09/14/21 CASSY LEY OBGYWM During your visit today, we recorded the following information about you: Marcela Posadas RN 09/14/2021 2:37 PM Signed Patient calling with increased pain in her LLQ of abdomen with movement. Patient states when she is up and moving she states her side feels like it is ripping apart and rates pain at an 8 out of 10. Patient is not currently taking anything for pain and last took Tylenol last evening. Patient was seen in office on 09/12 for increased abdominal pain and was given antibiotic for possible post op infection. Patient had Hysteroscopy DANPR and polypectomy on 09/07. Patient denies any fever, diarrhea, nausea/vomiting, abnormal vaginal discharge. Per patient she has not had a BM since 09/12. Patient states she would not be able to arrange transportation to office for visit until tomorrow if she needs to be seen. Marcela Ley MD 09/14/2021 3:19 PM Signed I recommend she take ibuprofen AND tylenol alternating to control the pain. Also should try prune juice or miralax if constipated. If having severe pain would recommend her going to the ED. Otherwise please schedule her with me at 10am tomorrow. If she is feeling better tomorrow appointment can be canceled. has no openings but would be in the office then. Thanks. MD Marcela Mcghee RN 09/14/2021 3:25 PM Signed Patient notified and voiced understanding of information and instructions below. Appointment scheduled for tomorrow. Marcela Posadas RN Allergies As of Date: 09/14/2021 (No Known Allergies) Date Reviewed: 09/12/2021 Reviewed by: Cassy Ley MD - Fully Assessed Reason for Visit: Abdominal Pain [1] Prescriptions as of 09/14/2021 - doxycycline hyclate (VIBRAMYCIN) 100 mg capsule Take 1 capsule by mouth twice daily for 10 days. - Multivitamin capsule Take 1 capsule by mouth once daily. - ibuprofen (MOTRIN) 200 mg tablet Take 200 mg by mouth every 6 hours as needed. - acetaminophen (TYLENOL EXTRA STRENGTH) 500 mg tablet Take 1,000 mg by mouth every 6 hours as needed. Problem List As Of Date 09/14/2021 Noted Resolved Elevated prolactin level (HCC) [R79.89] 04/16/2016 Abnormal uterine bleeding [N93.9] 04/18/2016 Thickened endometrium [R93.89] 09/07/2021 Pelvic pain in female [R10.2] 09/07/2021 Encounter Status:Closed by MARCELA POSADAS RN on 09/14/21 [facility] YUMIKO SHANN[facility] ([id number]) 1970 F Date Time Provider Department 09/14/21 MARCELA PHAM GMIGFV During your visit today, we recorded the following information about you: Elis Stephens RN 09/14/2021 11:04 AM Signed Patient left VM on nurse triage line. She would like a return call from either a nurse or Dr. Pham. KOJO Dubois RN 09/14/2021 11:52 AM Signed Returned patient's call, verified name and . Patient requesting appointment with Dr. Pham for a second opinion regarding fibroids. Offered patient Dr. Pham's soonest available for both main and [facility]. Patient would like to be seen sooner. Accepted virtual appointment with Dr. Hilliard on 10/02. Elis Stephens RN Allergies As of Date: 09/14/2021 (No Known Allergies) Date Reviewed: 09/12/2021 Reviewed by: Cassy Ley MD - Fully Assessed Reason for Visit: Nurse Triage Call [185] Prescriptions as of 09/14/2021 - doxycycline hyclate (VIBRAMYCIN) 100 mg capsule Take 1 capsule by mouth twice daily for 10 days. - Multivitamin capsule Take 1 capsule by mouth once daily. - ibuprofen (MOTRIN) 200 mg tablet Take 200 mg by mouth every 6 hours as needed. - acetaminophen (TYLENOL EXTRA STRENGTH) 500 mg tablet Take 1,000 mg by mouth every 6 hours as needed. Problem List As Of Date 09/14/2021 Noted Resolved Elevated prolactin level (HCC) [R79.89] 04/16/2016 Abnormal uterine bleeding [N93.9] 04/18/2016 Thickened endometrium [R93.89] 09/07/2021 Pelvic pain in female [R10.2] 09/07/2021 Encounter Status:Closed by ELIS STEPHENS on 09/14/21 Normal [facility] HPV W/GENOTYPE THIN PREPon 0 09-13-2021 HPV 16 Ag Ql (Unsp spec) Negative Normal Negative for HPV DNA high risk type 16 by PCR [facility] Comment on above: Order Comment: Speci men Type: MICROBIAL ISOLATEOrdering Facility: [facility] Address: [address] [place] [address] Performed By: #### H PVHRT ####[facility] [id number] [address] [place] HPV 18 Ag Ql (Unsp spec) Negative Normal Negative for HPV DNA high risk type 18 by PCR [facility] Comment on above: Order Comment: Speci men Type: MICROBIAL ISOLATEOrdering Facility: [facility] Address: [address] [place] [address] Performed By: #### H PVHRT ####[facility] [id number] [address] STATES OF [facility] HPV 31+33+35+39+45+51+ 52+56+58+59+66+68 DNA [place]+probe Ql (Cvx) Negative for HPV DNA high risk types: 31,33,35,39,45,51,52,56,58,5 9,66,68 by PCR. Normal Negative for HPV DNA high risk types: 31,33,35,39, 45,51,52,56, 58,59,66,68 by PCR. [facility] Comment on above: Order Comment: Speci men Type: MICROBIAL ISOLATEOrdering Facility: [facility] Address: [address] [place] [address] Performed By: #### H PVHRT ####[facility] [id number] [address] OF [facility] CNOVon 09-12-2021 CNOV Office Visit (OBGYWM ) YUMIKO SHANNON ([id number]) 1970 F Date Time Provider Department 09/12/21 3:10 PM CASSY LEY OBGYWM During your visit today, we recorded the following information about you: Temperature Weight 98.1 degrees 76.3 kg Cassy Ley MD 09/12/2021 3:18 PM Signed DATE OF SERVICE: 09/12/2021 SURGERY AND DATE: Hysteroscopy Dilation and Curettage; Uterine Polypectomy 09/07/21 at [facility] Yumiko Shannon is a 50 year old female who presents for concerns. HPI: Patient presents with some increased abdominal pain today. Also reports decreased appetite since surgery. Unsure about fever but she has felt hot today. OB History T0 L0 SAB0 IAB0 Ectopic0 Multiple0 Live Births0 [place] History LMP: LMP Unknown, Postmenopausal Age at Menarche: Age at First : Age at Menopause: [place] History Comments: Sexual Activity: Never; No partner data on record Contraception: No contraception data on record PAST MEDICAL HISTORY Diagnosis Date - Acute cholecystitis Gall Bladder Pain - Migraines PAST SURGICAL HISTORY Procedure Laterality Date - CHOLECYSTECTOMY 05/25/2016 - DANDC, DIAG AND/OR THERAPEUTIC 09/07/2021 at [facility] - and Uterine Polypectomy FAMILY HISTORY Problem Relation Age of Onset - Diabetes Mother - Heart Mother CHF - Kidney Disease Mother Kidney Failure - Osteoporosis Mother - Hypertension Mother - other (Hypoglycemia) Sister - Blood Disease Brother Bleeder - Heart Brother Enlarged Heart Social History Tobacco Use - Smoking status: Never Smoker - Smokeless tobacco: Never Used Substance Use Topics - Alcohol use: No - Drug use: No Current Outpatient Medications Medication Sig - Multivitamin capsule Take 1 capsule by mouth once daily. - doxycycline hyclate (VIBRAMYCIN) 100 mg capsule Take 1 capsule by mouth twice daily for 10 days. - ibuprofen (MOTRIN) 200 mg tablet Take 200 mg by mouth every 6 hours as needed. (Patient not taking: Reported on 09/12/2021 ) - acetaminophen (TYLENOL EXTRA STRENGTH) 500 mg tablet Take 1,000 mg by mouth every 6 hours as needed. (Patient not taking: Reported on 09/12/2021 ) No current facility-administered medications for this visit. Allergies As of Date: 09/12/2021 (No Known Allergies) Fully Assessed 09/12/2021 Allergies and current medication updated:Yes EXAM: Temp (Src) 98.1 (Left Tympanic) Wt 168 lb 3.2 oz (76.3kg) GENERAL: pleasant, female in no apparent distress ABDOMEN: soft and no masses; minimal tenderness, no rebound or guarding PELVIC: external genitalia normal, normal Bartholin's glands, urethra, Bayshore's glands, no vulvar lesions, no cervical lesions, good vaginal support, scant discharge present, normal appearing perineal body and perianal region BIMANUAL: uterus with mild tenderness, no adnexal tenderness ASSESSMENT AND PLAN: 50yo female with pelvic pain s/p hysteroscopy Will start doxycycline for possible post-op infection Patient to update the office in 2-3 days or if develops increased pain/fevers Cassy Ley MD Referring Provider: SELF [200] Allergies As of Date: 09/12/2021 (No Known Allergies) Date Reviewed: 09/12/2021 Reviewed by: Cassy Ley MD - Fully Assessed Reason for Visit: Post Op [174] Primary Visit Diagnosis:Postoperative infection, unspecified type, initial encounter [T81.40XA] Order(s):UA DIP, URINE (POC) [4658910] Order #: [id number]. #:[id number] doxycycline hyclate (VIBRAMYCIN) 100 mg capsuleTake 1 capsule by mouth twice daily for 10 days.Disp: 20 capsuleRfl: 0 Prescriptions as of 09/12/2021 - doxycycline hyclate (VIBRAMYCIN) 100 mg capsule Take 1 capsule by mouth twice daily for 10 days. - Multivitamin capsule Take 1 capsule by mouth once daily. - ibuprofen (MOTRIN) 200 mg tablet Take 200 mg by mouth every 6 hours as needed. - acetaminophen (TYLENOL EXTRA STRENGTH) 500 mg tablet Take 1,000 mg by mouth every 6 hours as needed. Problem List As Of Date 09/12/2021 Noted Resolved Elevated prolactin level (HCC) [R79.89] 04/16/2016 Abnormal uterine bleeding [N93.9] 04/18/2016 Thickened endometrium [R93.89] 09/07/2021 Pelvic pain in female [R10.2] 09/07/2021 Prescriptions ordered this encounter Disp Refills Start End DOXYCYCLINE HYCLATE 100 MG CAPSULE 20 c* 0 09/12/2021 09/22/2021 Route: ORAL Sig: Take 1 capsule by mouth twice daily for 10 days. Encounter Status:Closed by CASSY LEY on 09/12/21 [facility] YUM[facility] ([id number]) 1970 F Date Time Provider Department 09/12/21 JUAN MANUEL BURNETT OBGYWM During your visit today, we recorded the following information about you: Leslie Mcpherson RN 09/12/2021 11:07 AM Signed Received a call from [facility] Cytology lab. In the Pap order comments it says to run high risk HPV. In order to do this an order for HPV needs placed. Cytology will watch for the order. Thank you. Leslie Mcpherson RN Juan Manuel Burnett MD 09/12/2021 11:31 AM Signed Ordered. Thanks Michael Reed LPN 09/12/2021 12:48 PM Signed Per lab pap order that was placed today will need cancelled and the order that needs place is for HPV only. Lab will watch for the order to be placed Michael Caponeve OYSTER FLOATER 09/12/2021 12:48 PM Signed Addended by: MICHAEL REED LPN on: 09/12/2021 12:48 PM Modules accepted: Orders Michael Reed LPN 09/12/2021 4:29 PM Signed Addended by: MICHAEL REED LPN on: 09/12/2021 04:29 PM Modules accepted: Orders Juan Manuel Burnett MD 09/13/2021 8:34 AM Signed Addended by: JUAN MANUEL BURNETT on: 09/13/2021 08:34 AM Modules accepted: Orders Juan Manuel Burnett MD 09/15/2021 10:38 AM Signed Please send letter about normal pap and follow up one year. [facility]18[facility]21 10:15 AM Signed Normal pap letter sent Allergies As of Date: 09/12/2021 (No Known Allergies) Date Reviewed: 09/12/2021 Reviewed by: Cassy Ley MD - Fully Assessed Reason for Visit: Lab Orders [1688] Primary Visit Diagnosis:Cervical high risk HPV (human papillomavirus) test positive [R87.810] Order(s):HPV W/GENOTYPE THIN PREP [SQHPVHRT] Order #: [id number]. #:[id number] Prescriptions as of 09/18/2021 - doxycycline hyclate (VIBRAMYCIN) 100 mg capsule Take 1 capsule by mouth twice daily for 10 days. - Multivitamin capsule Take 1 capsule by mouth once daily. - ibuprofen (MOTRIN) 200 mg tablet Take 200 mg by mouth every 6 hours as needed. - acetaminophen (TYLENOL EXTRA STRENGTH) 500 mg tablet Take 1,000 mg by mouth every 6 hours as needed. Problem List As Of Date 09/12/2021 Noted Resolved Elevated prolactin level (HCC) [R79.89] 04/16/2016 Abnormal uterine bleeding [N93.9] 04/18/2016 Thickened endometrium [R93.89] 09/07/2021 Pelvic pain in female [R10.2] 09/07/2021 Encounter Status:Closed by JUAN MANUEL BURNETT on 09/12/21 Normal [facility] UA DIP, URINE (POC)on 2021 BILIRUBIN UA (POCT) Negative Negative [facility] CLARITY UA (POCT) Clear [facility] COLOR UA (POCT) Yellow [facility] GLUCOSE UA (POCT) Negative Negative mg/dL [facility] HEMOGLOBIN/BLOOD UA (POCT) Trace-intact Abnormal Negative [facility] KETONE UA (POCT) Negative Negative mg/dL [facility] LEUKOCYTES UA (POCT) Negative Negative [facility] NITRITE UA (POCT) Negative Negative [facility] PH UA (POCT) 6.0 4.5 - 8.0 [facility] Protein Ql (U) Negative Negative mg/dL [facility] SPECIFIC GRAVITY UA (POCT) 1.015 1.005 - 1.030 [facility] UROBILINOGEN UA (POCT) 0.2 E.U./dL Normal E.U./dL [facility] ANES POSTPROC EVALon 022 ANES POSTPROC EVAL HNO ID: [id number] Author: Pili Slaughter MD Service: Anesthesiology Author Type: Anesthesiologist Type: Anesthesia Postprocedure Evaluation Filed: 09/07/2021 1:41 PM Note Text: POST ANESTHESIA EVALUATION NOTE : 1970 Procedure Summary Date: 09/07/21 [place] / [place] [place] Anesthesia Start: 1224 Anesthesia Stop: 1255 Procedures: HYSTEROSCOPY, D AND C (N/A Uterus) POLYPECTOMY UTERINE (N/A Uterus) Diagnosis: Thickened endometrium Pelvic pain in female Surgeons: Juan Manuel Burnett MD Responsible Provider: Pili Slaughter MD Anesthesia Type: MAC ASA Status: 2 Anesthesia Type: MAC Last Vitals Vitals Value Taken Time BP 124/74 09/07/21 1330 Temp 37.6 ?C (99.7 ?F) 09/07/21 1330 Pulse 64 09/07/21 1333 Resp 15 09/07/21 1333 SpO2 91 % 09/07/21 1333 Vitals shown include unvalidated device data. Post Anesthesia Patient Status Patient Evaluation: PACU. PACU/ICU Patient Condition: stable. Anticipated Disposition: phase 2 then home. Neurological Status: aware and responsive. Pulmonary Status: breathing comfortably on room air Airway Control: returned to baseline unsupported. Cardiovascular Status: stable. Pain Management: clinically adequate - multimodal analgesia pain management approach Postoperative Hydration: acceptable. Intraoperative Events: no significant anesthesia events Post Operative Nausea/Vomiting Status: no significant post operative nausea or vomiting Anesthetic Observations: Recommendation: continue current plan of care. Anesthesia Observations No Documentation SIGNATURE: Pili Slaughter MD PATIENT NAME: Yumiko Shannon DATE: September 07, 2021 TIME: 1:41 PM CSN: [id number] [facility] ANES PRE-OPon 09-07-2021 ANES PRE-OP HNO ID: [id number] Author: Pili Slaughter MD Service: Anesthesiology Author Type: Anesthesiologist Type: Anesthesia Preprocedure Evaluation Filed: 09/07/2021 11:52 AM Note Text: ANESTHESIOLOGY DAY OF SURGERY NOTE : 1970 Procedure Information Date/Time: 09/07/21 1250 Procedures: HYSTEROSCOPY, D AND C (N/A Uterus) POLYPECTOMY UTERINE (N/A Uterus) [place] Surgeons: Juan Manuel Burnett MD Estimated body mass index is 29.81 kg/m? as calculated from the following: Height as of 09/01/21: 157.5 cm (5' 2 ). Weight as of 09/01/21: 73.9 kg (163 lb). Most recent hematocrit and potassium results: Hematocrit 43.9 04/11/2016 Relevant Problems No relevant active problems I - PHYSICAL EVALUATION AIRWAY Patient intubated: No. Tracheostomy tube not present Mallampati: II. TM distance: >3 FB. Neck ROM: full ROM without neurological symptoms. Mouth opening: adequate. Short neck: no. Thick neck: no DENTAL Dental findings: teeth intact. Additional exam findings: yes. CARDIOVASCULAR Rhythm: regular PULMONARY Breath sounds clear to auscultation. II - ANESTHESIA PLAN ASA Score: 2 Anesthetic Plan: MAC The patient is not a current smoker. Monitoring plan: standard ASA. Postoperative analgesic plan: multimodal analgesia. Patient / Surrogate agrees to blood products: blood products not planned DNR status not reviewed with patient and/or family prior to surgery. Significant changes in the patient condition since the History and Physical, not otherwise documented in primary service progress note: no. Potential Anesthesia issues that may suggest increased risk of complications or contraindication to planned procedure: none. No vitals data found for the desired time range. No current facility-administered medications on file as of 09/07/2021. No current outpatient medications on file as of 09/07/2021. I have interviewed and examined the patient. I have reviewed the medical record and/or the pre-anesthesia evaluation, pertinent labs, and test results. This contains updated information obtained within 48 hours of Surgery/Procedure. SIGNATURE: Pili Slaughter MD PATIENT NAME: Yumiko Shannon DATE: September 07, 2021 TIME: 11:51 AM CSN: [id number] Normal [facility] CBC panel Auto (Bld)on 09-07 Erythrocyte distribution width (RBC) [Ratio] 12.8 % Normal 11.5-15.0 [facility] Comment on above: Order Comment: Farida brennan Type: BLOOD SPECIMEN Ordering Facility: [facility] Address: [address] [address] Performed By: #### 5 8410-2 #### [facility] CLIA [id number] [address] OF [facility] Hematocrit (Bld) [Volume fraction] 43.2 % Normal 36.0-46.0 [facility] Comment on above: Order Comment: Farida brennan Type: BLOOD SPECIMEN Ordering Facility: [facility] Address: [address] [address] Performed By: #### 5 8410-2 #### [facility] CLIA [id number] [address] Hemoglobin (Bld) [Mass/Vol] 15.4 g/dL Normal 11.5-15.5 [facility] Comment on above: Order Comment: Speci men Type: BLOOD SPECIMEN Ordering Facility: [facility] Address: [address] [place] [address] Performed By: #### 5 8410-2 #### [facility] CLIA [id number] [address] MCH (RBC) [Entitic mass] 31.6 pg Normal 26.0-34.0 [facility] Comment on above: Order Comment: Speci men Type: BLOOD SPECIMEN Ordering Facility: [facility] Address: [address] [place] [address] Performed By: #### 5 8410-2 #### [facility] CLIA [id number] [address] MCHC (RBC) [Mass/Vol] 35.6 g/dL Normal 30.5-36.0 [facility] Comment on above: Order Comment: Speci men Type: BLOOD SPECIMEN Ordering Facility: [facility] Address: [address] [place] [address] Performed By: #### 5 8410-2 #### [facility] CLIA [id number] [address] MCV (RBC) [Entitic vol] 88.5 fL Normal 80.0-100.0 [facility] Comment on above: Order Comment: Speci men Type: BLOOD SPECIMEN Ordering Facility: [facility] Address: [address] [place] [address] Performed By: #### 5 8410-2 #### [facility] CLIA [id number] [address] Nucleated RBC (Bld) [#/Vol] 10*3/uL Normal <0.01 [facility] Comment on above: Order Comment: Speci men Type: BLOOD SPECIMEN Ordering Facility: [facility] Address: [address] [place] [address] Performed By: #### 5 8410-2 #### [facility] CLIA [id number] [address] Platelet mean volume (Bld) [Entitic vol] 9.3 fL Normal 9.0-12.7 [facility] Comment on above: Order Comment: Speci men Type: BLOOD SPECIMEN Ordering Facility: [facility] Address: [address] [place] [address] Performed By: #### 5 8410-2 #### [facility] CLIA [id number] [address] OF [place] Platelets (Bld) [#/Vol] 308 10*3/uL Normal 150-400 [facility] Comment on above: Order Comment: Speci men Type: BLOOD SPECIMEN Ordering Facility: [facility] Address: [address] [place] [address] Performed By: #### 5 8410-2 #### [facility] CLIA [id number] [address] RBC (Bld) [#/Vol] 4.88 10*6/uL Normal 3.90-5.20 [facility] Comment on above: Order Comment: Speci men Type: BLOOD SPECIMEN Ordering Facility: [facility] Address: [address] [place] [address] Performed By: #### 5 8410-2 #### [facility] CLIA [id number] [address] WBC (Bld) [#/Vol] 9.98 10*3/uL Normal 3.70-11.00 [facility] Comment on above: Order Comment: Speci men Type: BLOOD SPECIMEN Ordering Facility: [facility] Address: [address] [place] [address] Performed By: #### 5 8410-2 #### [facility] CLIA [id number] [address] OPERATIVE NOon 09-07-2021 OPERATIVE NO HNO ID: [id number] Author: Juan Manuel Burnett MD Service: Gynecology Author Type: Physician Type: Operative Report Filed: 09/07/2021 12:52 PM Note Text: CLINIC MD ASSOCIATE OPERATIVE/PROCEDURE REPORT LOG ID: [id number] Surgery/Procedure Date: 09/07/2021 Incision/Procedure Start Time: 12:34 PM Incision Close/Procedure End Time: 12:44 PM Surgeon(s)/Proceduralist(s) and Junior Engineer(s): Surgeon(s) and Role: * Juan Manuel Burnett MD - Primary Informed Consent: Informed Consent obtained and on the chart Procedure: Hysteroscopy with DANDC and PAP smear Pre-Op/Pre-Procedure Diagnosis: screening for cervical cancer (PAP), thickened endometrium, pelvic pain Post-Op/Post-Procedure Diagnosis: Same as pre-op diagnosis Antibiotic: None Procedure Details: Patient was taken to the operating room where the sign-in and time out were completed. IV sedation was administered and found to be adequate. and 7 cc of vasopressin solution (20 units in 40cc) were used to inject circumferentially around the cervix. She was placed in dorsal lithotomy position with her feet in Yellowfin stirrups with careful attention not to hyperflex or hyperextend the knees or hips. SCDs were placed and turned on for DVT prophylaxis. Examination under anesthesia was performed to ascertain the position of the uterus which noted to be midposition. Patient was prepped and draped in the usual fashion. A weighted speculum was placed in the patient's vagina with clear visualization of the cervix. The anterior lip of the cervix was grasped with a single tooth tenaculum. Cervix was dilated to with Hegar dilator. A 5 mm 0-degree hysteroscope was introduced under direct visualization, and the uterus was distended with normal saline. Fluid deficit was 120 cc. The hysteroscope was then used for initial survey revealing below findings. The uterine cavity was well visualized. The fallopian tube ostia were visualized bilaterally. Findings: Endometrium: Thickened endometrium and Pseudopolypoid changes Endometrial cavity: Normal Polyps: No polyps Fibroids: No fibroids Other: None Additional techniques Include: DANDC: A curette was introduced into the uterus without difficulty. A sharp curettage was performed gently. The endometrium curettings were collected on a telfa dressing. The hysteroscope was replaced, the ragged endometrium was noted and both tubal ostia. No focal abnormalities noted All instruments were removed from vagina and uterine cavity. Sign-out was completed. Distention Media: normal saline IV Fluids: 700 Urine Output: 0 mL Estimated Blood Loss: 10 mL Specimens: Endometrial curettings Implantable Devices: None Drains: None Complications: None A digital sweep of the vaginal canal was performed by Juan Manuel Burnett MD and it was ascertained that no instruments or other foreign bodies are retained within the cavity. Sponge, lap, and needle counts were correct times two and the patient was taken to the recovery room with stable vital signs after tolerating the procedure well. I/primary surgeon/proceduralist performed the entire procedure. SIGNATURE: Juan Manuel Burnett MD PATIENT NAME: Yumiko Shannon DATE: September 07, 2021 TIME: 12:49 PM PAGER/CONTACT #: Normal [facility] PAP FLUID CERVICAL SCREENING on 09-07-2021 CASE REPORT [facility] Comment on above: Order Comment: Speci men Type: FLUID SAMPLE Ordering Facility: [facility] Address: [address] [place] [address] Result Comment: Gyne cologic Cytology Report Case: [id number] Authorizing Provider: Juan Manuel Burnett MD Collected: 09/07/2021 12:44 PM Ordering Location: [facility] Surgery Received: 09/07/2021 02:26 PM First Screen: LEIGHA Roberts [facility] Specimen: PAP CONSULTING BUSINESS DEVELOPER SCREENING, CERVICAL SCREENING FLUID Performed By: #### L [id number] #### [facility] CLIA [id number] [address] [place], [place] [address] [address] [place] CYTOLOGY INTERPRETATION PAP Normal [facility] Comment on above: Order Comment: Speci men Type: FLUID SAMPLE Ordering Facility: [facility] Address: [address] [place] [address] Result Comment: Nega tive for Intraepithelial lesion or malignancy. Performed By: #### L [id number] #### [facility] CLIA [id number] [address] [place] [address] [place] FINAL DIAGNOSIS Normal [facility] Comment on above: Order Comment: Speci men Type: FLUID SAMPLE Ordering Facility: [facility] Address: [address] [place] [address] Result Comment: A - CERVICAL SCREENING FLUID Satisfactory for interpretation Negative for Intraepithelial lesion or malignancy. Performed By: #### L [id number] #### [facility] CLIA [id number] [address] [place] [address] FINAL PERFORMING LAB [facility] Comment on above: Order Comment: Speci men Type: FLUID SAMPLE Ordering Facility: [facility] Address: [address] [place] [address] Result Comment: Tech nical component, kettle fry cook operator screening performed at [facility], [address] [place] [address] CLIA# [id number] Diagnostic interpretation performed at [facility], [address] [place] [address] CLIA# [id number] Occupational Therapy Asst: Pee Portillo M.D. Performed By: #### L [id number] #### [facility] CLIA [id number] [address] [place] [address] ORDER COMMENT screening, please ru n high risk HPV [facility] Comment on above: Order Comment: Speci men Type: FLUID SAMPLE Ordering Facility: [facility] Address: [address] [place] [address] Performed By: #### L [id number] #### [facility] CLIA [id number] [address] [place] [address] PAP DISCLAIMER COMMENT The Pap Smear is a screening test for cervical cancer. False negative results occur with all screening tests, emphasizing the need for rescreening at recommended intervals, and clinical correlation. [facility] Comment on above: Order Comment: Speci men Type: FLUID SAMPLE Ordering Facility: [facility] Address: [address] [place] [address] Performed By: #### L [id number] #### [facility] CLIA [id number] [address] [place] [address] PAP CONSULTING BUSINESS DEVELOPER COMMENT This specimen has be en analyzed by the ThinPrep Imaging System, an automated imaging and review system, which assists the laboratory in evaluating cells on ThinPrep Pap tests. Following automated imaging, selected hawk from every slide are reviewed by a kettle fry cook operator. Normal [facility] Comment on above: Order Comment: Speci men Type: FLUID SAMPLE Ordering Facility: [facility] Address: [address] [place] [address] Performed By: #### L [id number] #### [facility] CLIA [id number] [address] [place] [address] SURGICAL PATHOLOGYon 022 CASE REPORT Normal [facility] Comment on above: Order Comment: Speci men Type: TISSUE SPECIMEN Ordering Facility: [facility] Address: [address] [place] [address] Result Comment: Surg [facility] Pathology Report Case: [id number] Authorizing Provider: Juan Manuel Burnett MD Collected: 09/07/2021 12:40 PM Ordering Location: [facility] Surgery Received: 09/07/2021 02:13 PM Pathologist: Sintia Phan MD Specimen: ENDOMETRIUM CURETTINGS Performed By: #### S #### [facility] CLIA [id number] [address] [place] [address] FINAL DIAGNOSIS Normal [facility] Comment on above: Order Comment: Speci men Type: TISSUE SPECIMEN Ordering Facility: [facility] Address: [address] [place] [address] Result Comment: Endo metrium, curettage - Focally polypoid benign endometrial tissue with degenerative changes and focal breakdown. - Endocervical and squamous mucosa with inflammation and reactive changes. Performed By: #### S #### [facility] CLIA [id number] [address] [place] [address] FINAL PERFORMING LAB Normal [facility] Comment on above: Order Comment: Speci men Type: TISSUE SPECIMEN Ordering Facility: [facility] Address: [address] [place] [address] Result Comment: Diag nostic interpretation performed at [facility], [address] [place] [address] CLIA# [id number] Occupational Therapy Asst: Pee Portillo M.D. Performed By: #### S #### [facility] CLIA [id number] [address] [place] [address] GROSS DESCRIPTION [facility] Comment on above: Order Comment: Speci men Type: TISSUE SPECIMEN Ordering Facility: [facility] Address: [address] [place] [address] Result Comment: A. E NDOMETRIUM CURETTINGS. Received in formalin on [facility] are multiple robertson-red, soft feathery segments of tissue admixed with gelatinous material aggregating to 2.5 x 2.0 x 0.1 cm. Totally submitted in one cassette. JTS September 07, 2021 6:18 PM Gross examination performed at [facility], [address] [place] [address] Performed By: #### S #### [facility] CLIA [id number] [address] [place] [address] OF [place] HISTORY PHYSICALon HISTORY PHYSICAL HNO ID: [id number] Author: Isha Shabazz APRN.INVENTORY TRANSCRIBER Service: ? Author Type: Nurse Practitioner Type: HANDP Filed: 09/01/2021 7:19 AM Note Text: PREANESTHESIA CONSULT CLINIC TELEHEALTH VISIT Patient has been identified by name and date of : Yes This is a virtual visit using [employer] video visit. It require patient-provider interaction for the medical decision making as documented below. Reason for contact: PACC visit Accompanied by: Self Scheduled Surgery: HYSTEROSCOPY, D AND C and POLYPECTOMY UTERINE Subjective CHIEF COMPLAINT: Patient presents with: Pre-Op Visit HPI: 50 year old female with history of thickened endometrium. Now to have HYSTEROSCOPY, D AND C and POLYPECTOMY UTERINE Pt takes Ibuprofen and Tylenol for pain with some relief. She states menopause age 41. She denies nausea, vomiting, fevers or chills. ACTIVE PROBLEM LIST Elevated Prolactin Level Abnormal Uterine Bleeding PAST MEDICAL HISTORY Diagnosis Date - Acute cholecystitis Gall Bladder Pain - Migraines PAST SURGICAL HISTORY Procedure Laterality Date - CHOLECYSTECTOMY 05/25/2016 FAMILY HISTORY Problem Relation Age of Onset - Diabetes Mother - Heart Mother CHF - Kidney Disease Mother Kidney Failure - Osteoporosis Mother - Hypertension Mother - other (Hypoglycemia) Sister - Blood Disease Brother Bleeder - Heart Brother Enlarged Heart Social History Tobacco Use - Smoking status: Never Smoker - Smokeless tobacco: Never Used Substance Use Topics - Alcohol use: No - Drug use: No ALLERGIES No Known Allergies MEDICATIONS: Current Outpatient Medications Medication Sig - Multivitamin capsule Take 1 capsule by mouth once daily. - ibuprofen (MOTRIN) 200 mg tablet Take 200 mg by mouth every 6 hours as needed. - acetaminophen (TYLENOL EXTRA STRENGTH) 500 mg tablet Take 1,000 mg by mouth every 6 hours as needed. No current facility-administered medications for this visit. COVID VACCINATION STATUS: Not vaccinated REVIEW OF SYSTEMS: Pain Assessment: General: No weight loss, malaise or fevers. Neuro: No history of TIA's, stroke, CORE MACHINE OPERATOR tumor, impaired sensorium, hemiplegia, paraplegia or quadraplegia. No neurological symptoms or problems. Respiratory: No history of current cough or dyspnea, or pneumonia in the past 6 weeks. No history of respiratory/pulmonary symptoms or problems. Cardiovascular: No history of HTN requiring medication, no history of angina, CHF, TN, cardiac surgery or stents. Denies rest pain, gangrene or revascularization/amputation for PVD. No history of cardiovascular symptoms or problems. GI: No history of GI symptoms or problems. No history of esophageal varices, recent ascites, or ETOH greater than 2 drinks per day. : No history of dysuria, frequency or incontinence,, stones or chronic kidney disease CLINIC MD ASSOCIATE: See HPI : LMP, No LMP recorded (lmp unknown). Patient is postmenopausal. Endocrine: No history of diabetes. Has not taken steroids within the past 30 days. No history of endocrinological symptoms or problems. Hematology: No history of bleeding or clotting disorder. Pt is not taking anti-coagulation or platelet medications. No history of hematological symptoms or problems. Oncology: No history of CA metastasis, chemo within 30 days, or radiotherapy within 90 days. Has not lost 10% of body wt in 6 months. No history of oncological symptoms or problems. Psych: No history of psychiatric symptoms or problems. Musculoskeletal: Negative for joint pain or swelling, back pain or muscle pain. Skin: Negative for lesions, rash and itching. Objective PHYSICAL EXAM: Ht 5' 2 (1.58m) Wt 163 lb (73.9kg) BMI 29.81 kg/(m2). VIDEO EXAM: (if completed, performed via video enabled technology) GENERAL: alert and appropriate, in no distress, well-hydrated, well nourished and happy, smiling, interactive SKIN: no rash noted HEAD: normocephalic, no abnormality or lesion noted EYES: no injection and visual acuity is grossly normal EARS: external ears normal, no mastoid tenderness NOSE: external nose normal without rhinorrhea OROPHARYNX: moist mucus membranes, no tonsillar hypertrophy/exudate, uvula midline and pharynx non-erythematous, lips, teeth and gums are without obvious lesion NECK: full ROM, no cervical LNs noted RESPIRATORY: breathing non-labored and no grunting/flaring/retractions CHEST: equal chest rise with normal respiratory effort HEART: Pt denies palpitations ABDOMEN: soft and tender to pt palpation lower abdomen EXTREMITIES: no reported LE edema per pt NEUROLOGIC: no obvious deficit Diagnostic tests reviewed for today's visit: Lab Value Units Date High Low HB No results within date range. HCT No results within date range. WBC No results within date range. PLT No results within date range. NA No results within date range. K No results within date range. GLUC No results within bar (more content not included)... Normal [facility] 08-21-2021 CNPN Telephone (OBGYWM) YUMIKO SHANNON ([id number]) 1970 F Date Time Provider Department 08/21/21 JUAN MANUEL BURNETT During your visit today, we recorded the following information about you: Michael Reed LPN 08/21/2021 3:28 PM Addendum Patient is scheduled 09/07/2021 at [place]. Please approve surgical order. Patient is self-pay. Juan Manuel Burnett MD 08/21/2021 4:10 PM Signed completed. Thanks. Juan Manuel Burnett MD Allergies As of Date: 08/21/2021 (No Known Allergies) Date Reviewed: 08/18/2021 Reviewed by: Juan Manuel Burnett MD - Fully Assessed Reason for Visit: Orders [681] Primary Visit Diagnosis:Thickened endometrium [R93.89] Other Visit Diagnosis:Pelvic pain in female [R10.2] Order(s):SURGICAL REQUEST - ELECTIVE (01/2020) [[id number]] Order #: [id number]: 1 Prescriptions as of 08/28/2021 - ondansetron orally disintegrating (ZOFRAN ODT) 4 mg disintegrating tablet Take 1 tablet by mouth every 8 hours as needed. Problem List As Of Date 08/21/2021 Noted Resolved Elevated prolactin level (HCC) [R79.89] 04/16/2016 Abnormal uterine bleeding [N93.9] 04/18/2016 Encounter Status:Closed by MICHAEL REED LPN on 08/28/21 [facility]14[facility] YUMIKO SHANN[facility] ([id number]) 1970 F Date Time Provider Department 08/14/21 CONNIE BLANKENSHIP OBHEBERT During your visit today, we recorded the following information about you: Leslie Mcpherson RN 08/14/2021 1:17 PM Signed Patient states that since her EMB she has not been feeling well. Having stomach pains. She can barely eat and when she eats too much she feels nauseated and vomiting at times. Denies pelvic pain, fever, abnormal vaginal discharge. States she will feel chilled at times, but she thinks that's because she isn't eating well. Inquired if patient has discussed her symptoms with her PCP. She has not because her symptoms started after her biopsy. Moved her visit up to talk with RR about surgery to this Saturday. Asking for RM to call her before 4 PM today. If not, to call her tomorrow. Leslie Blankenship APRN.ANTONINO 08/15/2021 9:35 AM Signed Spoke with pt and sent Zofran sent in from. Connie Blankenship APRN.CNP Allergies As of Date: 08/14/2021 (No Known Allergies) Date Reviewed: 08/04/2021 Reviewed by: Piper Monroe LPN - Fully Assessed Reason for Visit: Patient Update [1234] Order(s):ondansetron orally disintegrating (ZOFRAN ODT) 4 mg disintegrating tabletTake 1 tablet by mouth every 8 hours as needed.Disp: 20 tabletRfl: 0 Prescriptions as of 08/15/2021 - ondansetron orally disintegrating (ZOFRAN ODT) 4 mg disintegrating tablet Take 1 tablet by mouth every 8 hours as needed. - miSOPROStol (CYTOTEC) 200 mcg tablet Use 2 tablets vaginally as directed. The night before the procedure and the morning of the procedure. Problem List As Of Date 08/14/2021 Noted Resolved Elevated prolactin level (HCC) [R79.89] 04/16/2016 Abnormal uterine bleeding [N93.9] 04/18/2016 Prescriptions ordered this encounter Disp Refills Start End ONDANSETRON 4 MG DISINTEGRATING TABL* 20 t* 0 08/15/2021 Route: ORAL Sig: Take 1 tablet by mouth every 8 hours as needed. Encounter Status:Closed by CONNIE BLANKENSHIP on 08/15/21 [facility] 08-10-2021 GARCIA Telephone (OBGYWM) YUMIKO SHANNON ([id number]) 1970 F Date Time Provider Department 08/10/21 RUSTY TORREZ During your visit today, we recorded the following information about you: Michael Reed LPN 08/10/2021 3:43 PM Signed Patient had appointment w/ RM and EMB was attempted on 08/04/2021. Patient states that since the procedure she has experienced a sharp, burning pain in her lower abdomen that last most of each day and vaginal bleeding that was like a moderate menses that slowed to just spotting today. Patient also reports that eating solids foods cause an burning sensation in her stomach. Patient has not taken NSAIDS for the pain AND Denies vaginal odor, no fevers. told patient that she will need a hysteroscopy [facility] and surgery will need to be done at [place] d/t patient having [facility] assistance. Rusty Rehman MD 08/10/2021 4:19 PM Signed Noted, she can be scheduled with any provider that is going to [place] that has an opening for surgery. Use heating pad and take motrin for pain. Juan Manuel Burnett MD 08/11/2021 3:48 PM Signed NSAIDs, tylenol and heat. [place] for surgery consult. can be virtual. Thanks. MD Michael Arriaza LPN 08/11/2021 4:36 PM Signed Patient scheduled for virtual visit to discuss Allergies As of Date: 08/10/2021 (No Known Allergies) Date Reviewed: 08/04/2021 Reviewed by: Piper Monroe LPN - Fully Assessed Reason for Visit: Patient Update [1234] Prescriptions as of 08/11/2021 - miSOPROStol (CYTOTEC) 200 mcg tablet Use 2 tablets vaginally as directed. The night before the procedure and the morning of the procedure. Problem List As Of Date 08/10/2021 Noted Resolved Elevated prolactin level (HCC) [R79.89] 04/16/2016 Abnormal uterine bleeding [N93.9] 04/18/2016 Encounter Status:Closed by MICHAEL REED LPN on 08/11/21 [facility] CNOVon 08-04-2021 CNOV Office Visit (OBGYWM ) YUMIKO SHANNON ([id number]) 1970 F Date Time Provider Department 08/04/21 11:00 AM CONNIE BLANKENSHIP OBGYWM During your visit today, we recorded the following information about you: Blood pressure Weight 128/68 77 kg Connie Blankenship APRN.CNP 08/04/2021 12:06 PM Signed Yumiko is a 50 year old who presents today for an endometrial biopsy for thickening of endometrial lining. test: negative UNIVERSAL PROTOCOL / SAFETY CHECKLIST Procedure to be Performed: EMB Sign In: A Moment of CARE was completed. Personnel directly involved with the procedure wore the appropriate PPE (Personal Protective Equipment). Patient/Surrogate Stated/Verified: PATIENT VERIFIED(optional for EMERGENT procedures): Patient name, Date of , Relevant allergies and The intended procedure Time Out Communication: Intended patient and procedure match the source documents. Consent documented and matches the intended procedure. Sign Out: SIGN OUT (optional for EMERGENT procedures): No specimen collected. All instruments, equipment, possible retained foreign bodies accounted for. PROCEDURE: EXTERNAL GENITALIA: Normal in appearance without lesions VAGINA: Normal in appearance without lesions BIOPSY: Speculum placed into the vagina with excellent visualization of the cervix. Cervix cleaned with betadine. Anterior lip of cervix grasped with single toothed tenaculum. Unable to pass through the cervix even with dilation. Procedure Summary: Patient tolerated procedure well. ASSESSMENT: thickening of endometrial lining PLAN: Post-procedure instructions reviewed and written material given to the patient. Will notify pt of care plan after consulting in doctor. Connie Blankenship APRN.INVENTORY TRANSCRIBER *spoke with Dr Hou recommendation is for a hysteroscopy [facility] Pt aware of recommendation with that the office will in contact with her to schedule. Piper Monroe LPN 08/04/2021 11:07 AM Signed YOUR RECOVERY After your biopsy you may have: ? Vaginal bleeding (less than a normal menstrual period) ? Mild cramping Do NOT put anything in the vagina for 1 week after your endometrial biopsy. This includes: ? tampons ? douches ? and refraining from having sexual intercourse If you have any discomfort, you may take an over the counter pain medication (motrin, advil, ibuprofen, tylenol, etc). If this does not relieve your discomfort, contact the office. It is okay to wear a sanitary pad until the discharge and spotting stops. RISKS Although problems seldom occur with endometrial biopsies, there can be some complications. You may feel faint during and shortly after the procedure as well as have some bleeding after the procedure. There is also a risk of infection after the procedure. These complications are rare and can be easily treated. You should contact you doctor is you have any of the following: ? Heavy bleeding (more than your normal period) ? Bleeding with clots ? Severe abdominal pain ? Fever (more than 100.4F) ? Foul smelling vaginal discharge RESULTS We will have the results of your biopsy in 1-2 weeks. If you do not hear the results of your biopsy after 2 weeks, please contact the office for the results. If you have any additional questions or concerns please do not hesitate to contact the office. Referring Provider: CONNIE BLANKENSHIP [[id number]] Allergies As of Date: 08/04/2021 (No Known Allergies) Date Reviewed: 08/04/2021 Reviewed by: Piper Monroe LPN - Fully Assessed Reason for Visit: Endometrial Biopsy [7501] Primary Visit Diagnosis:Pre-procedure lab exam [Z01.812] Other Visit Diagnosis:Thickened endometrium [R93.89] Order(s):HCG QUAL UR B/O [[id number]] Order #: [id number] Prescriptions as of 08/04/2021 - miSOPROStol (CYTOTEC) 200 mcg tablet Use 2 tablets vaginally as directed. The night before the procedure and the morning of the procedure. Problem List As Of Date 08/04/2021 Noted Resolved Elevated prolactin level (HCC) [R79.89] 04/16/2016 Abnormal uterine bleeding [N93.9] 04/18/2016 Other instructions from your clinician: YOUR RECOVERY After your biopsy you may have: ? Vaginal bleeding (less than a normal menstrual period) ? Mild cramping Do NOT put anything in the vagina for 1 week after your endometrial biopsy. This includes: ? tampons ? douches ? and refraining from having sexual intercourse If you have any discomfort, you may take an over the counter pain medication (motrin, advil, ibuprofen, tylenol, etc). If this does not relieve your discomfort, contact the office. It is okay to wear a sanitary pad until the discharge and spotting stops. RISKS Although problems seldom occur with endometrial biopsies, there can be some complications. You may feel faint during and shortly after the procedure as well as have some bleeding after the proced (more content not included)... Normal [facility] 07-31-2021 AGRCIA Telephone (OBGYWM) YUMIKO SHANNON ([id number]) 1970 F Date Time Provider Department 07/31/21 CONNIE BLANKENSHIP During your visit today, we recorded the following information about you: Connie Blankenship APRN.CNP 07/31/2021 10:39 AM Signed Please let the pt know that her US shows a small fibroid and a thick endometrial lining. She will need to have an EMB done please schedule her w/ me, I will also send in cytotec for her please review how to use the medication. Connie Blankenship APRN.ANTONINO Posadas RN 07/31/2021 10:52 AM Signed Patient notified of results, verbalizes understanding of instructions. EMB appointment scheduled. Please file pended order. Marcela Posadas RN Allergies As of Date: 07/31/2021 (No Known Allergies) Date Reviewed: 07/20/2021 Reviewed by: Elis Ding MA - Fully Assessed Reason for Visit: Results [95] Primary Visit Diagnosis:Endometrial thickening on ultrasound [R93.89] Order(s):miSOPROStol (CYTOTEC) 200 mcg tabletUse 2 tablets vaginally as directed. The night before the procedure and the morning of the procedure.Disp: 4 tabletRfl: 0 ENDOMETRIAL BIOPSY [[id number]] Order #: [id number] Prescriptions as of 07/31/2021 - miSOPROStol (CYTOTEC) 200 mcg tablet Use 2 tablets vaginally as directed. The night before the procedure and the morning of the procedure. Problem List As Of Date 07/31/2021 Noted Resolved Elevated prolactin level (HCC) [R79.89] 04/16/2016 Abnormal uterine bleeding [N93.9] 04/18/2016 Prescriptions ordered this encounter Disp Refills Start End MISOPROSTOL 200 MCG TABLET 4 ta* 0 07/31/2021 Route: VAGINAL Sig: Use 2 tablets vaginally as directed. The night before the procedure and the morning of the procedure. Encounter Status:Closed by CONNIE BLANKENSHIP on 07/31/21 [facility] 07-24-2021 GARCIA Telephone (OBGYWM) YUMIKO SHANNON ([id number]) 1970 F Date Time Provider Department 07/24/21 CONNIE BLANKENSHIP During your visit today, we recorded the following information about you: Connie Blankenship APRN.CNP 07/24/2021 8:45 AM Signed Spoke with pt regarding lab results. Please contact her to schedule US. HANNAH Albrecht RN 07/24/2021 9:11 AM Signed PSS- Please contact patient to assist with scheduling a pelvic ultrasound. Insurance Coverage: None. Thank you. Leslie Muhammad 07/24/2021 1:29 PM Signed Patient scheduled 07/28/21 for Pelvic Ultrasound Anne Muhammad Allergies As of Date: 07/24/2021 (No Known Allergies) Date Reviewed: 07/20/2021 Reviewed by: Elis Ding MA - Fully Assessed Reason for Visit: Results [95] Primary Visit Diagnosis:Amenorrhea [N91.2] Order(s):PELVIC US WHI [[id number]] Order #: [id number]: 1 Problem List As Of Date 07/24/2021 Noted Resolved Elevated prolactin level (HCC) [R79.89] 04/16/2016 Abnormal uterine bleeding [N93.9] 04/18/2016 Encounter Status:Closed by MARTHA HUSSEIN RN on 07/25/21 [facility] CNOVon 07-20-2021 CNOV Office Visit (OBGYWM ) YUMIKO SHANNON ([id number]) 1970 F Date Time Provider Department 07/20/21 4:00 PM CONNIE BLANKENSHIP OBGYWM During your visit today, we recorded the following information about you: Blood pressure Weight 110/78 78.1 kg Connie Blankenship APRN.INVENTORY TRANSCRIBER 07/20/2021 4:24 PM Signed Yumiko Shannon is a 50 year old female who presents for problem visit hormone issues. HPI: she states that her menses stopped about 2 yrs ago. She states that she is having trouble with bloating, just fells awful, larger amount of clear vaginal discharge, and restless nights. Did have hot flashes but those are now gone. Never sexually active. OB History T0 L0 SAB0 IAB0 Ectopic0 Multiple0 Live Births0 [place] History LMP: LMP Unknown, Having periods Age at Menarche: Age at First : Age at Menopause: [place] History Comments: Sexual Activity: Never; No partner data on record Contraception: No contraception data on record PAST MEDICAL HISTORY Diagnosis Date - Acute cholecystitis Gall Bladder Pain - Migraines PAST SURGICAL HISTORY Procedure Laterality Date - CHOLECYSTECTOMY 05/25/2016 FAMILY HISTORY Problem Relation Age of Onset - Diabetes Mother - Heart Mother CHF - Kidney Disease Mother Kidney Failure - Osteoporosis Mother - Hypertension Mother - other (Hypoglycemia) Sister - Blood Disease Brother Bleeder - Heart Brother Enlarged Heart Social History Tobacco Use - Smoking status: Never Smoker - Smokeless tobacco: Never Used Substance Use Topics - Alcohol use: No - Drug use: No Current Outpatient Medications Medication Sig - medroxyPROGESTERone (PROVERA) 10 mg tablet If no period for 2 months take once daily for 5 days to induce a period. (Patient not taking: Reported on 02/12/2019 ) - oxyCODONE-acetaminophen (PERCOCET) 5-325 mg tablet Take 1-2 tablets by mouth every 4 hours as needed. (Patient not taking: Reported on 02/12/2019 ) - Multivitamin capsule Take 1 capsule by mouth once daily. - Magnesium 30 mg tablet Take 30 mg by mouth twice daily. - amino acids-rice qgqwzec-xz-an (K-PAX IMMUNE BOOSTER) 24 gram-240 kcal/65 gram powd Take by mouth. - ASPIRIN/ACETAMINOPHEN/CAFFEI NE (EXCEDRIN EXTRA STRENGTH ORAL) Take by mouth. No current facility-administered medications for this visit. Allergies As of Date: 07/20/2021 (No Known Allergies) Fully Assessed 07/20/2021 REVIEW OF SYSTEMS Bladder: No dysuria, gross hematuria, urinary frequency, urinary urgency, or incontinence. Expanded ROS: N/A Allergies and current medication updated:Yes EXAM: BP 110/78 Wt 172 lb 3.2 oz (78.1kg) GENERAL: pleasant, female in no apparent distress HEENT: Normocephalic, atraumatic, mucus membranes moist and no lesions CHEST: Normal inspiratory effort NEURO: alert and oriented x3,exam grossly non-focal ASSESSMENT/PLAN: 1. Amenorrhea - ICD9: 626.0, ICD10: N91.2 (primary diagnosis) - FSH BLD - ESTRADIOL-17B BLD - TSH BLD 2. Bloating - ICD9: 787.3, ICD10: R14.0 - CA 125 BLD Connie Blankenship APRN.ANTONINO Medical Decision Making: Problems: Moderate: New problem with uncertain prognosis Data: Unique test(s) ordered: 3+ Risk: Low: Low risk from testing/treatment Medical Decision Making Level: 4 - Moderate Referring Provider: SELF [200] Allergies As of Date: 07/20/2021 (No Known Allergies) Date Reviewed: 07/20/2021 Reviewed by: Elis Ding MA - Fully Assessed Reason for Visit: Follow Up [171] Cmt: hormonal concerns Primary Visit Diagnosis:Amenorrhea [N91.2] Other Visit Diagnosis:Bloating [R14.0] Order(s):FSH BLD [SQFSH] Order #: [id number] FUTURE ESTRADIOL-17B BLD [SQE2] Order #: [id number] FUTURE TSH BLD [SQTSH] Order #: [id number] FUTURE CA 125 BLD [NSRL741] Order #: [id number] FUTURE Problem List As Of Date 07/20/2021 Noted Resolved Elevated prolactin level (HCC) [R79.89] 04/16/2016 Abnormal uterine bleeding [N93.9] 04/18/2016 Medications Discontinued During This Encounter Prescriptions - medroxyPROGESTERone (PROVERA) 10 mg tablet (Discontinued) Reported on 02/12/2019 - amino acids-rice cwmebqh-vv-xl (K-PAX IMMUNE BOOSTER) 24 gram-240 kcal/65 gram powd (Discontinued) Take by mouth. - ASPIRIN/ACETAMINOPHEN/CAFFEI NE (EXCEDRIN EXTRA STRENGTH ORAL) (Discontinued) Take by mouth. - Multivitamin capsule (Discontinued) Take 1 capsule by mouth once daily. - oxyCODONE-acetaminophen (PERCOCET) 5-325 mg tablet (Discontinued) Reported on 02/12/2019 - Magnesium 30 mg tablet (Discontinued) Take 30 mg by mouth twice daily. Encounter Status:Closed by CONNIE BLANKENSHIP on 07/20/21 Normal [facility] Estradiol-17Bon 07-20-2021 Estradiol-17B 323 pg/mL Normal [facility] Comment on above: Result Comment: This test is not suitable for patients receiving treatment with the drug Fulvestrant (Faslodex). The drug causes an interference leading to falsely elevated estradiol results. Menstrual cycle Estradiol reference ranges: Follicular : < 234 pg/mL Ovulation : 41 to 398 pg/mL Luteal : < 342 pg/mL Estradiol reference ranges vary by gestational period: First trimester : 154 to 3243 pg/mL Second trimester : 1561 TO 92478 pg/mL Third trimester : 8285 to >90965 pg/mL Post-menopausal Estradiol reference range: < 41 pg/mL Reference: 1. Estradiol - E2 (Estradiol III) [package insert V 3.0 [place]]. [facility], [place], [place], November 2015. Performed By: #### E 2, FSH, TSH ####[facility] [place], [place] [phone] FSHon 07-20-2021 FSH 7.8 mU/mL Normal [facility] Comment on above: Result Comment: Refe rence range: Follicular: 3.5-12.5 Midcycle : 4.7-21.5 Luteal : 1.7- 7.7 Post Menopause: 25.8-134.8 Performed By: #### E 2, FSH, TSH ####[facility] [place], [place] [phone] TSHon 07-20-2021 TSH Qn 1.160 m[IU]/L Normal 0.270-4.200 [facility] Comment on above: Result Comment: If t he patient is , TSH reference range varies by gestational period: First Trimester (weeks 9-12): 0.180-2.990 mcIU/mL Second Trimester: 0.110-3.980 mcIU/mL Third Trimester: 0.480-4.710 mcIU/mL Abimael Quiroz et al. A Practical Approach for the Verifications and Determination of Site- and Trimester-Specific Reference Intervals for Thyroid Function tests in . Thyroid, 2019:29:3:412-420. Phani Marie, et al. 2017 Guidelines of the [place] Thy[employer] for the Diagnosis and Management of Thyroid Disease during and the . Thyroid, 2017:27:3:315-389. Performed By: #### E 2, FSH, TSH ####[facility], [place] [phone] Vital Signs Date Time Vital Sign Value Performing Clinician Sveta roach 09-15-2021 09:45-0400 Body temperature 97.59 [degF] Cassy Ley MD Work Phone: [facility] 09-15-2021 09:45-0400 Body weight 76.2 kg Cassy Ley MD Work Phone: [facility] 09-15-2021 09:45-0400 Diastolic blood pressure 72 mm[Hg] Cassy Ley MD Work Phone: [facility] 09-15-2021 09:45-0400 Systolic blood pressure 112 mm[Hg] Cassy Ley MD Work Phone: [facility] 09-12-2021 14:48-0400 Body temperature 98.1 [degF] Cassy Ley MD Work Phone: [facility] 09-12-2021 14:48-0400 Body weight 76.3 kg Cassy Ley MD Work Phone: [facility] Encounters Encounter Date Encounter Type Care Provider Facility Start: 02-17-2022 End: 02-17-2022 Emergency department patient visit DR ALEX DE LOS SANTOS [facility] Start: 10-11-2021 Telephone encounter Issa sharma MD Work Phone: Gynecology Comment on above: Results Start: 10-10-2021 ambulatory Issa Hilliard MD Work Phone: Gynecology Comment on above: test results Start: 10-09-2021 End: 10-09-2021 Subsequent hospital visit by physician Leigha Boyle Work Phone: Radiology Comment on above: Acute abdomen [R10.0 ] Start: 10-05-2021 ambulatory Issa Hilliard MD Work Phone: Gynecology Comment on above: test results Start: 10-05-2021 Telephone encounter Issa sharma MD Work Phone: [facility] Comment on above: Results Start: 10-02-2021 End: 10-02-2021 ambulatory Issa Hilliard MD Work Phone: Gynecology Comment on above: Thickened endometriu m (Primary Dx); Abdominal pain, unspecified abdominal location; History of hysteroscopy; Acute abdomen; Nausea Start: 10-02-2021 End: 10-02-2021 Telemedicine consultation with patient Issa Hilliard MD Work Phone: [facility] Start: 09-28-2021 Admission to [facility] Juan Manuel Burnett MD Work Phone: OB/Gynecology Comment on above: surgery questions Start: 09-28-2021 ambulatory Juan Manuel martníez MD Work Phone: [facility] Start: 09-15-2021 End: 09-15-2021 Patient encounter procedure Cassy Ley MD Work Phone: OB/Gynecology Comment on above: Decreased appetite ( Primary Dx); Generalized abdominal pain Start: 09-14-2021 Telephone encounter Marcela strong MD Work Phone: Obstetrics/Gynecology Comment on above: Nurse Triage Call Abdominal Pain Start: 09-12-2021 End: 09-12-2021 Patient encounter procedure Cassy Ley MD Work Phone: OB/Gynecology Comment on above: Postoperative infect ion, unspecified type, initial encounter (Primary Dx) Start: 09-12-2021 Telephone encounter Juan Manuel Burnett MD Work Phone: OB/Gynecology Comment on above: Lab Orders Procedures Date Procedure Procedure Detail Performing Clinician Start: 10-09-2021 Ct abdomen & pelvis w/contrast material Issa Hilliard MD Work Phone: Start: 09-12-2021 Urnls dip stick/tabl et rgnt auto w/o microscopy Cassy Ley MD Work Phone: Start: 02-12-2019 Mammography Juan Manuel lopez MD Work Phone: Plan of Treatment Date Care Activity Detail Author Start: 09-13-2026 HPV TESTING HPV TESTING [facility] Start: 09-07-2026 PAP TESTING PAP TESTING [facility] Start: 02-22-2022 Influenza vaccination INFLUENZ A (Season Ended) [facility] Start: 04-11-2021 HPV TESTING HPV TESTING [facility] Start: 04-11-2021 PAP TESTING PAP TESTING [facility] Start: 02-22-2021 Influenza vaccination INFLUENZA (#1) [facility] Start: 02-13-2020 Mammography MAMMOGRAM [facility] Start: 2017 COLOGUARD (FIT-DNA) COLOGUARD (FIT-D NA) [facility] Start: 2017 Colonoscopy COLONOSCOPY [facility] Start: 2017 COLORECTAL CANCER SCREENING COLORECTAL CANCER SCREENING [facility] Start: [address] COLONOGRAPHY [facility] Start: 2017 DIABETES SCREEN DIABETES SCREEN [facility] Start: 2017 FECAL OCCULT BLOOD FECAL OCCULT BLOO D [facility] Start: 2017 LIPID SCREEN LIPID SCREEN [facility] Start: 2017 SIGMOIDOSCOPY SIGMOIDOSCOPY [facility] Start: 11-03-1991 Urine microalbumin profile DTAP,TDAP,TD (1 - Tdap) [facility] Start: 1990 HEPATITIS C SCREENING HEPATITIS C SC REENING [facility] Start: 1990 HIV SCREENING HIV SCREENING [facility] Start: 1984 Adult depression screening assessment DEPRESSION SCREENING [facility] Start: 1977 COVID-19 VACCINE (1) COVID-19 VACCIN E (1) [facility] End: 11-01-2022 Ct abdomen & pelvis w/contrast material CT ABD/PEL W IVCON Radiology Routine Acute abdomen Nausea 1 Occurrences starting 10/02/2021 until 11/01/2022 [facility] Work Phone: Comment on above: 1 Occurrences starti ng 10/02/2021 until 11/01/2022 PAP FLUID CERVICAL SCREENING PAP FLUID CERVICAL SCREENING Lab Routine Cervical high risk HPV (human papillomavirus) test positive Ordered: 09/12/2021 [facility] Work Phone: Comment on above: Ordered: 09/12/2021 [facility] Payers Date Payer Category Payer Unknown [id number] Unknown [id number] Social History Date Type Detail Facility Start: 04-11-2016 Tobacco smoking stat us NHIS Never smoked tobacco [facility] Work Phone: Start: 04-11-2016 Tobacco use and exposure Smokeless tobacco non-user [facility] Work Phone: Start: 09-12-2021 End: 09-15-2021 Alcohol intake Current non-drinker of alcohol (finding) [facility] Start: 1970 Sex Assigned At Not on file C [facility] Start: 08-28-2021 End: 10-09-2021 Exposure to SARS-CoV-2 (event) Not sure [facility] Clinical Notes 07-20-2021 to 10-11-2021 Telephone Encounter - Issa Hilliard MD - 10/11/2021 9:01 AM Colt Hussein RT(R) - 10/09/2021 3:15 PM Aurelia Anthony RN - 10/09/2021 3:15 PM Annemarie Hilliard MD - 10/02/2021 3:30 PM EDT Note Date & Type Note Facility 10-11-2021 Miscellaneous Notes Gynecology Telephone Encounter 50 year old with abdominal discomfort, thickened endometrium s/p hysteroscopy showing benign pathology. #Thickened endometrium: patient with 10-year history of bleeding 1-2x per year, with recent FSH and E2 consistent with premenopausal state. She presented with vaginal discharge 06/2021 and had pelvic ultrasound that showed 1.6cm endometrial stripe. Hysteroscopy 09/07 showed thickened endometrium and blind curettage sampling showed focally polypoid endometrial tissue with degenerative changes. Patient reports abdominal pain since hysteroscopy with accompanying decreased appetite, night sweats and 9 lb weight loss in the past month. It is possible that patient has uterine or other malignancy, and entire endometrial cavity may not have been sampled secondary to blind endometrial sampling. DDx also includes malignancy of unknown source vs. Postoperative sequelae. --CA 125 ordered but never drawn, encouraged patient to have this drawn --> CA 125 normal at 17 --CT A/P ordered --> no acute pathology in abdomen or pelvis, diverticulosis noted, left nephrolithiasis without obstructive uropathy, small fibroid uterus (maximum fibroid size 3cm) --Consider repeat hysteroscopy with visually directed sampling --Patient to keep GI appointment on October 24 --Follow up pending the above results, consider [facility] referral if concerning findings. I called and spoke with patient about negative CT scan findings and normal CA 125. Given benign findings, suspect her symptoms of abdominal pain likely GI in etiology. Recommend patient follow up with GI for scheduled appointment on 10/24 and then reach out if ongoing abdominal pain or any new bleeding. At that time, we could consider repeat endometrial sampling given that first biopsy was blind D&C. Issa Hilliard MD Clinical Fellow PGY-6 Minimally Invasive Gynecologic Surgery Department of Obstetrics and Gynecology [place], [place] 10/11/21 documented in this encounter [facility] 10-09-2021 Note HNO ID: [id number] Author: Lina Anthony RN Service: Nursing Author Type: Registered Nurse Type: Progress Notes Filed: 10/09/2021 1:54 PM Note Text: Radiology Service Progress Note DATE OF SERVICE: October 09, 2021 TIME: 1:44 PM PATIENT WEIGHT: 163LBS PATIENT IDENTITY VERIFICATION COMPLETED USING TWO (2) STANDARD IDENTIFIERS: Name and Date of confirmed by patient verbally and Name and Date of confirmed by identification band. FALL SCREENING: Has the patient had 2 falls in the last year or 1 fall with injury or currently using an Ambulatory Assistive Device (Walker, Cane, Wheelchair, Crutches, etc.)? No PATIENT GENDER DATA: Female. status: : No status: NO. ALLERGIES: Reviewed and unchanged CONTRAST ALLERGY: No EXAM: CT -CONTRAST INDUCED NEPHROPATHY RISK FACTORS: Not applicable CREATININE: No results found for: CREAT, EGFROTH, EGFRAA P.O.C.T. RESULTS: N/A October 09, 2021 TREATMENT: N/A IV SITE: Ambulatory: A peripheral IV was started in the Left antecubital site with a Angio cath: 22 gauge. and A Saline lock was inserted per protocol IV SITE APPEARANCE: Clean,Dry and Intact SIGNATURE: Lina Anthony RN PATIENT NAME: Yumiko Shannon DATE: October 09, 2021 TIME: 1:44 PM [facility] 10-09-2021 Note HNO ID: [id number] Author: Shaheen Hussein, RT(R) Service: Radiology Author Type: Technologist Type: Progress Notes Filed: 10/09/2021 2:19 PM Note Text: Radiology Service Progress Note PATIENT NAME: Yumiko Shannon DATE OF SERVICE: October 09, 2021 TIME: 2:12 PM PATIENT IDENTITY VERIFICATION COMPLETED USING TWO (2) IDENTIFIERS: Name and Date of confirmed by patient verbally and Name and Date of confirmed by identification band. FALL SCREENING: Has the patient had 2 falls in the last year or 1 fall with injury or currently using an Ambulatory Assistive Device (Walker, Cane, Wheelchair, Crutches, etc.)? No PATIENT GENDER DATA: Female. status: : No status: NO. PATIENT RELEVANT IMPLANT DATA REVIEWED: Yes RADIOLOGY DEPARTMENT: CT; Exam(s) Completed: Abdomen/Pelvis PERIPHERAL IV DATA: Site assessment: Clean,Dry and Intact, Site disposition Discontinued SIGNED BY: RT Carmella(R) October 09, 2021 2:12 PM [facility] 10-09-2021 History of Present illness Narrative Radiology Service Progress Note PATIENT NAME: Yumiko Shannon DATE OF SERVICE: October 09, 2021 TIME: 2:12 PM PATIENT IDENTITY VERIFICATION COMPLETED USING TWO (2) IDENTIFIERS: Name and Date of confirmed by patient verbally and Name and Date of confirmed by identification band. FALL SCREENING: Has the patient had 2 falls in the last year or 1 fall with injury or currently using an Ambulatory Assistive Device (Walker, Cane, Wheelchair, Crutches, etc.)? No PATIENT GENDER DATA: Female. status: : No status: NO. PATIENT RELEVANT IMPLANT DATA REVIEWED: Yes RADIOLOGY DEPARTMENT: CT; Exam(s) Completed: Abdomen/Pelvis PERIPHERAL IV DATA: Site assessment: Clean,Dry and Intact, Site disposition Discontinued SIGNED BY: RT Carmella(R) October 09, 2021 2:12 PM Radiology Service Progress Note DATE OF SERVICE: October 09, 2021 TIME: 1:44 PM PATIENT WEIGHT: 163LBS PATIENT IDENTITY VERIFICATION COMPLETED USING TWO (2) STANDARD IDENTIFIERS: Name and Date of confirmed by patient verbally and Name and Date of confirmed by identification band. FALL SCREENING: Has the patient had 2 falls in the last year or 1 fall with injury or currently using an Ambulatory Assistive Device (Walker, Cane, Wheelchair, Crutches, etc.)? No PATIENT GENDER DATA: Female. status: : No status: NO. ALLERGIES: Reviewed and unchanged CONTRAST ALLERGY: No EXAM: CT -CONTRAST INDUCED NEPHROPATHY RISK FACTORS: Not applicable CREATININE: No results found for: CREAT, EGFROTH, EGFRAA P.O.C.T. RESULTS: N/A October 09, 2021 TREATMENT: N/A IV SITE: Ambulatory: A peripheral IV was started in the Left antecubital site with a Angio cath: 22 gauge. and A Saline lock was inserted per protocol IV SITE APPEARANCE: Clean,Dry and Intact SIGNATURE: Lina Anthony RN PATIENT NAME: Yumiko Shannon DATE: October 09, 2021 TIME: 1:44 PM documented in this encounter [facility] 10-05-2021 Miscellaneous Notes Component Latest Ref Rng & Units 10/03/2021 CA 125 <39 U/mL 17 [facility] 10/02/2021 Assessment & Plan Encounter Diagnosis ICD-10-CM 1. Thickened endometrium R93.89 2. Abdominal pain, unspecified abdominal location R10.9 3. History of hysteroscopy Z98.890 4. Acute abdomen R10.0 CT ABD/PEL W IVCON iv contrast (will be provided with radiology test) 5. [address]11.0 [address] ABD/PEL W IVCON iv contrast (will be provided with radiology test) 50 year old presents for virtual visit discussion re: abdominal discomfort, thickened endometrium. #Thickened endometrium: patient with 10-year history of bleeding 1-2x per year, with recent FSH and E2 consistent with premenopausal state. She presented with vaginal discharge 06/2021 and had pelvic ultrasound that showed 1.6cm endometrial stripe. Hysteroscopy 09/07 showed thickened endometrium and blind curettage sampling showed focally polypoid endometrial tissue with degenerative changes. Patient reports abdominal pain since hysteroscopy with accompanying decreased appetite, night sweats and 9 lb weight loss in the past month. It is possible that patient has uterine or other malignancy, and entire endometrial cavity may not have been sampled secondary to blind endometrial sampling. DDx also includes malignancy of unknown source vs. Postoperative sequelae. --CA 125 ordered but never drawn, encouraged patient to have this drawn --CT A/P ordered --Consider repeat hysteroscopy with visually directed sampling --Patient to keep GI appointment on October 24 --Follow up pending the above results, consider [facility] referral if concerning findings. Issa Hilliard MD Clinical Fellow PGY-6 Minimally Invasive Gynecologic Surgery Department of Obstetrics and Gynecology [place], [place] 10/02/2021 ummary: Lab work Patient called in with concerns in regards to the results of recent lab work she has had done. Patient was requested to contact office when results were placed. documented in this encounter [facility] 10-02-2021 Note HNO ID: [id number] Author: Issa Hilliard MD Service: ? Author Type: Fellow Type: Progress Notes Filed: 10/02/2021 5:52 PM Note Text: Gynecology Virtual Visit 50 year old presents for virtual visit discussion re: abdominal discomfort, thickened endometrium. HPI: Ms. Shannon describes always having very light periods, could use one pad for 3 days at a time throughout her whole life. She says that since age 41, she only has had periods 1-2 times per year. Never gone >12 months without a period per patient during our discussion today, though previous notes state that she hasn't bled in 2 years (since around age 48). Most recently, she presented with clear discharge in June 2021. She had blood work performed and FSH was 7.8 and estradiol 323, not consistent with menopause. Pelvic ultrasound was recommended as part of this work up. On pelvic ultrasound 07/28/21, patient was noted to have fibroid uterus measuring 8.8 x 4.4 x 6.2cm with central endometrial complex measuring 16.3mm. EMB was attempted in the office 08/04, but this was not successful secondary to cervical stenosis. On 09/07/21, she underwent hysteroscopy with dilation and curettage and Pap smear. Findings were notable for thickened endometrium and pseudopolypoid changes, normal endometrial cavity, no polyps or fibroids noted. Pathology showed Focally polypoid benign endometrial tissue with degenerative changes and focal breakdown. - Endocervical and squamous mucosa with inflammation and reactive changes. Of note, pathology specimen was obtained through blind dilation and curettage. Ms. Shannon reports that she developed sharp pain in her pelvis (bilateral lower quadrants) that began after the hysteroscopy. She describes pain as intermittent since the hysteroscopy, sharp pain. She says that mornings are best, pain is relieved with lying flat. She went to the ED at [facility] 09/15 per report and was told that everything was okay (no records available today). She saw Dr. Cassy Ley 09/15 who noted minimal abdominal tenderness on exam and was recommended to have GI evaluation. She reports she can hardly eat. She is able to eat soft foods like cottage cheese, but is very bothered by meat, breads, greens. If she eats, she feels severe abdominal pain and bloating. She lost 9 lbs over the past month unintentionally. She also describes night sweats for the past 1 month. 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 Sexually active: She is not currently sexually active. Urinary symptoms: urinary frequency, unsure over what period of time. Bowel symptoms: small amount of BMs, thinks this is because she is eating less than normal. IMAGING: Pelvic ultrasound 07/28/21 Impression Anteverted fibroid uterus that measures 88 mm x 44 mm x 62 mm. The largest fibroids are described below. Fibroid(s): Size 30 mm x 27 mm x 25 mm. Mean 27.3 mm. Vol 10.603 cm?. Right lateral wall The central endometrial complex measures 16.3 mm in combined thickness. Endometrial pathology cannot be excluded as the endometrium is complex in appearance and thickened. Both ovaries are visualized and appear normal. No adnexal masses were observed. There is no free fluid visualized in the peritoneal cavity. Recommendations Consider further clinical evaluation of the endometrium. Method Transabdominal, transvaginal, 3D ultrasound examination. Uterus Uterus: Visualized Uterus position: anteverted Endometrium: complex, thickened Uterus long 88 mm Uterus ap 44 mm Uterus tr 62 mm Uterus Vol 126.1 cm? Endometrial thickness, total 16.3 mm Uterine fibroid D1 30 mm Uterine fibroid D2 27 mm Uterine fibroid D3 25 mm Uterine fibroid mean 27.3 mm Uterine fibroid vol 10.603 cm? Uterine fibroids findings: Right lateral wall Right Ovary Rt ovary: Visualized Rt ovary D1 25 mm Rt ovary D2 13 mm Rt ovary D3 10 mm Rt ovary Vol 1.6 cm? Left Ovary Lt ovary: Visualized Lt ovary D1 26 mm Lt ovary D2 27 mm Lt ovary D3 21 mm Lt ovary Vol 7.9 cm? Cul de Sac Visualized. no free fluid visualized Past Gynecologic History: Last pap cytology: NILM 08/2021 Past Obstetrical History: Past Medical History: PAST MEDICAL HISTORY Diagnosis Date - Acute cholecystitis Gall Bladder Pain - Migraines Past Surgical History: PAST SURGICAL HISTORY Procedure Laterality Date - CHOLECYSTECTOMY 05/25/2016 - CLAY, DIAG AND/OR THERAPEUTIC 09/07/2021 at [facility] - and Uterine Polypectomy Family History: FAMILY HISTORY Problem Relation Age of Onset - Diabetes Mother - Heart Mother CHF - Kidney Disease Mother Kidney Failure - Osteoporosis Mother - Hypertension Mother - other (Hypoglycemia) Sister - Blood Disease Brother Bleeder - Heart Brother Enlarged Heart Social History (more content not included)... [facility] 10-02-2021 History of Present illness Narrative Gynecology Virtual Visit 50 year old presents for virtual visit discussion re: abdominal discomfort, thickened endometrium. HPI: Ms. Shannon describes always having very light periods, could use one pad for 3 days at a time throughout her whole life. She says that since age 41, she only has had periods 1-2 times per year. Never gone >12 months without a period per patient during our discussion today, though previous notes state that she hasn't bled in 2 years (since around age 48). Most recently, she presented with clear discharge in June 2021. She had blood work performed and FSH was 7.8 and estradiol 323, not consistent with menopause. Pelvic ultrasound was recommended as part of this work up. On pelvic ultrasound 07/28/21, patient was noted to have fibroid uterus measuring 8.8 x 4.4 x 6.2cm with central endometrial complex measuring 16.3mm. EMB was attempted in the office 08/04, but this was not successful secondary to cervical stenosis. On 09/07/21, she underwent hysteroscopy with dilation and curettage and Pap smear. Findings were notable for thickened endometrium and pseudopolypoid changes, normal endometrial cavity, no polyps or fibroids noted. Pathology showed Focally polypoid benign endometrial tissue with degenerative changes and focal breakdown. - Endocervical and squamous mucosa with inflammation and reactive changes. Of note, pathology specimen was obtained through blind dilation and curettage. Ms. Shannon reports that she developed sharp pain in her pelvis (bilateral lower quadrants) that began after the hysteroscopy. She describes pain as intermittent since the hysteroscopy, sharp pain. She says that mornings are best, pain is relieved with lying flat. She went to the ED at [facility] 09/15 per report and was told that everything was okay (no records available today). She saw Dr. Cassy Ley 09/15 who noted minimal abdominal tenderness on exam and was recommended to have GI evaluation. She reports she can hardly eat. She is able to eat soft foods like cottage cheese, but is very bothered by meat, breads, greens. If she eats, she feels severe abdominal pain and bloating. She lost 9 lbs over the past month unintentionally. She also describes night sweats for the past 1 month. 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 Sexually active: She is not currently sexually active. Urinary symptoms: urinary frequency, unsure over what period of time. Bowel symptoms: small amount of BMs, thinks this is because she is eating less than normal. IMAGING: Pelvic ultrasound 07/28/21 Impression Anteverted fibroid uterus that measures 88 mm x 44 mm x 62 mm. The largest fibroids are described below. Fibroid(s): Size 30 mm x 27 mm x 25 mm. Mean 27.3 mm. Vol 10.603 cm . Right lateral wall The central endometrial complex measures 16.3 mm in combined thickness. Endometrial pathology cannot be excluded as the endometrium is complex in appearance and thickened. Both ovaries are visualized and appear normal. No adnexal masses were observed. There is no free fluid visualized in the peritoneal cavity. Recommendations Consider further clinical evaluation of the endometrium. Method Transabdominal, transvaginal, 3D ultrasound examination. Uterus Uterus: Visualized Uterus position: anteverted Endometrium: complex, thickened Uterus long 88 mm Uterus ap 44 mm Uterus tr 62 mm Uterus Vol 126.1 cm Endometrial thickness, total 16.3 mm Uterine fibroid D1 30 mm Uterine fibroid D2 27 mm Uterine fibroid D3 25 mm Uterine fibroid mean 27.3 mm Uterine fibroid vol 10.603 cm Uterine fibroids findings: Right lateral wall Right Ovary Rt ovary: Visualized Rt ovary D1 25 mm Rt ovary D2 13 mm Rt ovary D3 10 mm Rt ovary Vol 1.6 cm Left Ovary Lt ovary: Visualized Lt ovary D1 26 mm Lt ovary D2 27 mm Lt ovary D3 21 mm Lt ovary Vol 7.9 cm Cul de Sac Visualized. no free fluid visualized Past Gynecologic History: Last pap cytology: NILM 08/2021 Past Obstetrical History: Past Medical History: PAST MEDICAL HISTORY Diagnosis Date Acute cholecystitis Gall Bladder Pain Migraines Past Surgical History: PAST SURGICAL HISTORY Procedure Laterality Date CHOLECYSTECTOMY 05/25/2016 D&C, DIAG AND/OR THERAPEUTIC 09/07/2021 at [facility] - and Uterine Polypectomy Family History: FAMILY HISTORY Problem Relation Age of Onset Diabetes Mother Heart Mother CHF Kidney Disease Mother Kidney Failure Osteoporosis Mother Hypertension Mother other (Hypoglycemia) Sister Blood Disease Brother Bleeder Heart Brother Enlarged Heart Social History: Social History Tobacco Use Smoking status: Never Smoker Smokeless tobacco: Never Used Substance Use Topics Alcohol use: No Drug use: No Current Outpatient Medications Medication Sig iv contrast (will be provided with radiology test) CT ABD/PEL -Inject, intravenously, once for 1 dose.No IV access, insert saline lock prior to the beginning of sedation, infusion, injection of imaging exam. Discontinue saline lock post exam. If Pt. has a central line or IVAD, may access for administration according to line specific nursing protocol. Once exam is complete flush line and de-access according to line specific nursing protocol in the CT contrast administration guidelines link. Multivitamin capsule Take 1 capsule by mouth once daily. ibuprofen (MOTRIN) 200 mg tablet Take 200 mg by mouth every 6 hours as needed. (Patient not taking: Reported on 09/12/2021 ) acetaminophen (TYLENOL EXTRA STRENGTH) 500 mg tablet Take 1,000 mg by mouth every 6 hours as needed. (Patient not taking: Reported on 09/12/2021 ) No current facility-administered medications for this visit. Allergies As of Date: 10/02/2021 (No Known Allergies) Fully Assessed 09/15/2021 O: No vital signs, virtual visit Assessment & Plan Encounter Diagnosis ICD-10-CM 1. Thickened endometrium R93.89 2. Abdominal pain, unspecified abdominal location R10.9 3. History of hysteroscopy Z98.890 4. Acute abdomen R10.0 CT ABD/PEL W IVCON iv contrast (will be provided with radiology test) 5. Nause[address] R11.0 CT ABD/PEL W IVCON iv contrast (will be provided with radiology test) 50 year old presents for virtual visit discussion re: abdominal discomfort, thickened endometrium. #Thickened endometrium: patient with 10-year history of bleeding 1-2x per year, with recent FSH and E2 consistent with premenopausal state. She presented with vaginal discharge 06/2021 and had pelvic ultrasound that showed 1.6cm endometrial stripe. Hysteroscopy 09/07 showed thickened endometrium and blind curettage sampling showed focally polypoid endometrial tissue with degenerative changes. Patient reports abdominal pain since hysteroscopy with accompanying decreased appetite, night sweats and 9 lb weight loss in the past month. It is possible that patient has uterine or other malignancy, and entire endometrial cavity may not have been sampled secondary to blind endometrial sampling. DDx also includes malignancy of unknown source vs. Postoperative sequelae. --CA 125 ordered but never drawn, encouraged patient to have this drawn --CT A/P ordered --Consider repeat hysteroscopy with visually directed sampling --Patient to keep GI appointment on October 24 --Follow up pending the above results, consider [facility] referral if concerning findings. Medical Decision Making: Problems: Moderate: 1+ chronic illnesses with change Data: Unique test result(s) reviewed: 2 Unique test(s) ordered: 1 Risk: Moderate: Moderate risk from testing/treatment Medical Decision Making Level: 4 - Moderate Issa Hilliard MD Clinical Fellow PGY-6 Minimally Invasive Gynecologic Surgery Department of Obstetrics and Gynecology [place], [place] 10/02/2021 documented in this encounter [facility] 09-15-2021 Note HNO ID: [id number] Author: Cassy Ley MD Service: ? Author Type: Physician Type: Progress Notes Filed: 09/15/2021 11:26 AM Note Text: Yumiko Shannon is a 50 year old female who presents for abdominal pain. HPI: Patient presents with abdominal pain that is stable from last week. Movement triggers the pain and it guzman AND feels like something is tearing. Resting makes the pain better and she feels well in the morning. Her pain is mostly left sided but can be on the right or under her belly button. Denies fevers. Her appetite is still decreased. Denies N/V or diarrhea but has some constipation. OB History T0 L0 SAB0 IAB0 Ectopic0 Multiple0 Live Births0 [place] History LMP: LMP Unknown, Postmenopausal Age at Menarche: Age at First : Age at Menopause: [place] History Comments: Sexual Activity: Never; No partner data on record Contraception: No contraception data on record PAST MEDICAL HISTORY Diagnosis Date - Acute cholecystitis Gall Bladder Pain - Migraines PAST SURGICAL HISTORY Procedure Laterality Date - CHOLECYSTECTOMY 05/25/2016 - [place], DIAG AND/OR THERAPEUTIC 09/07/2021 at [facility] - and Uterine Polypectomy FAMILY HISTORY Problem Relation Age of Onset - Diabetes Mother - Heart Mother CHF - Kidney Disease Mother Kidney Failure - Osteoporosis Mother - Hypertension Mother - other (Hypoglycemia) Sister - Blood Disease Brother Bleeder - Heart Brother Enlarged Heart Social History Tobacco Use - Smoking status: Never Smoker - Smokeless tobacco: Never Used Substance Use Topics - Alcohol use: No - Drug use: No Current Outpatient Medications Medication Sig - doxycycline hyclate (VIBRAMYCIN) 100 mg capsule Take 1 capsule by mouth twice daily for 10 days. - Multivitamin capsule Take 1 capsule by mouth once daily. - ibuprofen (MOTRIN) 200 mg tablet Take 200 mg by mouth every 6 hours as needed. (Patient not taking: Reported on 09/12/2021 ) - acetaminophen (TYLENOL EXTRA STRENGTH) 500 mg tablet Take 1,000 mg by mouth every 6 hours as needed. (Patient not taking: Reported on 09/12/2021 ) No current facility-administered medications for this visit. Allergies As of Date: 09/15/2021 (No Known Allergies) Fully Assessed 09/15/2021 Allergies and current medication updated:Yes EXAM: BP 112/72 Temp (Src) 97.6 (Left Tympanic) Wt 168 lb (76.2kg) GENERAL: pleasant, female in no apparent distress CHEST: Normal inspiratory effort ABDOMEN: soft and no masses; minimal abdominal tenderness, no rebound or guarding PELVIC: deferred NEURO: alert and oriented x3,exam grossly non-focal EXTREMITIES: normal ASSESSMENT AND PLAN: 50yo female with abdominal pain Patient with h/o abdominal pain prior to surgery. Her exam is overall benign. At this time there is no evidence her pain is related to her recent surgery. She has decreased appetite so would recommend GI evaluation. All questions answered AND patient agrees with plan. I spent a total of 23 minutes on the date of the service which included preparing to see the patient, [id number] patient care, completing clinical documentation, performing a medically appropriate examination and counseling and educating the patient/family/caregiver. Cassy Ley MD [facility] 09-15-2021 History of Present illness Narrative Yumiko Shannon is a 50 year old female who presents for abdominal pain. HPI: Patient presents with abdominal pain that is stable from last week. Movement triggers the pain and it guzman & feels like something is tearing. Resting makes the pain better and she feels well in the morning. Her pain is mostly left sided but can be on the right or under her belly button. Denies fevers. Her appetite is still decreased. Denies N/V or diarrhea but has some constipation. OB History T0 L0 SAB0 IAB0 Ectopic0 Multiple0 Live Births0 [place] History LMP: LMP Unknown, Postmenopausal Age at Menarche: Age at First : Age at Menopause: [place] History Comments: Sexual Activity: Never; No partner data on record Contraception: No contraception data on record PAST MEDICAL HISTORY Diagnosis Date Acute cholecystitis Gall Bladder Pain Migraines PAST SURGICAL HISTORY Procedure Laterality Date CHOLECYSTECTOMY 05/25/2016 D&C, DIAG AND/OR THERAPEUTIC 09/07/2021 at [facility] - and Uterine Polypectomy FAMILY HISTORY Problem Relation Age of Onset Diabetes Mother Heart Mother CHF Kidney Disease Mother Kidney Failure Osteoporosis Mother Hypertension Mother other (Hypoglycemia) Sister Blood Disease Brother Bleeder Heart Brother Enlarged Heart Social History Tobacco Use Smoking status: Never Smoker Smokeless tobacco: Never Used Substance Use Topics Alcohol use: No Drug use: No Current Outpatient Medications Medication Sig doxycycline hyclate (VIBRAMYCIN) 100 mg capsule Take 1 capsule by mouth twice daily for 10 days. Multivitamin capsule Take 1 capsule by mouth once daily. ibuprofen (MOTRIN) 200 mg tablet Take 200 mg by mouth every 6 hours as needed. (Patient not taking: Reported on 09/12/2021 ) acetaminophen (TYLENOL EXTRA STRENGTH) 500 mg tablet Take 1,000 mg by mouth every 6 hours as needed. (Patient not taking: Reported on 09/12/2021 ) No current facility-administered medications for this visit. Allergies As of Date: 09/15/2021 (No Known Allergies) Fully Assessed 09/15/2021 Allergies and current medication updated:Yes EXAM: BP 112/72 Temp (Src) 97.6 (Left Tympanic) Wt 168 lb (76.2kg) GENERAL: pleasant, female in no apparent distress CHEST: Normal inspiratory effort ABDOMEN: soft and no masses; minimal abdominal tenderness, no rebound or guarding PELVIC: deferred NEURO: alert and oriented x3,exam grossly non-focal EXTREMITIES: normal ASSESSMENT AND PLAN: 50yo female with abdominal pain Patient with h/o abdominal pain prior to surgery. Her exam is overall benign. At this time there is no evidence her pain is related to her recent surgery. She has decreased appetite so would recommend GI evaluation. All questions answered & patient agrees with plan. I spent a total of 23 minutes on the date of the service which included preparing to see the patient, [id number] patient care, completing clinical documentation, performing a medically appropriate examination and counseling and educating the patient/family/caregiver. Cassy Ley MD documented in this encounter [facility] 09-14-2021 Miscellaneous Notes Patient notified and voiced understanding of information and instructions below. Appointment scheduled for tomorrow. Marcela Posadas RN I recommend she take ibuprofen & tylenol alternating to control the pain. Also should try prune juice or miralax if constipated. If having severe pain would recommend her going to the ED. Otherwise please schedule her with me at 10am tomorrow. If she is feeling better tomorrow appointment can be canceled. has no openings but would be in the office then. Thanks. Cassy Ley MD Patient calling with increased pain in her LLQ of abdomen with movement. Patient states when she is up and moving she states her side feels like it is ripping apart and rates pain at an 8 out of 10. Patient is not currently taking anything for pain and last took Tylenol last evening. Patient was seen in office on 09/12 for increased abdominal pain and was given antibiotic for possible post op infection. Patient had Hysteroscopy D&C and polypectomy on 09/07. Patient denies any fever, diarrhea, nausea/vomiting, abnormal vaginal discharge. Per patient she has not had a BM since 09/12. Patient states she would not be able to arrange transportation to office for visit until tomorrow if she needs to be seen. Marcela Posadas RN documented in this encounter [facility] 09-14-2021 Miscellaneous Notes Returned patient's call, verified name and . Patient requesting appointment with Dr. Pham for a second opinion regarding fibroids. Offered patient Dr. Pham's soonest available for both main and [facility]. Patient would like to be seen sooner. Accepted virtual appointment with Dr. Hilliard on 10/02. Elis Stephens RN Patient left VM on nurse triage line. She would like a return call from either a nurse or Dr. Pham. Elis Stephens RN documented in this encounter [facility] 09-12-2021 Note HNO ID: [id number] Author: Cassy Ley MD Service: ? Author Type: Physician Type: Progress Notes Filed: 09/12/2021 3:18 PM Note Text: DATE OF SERVICE: 09/12/2021 SURGERY AND DATE: Hysteroscopy Dilation and Curettage; Uterine Polypectomy 09/07/21 at [facility] Yumiko Shannon is a 50 year old female who presents for concerns. HPI: Patient presents with some increased abdominal pain today. Also reports decreased appetite since surgery. Unsure about fever but she has felt hot today. OB History T0 L0 SAB0 IAB0 Ectopic0 Multiple0 Live Births0 [place] History LMP: LMP Unknown, Postmenopausal Age at Menarche: Age at First : Age at Menopause: [place] History Comments: Sexual Activity: Never; No partner data on record Contraception: No contraception data on record PAST MEDICAL HISTORY Diagnosis Date - Acute cholecystitis Gall Bladder Pain - Migraines PAST SURGICAL HISTORY Procedure Laterality Date - CHOLECYSTECTOMY 05/25/2016 - DANDC, DIAG AND/OR THERAPEUTIC 09/07/2021 at [facility] - and Uterine Polypectomy FAMILY HISTORY Problem Relation Age of Onset - Diabetes Mother - Heart Mother CHF - Kidney Disease Mother Kidney Failure - Osteoporosis Mother - Hypertension Mother - other (Hypoglycemia) Sister - Blood Disease Brother Bleeder - Heart Brother Enlarged Heart Social History Tobacco Use - Smoking status: Never Smoker - Smokeless tobacco: Never Used Substance Use Topics - Alcohol use: No - Drug use: No Current Outpatient Medications Medication Sig - Multivitamin capsule Take 1 capsule by mouth once daily. - doxycycline hyclate (VIBRAMYCIN) 100 mg capsule Take 1 capsule by mouth twice daily for 10 days. - ibuprofen (MOTRIN) 200 mg tablet Take 200 mg by mouth every 6 hours as needed. (Patient not taking: Reported on 09/12/2021 ) - acetaminophen (TYLENOL EXTRA STRENGTH) 500 mg tablet Take 1,000 mg by mouth every 6 hours as needed. (Patient not taking: Reported on 09/12/2021 ) No current facility-administered medications for this visit. Allergies As of Date: 09/12/2021 (No Known Allergies) Fully Assessed 09/12/2021 Allergies and current medication updated:Yes EXAM: Temp (Src) 98.1 (Left Tympanic) Wt 168 lb 3.2 oz (76.3kg) GENERAL: pleasant, female in no apparent distress ABDOMEN: soft and no masses; minimal tenderness, no rebound or guarding PELVIC: external genitalia normal, normal Bartholin's glands, urethra, Bayshore's glands, no vulvar lesions, no cervical lesions, good vaginal support, scant discharge present, normal appearing perineal body and perianal region BIMANUAL: uterus with mild tenderness, no adnexal tenderness ASSESSMENT AND PLAN: 50yo female with pelvic pain s/p hysteroscopy Will start doxycycline for possible post-op infection Patient to update the office in 2-3 days or if develops increased pain/fevers Cassy Ley MD [facility] 09-12-2021 History of Present illness Narrative DATE OF SERVICE: 09/12/2021 SURGERY & DATE: Hysteroscopy Dilation and Curettage; Uterine Polypectomy 09/07/21 at [facility] Yumiko Shannon is a 50 year old female who presents for concerns. HPI: Patient presents with some increased abdominal pain today. Also reports decreased appetite since surgery. Unsure about fever but she has felt hot today. OB History T0 L0 SAB0 IAB0 Ectopic0 Multiple0 Live Births0 [place] History LMP: LMP Unknown, Postmenopausal Age at Menarche: Age at First : Age at Menopause: [place] History Comments: Sexual Activity: Never; No partner data on record Contraception: No contraception data on record PAST MEDICAL HISTORY Diagnosis Date Acute cholecystitis Gall Bladder Pain Migraines PAST SURGICAL HISTORY Procedure Laterality Date CHOLECYSTECTOMY 05/25/2016 D&C, DIAG AND/OR THERAPEUTIC 09/07/2021 at [facility] - and Uterine Polypectomy FAMILY HISTORY Problem Relation Age of Onset Diabetes Mother Heart Mother CHF Kidney Disease Mother Kidney Failure Osteoporosis Mother Hypertension Mother other (Hypoglycemia) Sister Blood Disease Brother Bleeder Heart Brother Enlarged Heart Social History Tobacco Use Smoking status: Never Smoker Smokeless tobacco: Never Used Substance Use Topics Alcohol use: No Drug use: No Current Outpatient Medications Medication Sig Multivitamin capsule Take 1 capsule by mouth once daily. doxycycline hyclate (VIBRAMYCIN) 100 mg capsule Take 1 capsule by mouth twice daily for 10 days. ibuprofen (MOTRIN) 200 mg tablet Take 200 mg by mouth every 6 hours as needed. (Patient not taking: Reported on 09/12/2021 ) acetaminophen (TYLENOL EXTRA STRENGTH) 500 mg tablet Take 1,000 mg by mouth every 6 hours as needed. (Patient not taking: Reported on 09/12/2021 ) No current facility-administered medications for this visit. Allergies As of Date: 09/12/2021 (No Known Allergies) Fully Assessed 09/12/2021 Allergies and current medication updated:Yes EXAM: Temp (Src) 98.1 (Left Tympanic) Wt 168 lb 3.2 oz (76.3kg) GENERAL: pleasant, female in no apparent distress ABDOMEN: soft and no masses; minimal tenderness, no rebound or guarding PELVIC: external genitalia normal, normal Bartholin's glands, urethra, Bayshore's glands, no vulvar lesions, no cervical lesions, good vaginal support, scant discharge present, normal appearing perineal body and perianal region BIMANUAL: uterus with mild tenderness, no adnexal tenderness ASSESSMENT AND PLAN: 50yo female with pelvic pain s/p hysteroscopy Will start doxycycline for possible post-op infection Patient to update the office in 2-3 days or if develops increased pain/fevers Cassy Ley MD documented in this encounter [facility] 09-12-2021 Miscellaneous Notes Addended by: MICHAEL REED LPN on: 09/12/2021 12:48 PM Modules accepted: Orders Per lab pap order that was placed today will need cancelled and the order that needs place is for HPV only. Lab will watch for the order to be placed Ordered. Thanks Received a call from [facility] Cytology lab. In the Pap order comments it says to run high risk HPV. In order to do this an order for HPV needs placed. Cytology will watch for the order. Thank you. Leslie Mcpherson RN documented in this encounter [facility] 08-18-2021 Note HNO ID: [id number] Author: Juan Manuel Burnett MD Service: ? Author Type: Physician Type: Progress Notes Filed: 08/18/2021 11:53 AM Note Text: VIRTUAL VISIT PROGRESS NOTE This is a virtual visit using Filement video visit. It required patient-provider interaction for the medical decision making as documented below. Yumiko Shannon is a 50 year old female seen for uterine fibroids. Stopped menses and came in to see Connie Blankenship APRN. Has not been feeling good for a while and had some blood work. Shown to be premenopausal. However, hasn't had bleeding in 2 years. When was having menses had clots and were monthly. Denies hot flashes, used to have some but doesn't now. Has had burning pain and nausea and bloating when she eats. Takes some OTC pain mends and then can usually eat. Decreased appetite. No major changes in BMs. HISTORY REVIEWED (electronic chart updated): PAST MEDICAL HISTORY Diagnosis Date - Acute cholecystitis Gall Bladder Pain - Migraines PAST SURGICAL HISTORY Procedure Laterality Date - CHOLECYSTECTOMY 05/25/2016 FAMILY HISTORY Problem Relation Age of Onset - Diabetes Mother - Heart Mother CHF - Kidney Disease Mother Kidney Failure - Osteoporosis Mother - Hypertension Mother - other (Hypoglycemia) Sister - Blood Disease Brother Bleeder - Heart Brother Enlarged Heart Social History Tobacco Use - Smoking status: Never Smoker - Smokeless tobacco: Never Used Substance Use Topics - Alcohol use: No - Drug use: No Current Outpatient Medications Medication Sig - ondansetron orally disintegrating (ZOFRAN ODT) 4 mg disintegrating tablet Take 1 tablet by mouth every 8 hours as needed. No current facility-administered medications for this visit. ALLERGIES No Known Allergies REVIEW OF SYSTEMS: gi- Deneis melena or hematochezia PHYSICAL EXAMINATION: VIDEO EXAM: (if completed, performed via video enabled technology) GENERAL: alert and appropriate, in no distress, well-hydrated, well nourished and happy, smiling, interactive ASSESSMENT: thickened endometrium, secondary amenorrhea w/ premenopausal hormone levels PLAN: R/B/A/P to Hysteroscopy [place] reviewed, quesitons answered and she desirs to proceed. Reviewed last pap/pelvic US. Due for pap. may need cyclic provera after. D/wher this may or may not be contributing to pain. If not menopausal and cervix is stenotic that may be some of her pain. There are no Patient Instructions on file for this visit. Juan Manuel Burnett MD [facility] 08-04-2021 Note HNO ID: [id number] Author: Connie Blankenship APRN.CNP Service: ? Author Type: Nurse Practitioner Type: Progress Notes Filed: 08/04/2021 12:06 PM Note Text: Yumiko is a 50 year old who presents today for an endometrial biopsy for thickening of endometrial lining. test: negative UNIVERSAL PROTOCOL / SAFETY CHECKLIST Procedure to be Performed: EMB Sign In: A Moment of CARE was completed. Personnel directly involved with the procedure wore the appropriate PPE (Personal Protective Equipment). Patient/Surrogate Stated/Verified: PATIENT VERIFIED(optional for EMERGENT procedures): Patient name, Date of , Relevant allergies and The intended procedure Time Out Communication: Intended patient and procedure match the source documents. Consent documented and matches the intended procedure. Sign Out: SIGN OUT (optional for EMERGENT procedures): No specimen collected. All instruments, equipment, possible retained foreign bodies accounted for. PROCEDURE: EXTERNAL GENITALIA: Normal in appearance without lesions VAGINA: Normal in appearance without lesions BIOPSY: Speculum placed into the vagina with excellent visualization of the cervix. Cervix cleaned with betadine. Anterior lip of cervix grasped with single toothed tenaculum. Unable to pass through the cervix even with dilation. Procedure Summary: Patient tolerated procedure well. ASSESSMENT: thickening of endometrial lining PLAN: Post-procedure instructions reviewed and written material given to the patient. Will notify pt of care plan after consulting in doctor. Connie Blankenship APRN.ANTONINO *spoke with Dr Hou recommendation is for a hysteroscopy [facility] Pt aware of recommendation with that the office will in contact with her to schedule. [facility] 07-20-2021 Note HNO ID: [id number] Author: Connie Blankenship APRN.ANTONINO Service: ? Author Type: Nurse Practitioner Type: Progress Notes Filed: 07/20/2021 4:24 PM Note Text: Yumiko Shannon is a 50 year old female who presents for problem visit hormone issues. HPI: she states that her menses stopped about 2 yrs ago. She states that she is having trouble with bloating, just fells awful, larger amount of clear vaginal discharge, and restless nights. Did have hot flashes but those are now gone. Never sexually active. OB History T0 L0 SAB0 IAB0 Ectopic0 Multiple0 Live Births0 [place] History LMP: LMP Unknown, Having periods Age at Menarche: Age at First : Age at Menopause: [place] History Comments: Sexual Activity: Never; No partner data on record Contraception: No contraception data on record PAST MEDICAL HISTORY Diagnosis Date - Acute cholecystitis Gall Bladder Pain - Migraines PAST SURGICAL HISTORY Procedure Laterality Date - CHOLECYSTECTOMY 05/25/2016 FAMILY HISTORY Problem Relation Age of Onset - Diabetes Mother - Heart Mother CHF - Kidney Disease Mother Kidney Failure - Osteoporosis Mother - Hypertension Mother - other (Hypoglycemia) Sister - Blood Disease Brother Bleeder - Heart Brother Enlarged Heart Social History Tobacco Use - Smoking status: Never Smoker - Smokeless tobacco: Never Used Substance Use Topics - Alcohol use: No - Drug use: No Current Outpatient Medications Medication Sig - medroxyPROGESTERone (PROVERA) 10 mg tablet If no period for 2 months take once daily for 5 days to induce a period. (Patient not taking: Reported on 02/12/2019 ) - oxyCODONE-acetaminophen (PERCOCET) 5-325 mg tablet Take 1-2 tablets by mouth every 4 hours as needed. (Patient not taking: Reported on 02/12/2019 ) - Multivitamin capsule Take 1 capsule by mouth once daily. - Magnesium 30 mg tablet Take 30 mg by mouth twice daily. - amino acids-rice uewtzrf-xz-ll (K-PAX IMMUNE BOOSTER) 24 gram-240 kcal/65 gram powd Take by mouth. - ASPIRIN/ACETAMINOPHEN/CAFFEINE (EXCEDRIN EXTRA STRENGTH ORAL) Take by mouth. No current facility-administered medications for this visit. Allergies As of Date: 07/20/2021 (No Known Allergies) Fully Assessed 07/20/2021 REVIEW OF SYSTEMS Bladder: No dysuria, gross hematuria, urinary frequency, urinary urgency, or incontinence. Expanded ROS: N/A Allergies and current medication updated:Yes EXAM: BP 110/78 Wt 172 lb 3.2 oz (78.1kg) GENERAL: pleasant, female in no apparent distress HEENT: Normocephalic, atraumatic, mucus membranes moist and no lesions CHEST: Normal inspiratory effort NEURO: alert and oriented x3,exam grossly non-focal ASSESSMENT/PLAN: 1. Amenorrhea - ICD9: 626.0, ICD10: N91.2 (primary diagnosis) - FSH BLD - ESTRADIOL-17B BLD - TSH BLD 2. Bloating - ICD9: 787.3, ICD10: R14.0 - CA 125 BLD Connie Krzysztof, STRETCHING MACHINE OPERATOR.INVENTORY TRANSCRIBER Medical Decision Making: Problems: Moderate: New problem with uncertain prognosis Data: Unique test(s) ordered: 3+ Risk: Low: Low risk from testing/treatment Medical Decision Making Level: 4 - Moderate [facility] Evaluation note Diagnosis Cervical high risk HPV (human papillomavirus) test positive- Primary Cervical high risk human papillomavirus (HPV) DNA test positive [facility] Diagnosis Postoperative infection, unspecified type, initial encounter- Primary [facility] Diagnosis Decreased appetite- Primary Anorexia Generalized abdominal pain Abdominal pain, generalized [facility] Diagnosis Thickened endometrium- Primary Nonspecific (abnormal) findings on radiological and other examination of genitourinary organs Abdominal pain, unspecified abdominal location History of hysteroscopy Acute abdomen Abdominal pain, unspecified site Nausea Nausea alone documented in this encounter [facility] note* Diagnosis Acute abdomen Abdominal pain, unspecified site Nausea Nausea alone documented in this encounter [facility] Advance Directives No Advanced Directives Records FoundDocuments on File Type Date 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 Advance Directive(s) 09/07/2021 11:29 AM S canned 09-07-2021 Advance Directive(s) 09/07/2021 11:28 AM Advance Directive(s) 08/28/2021 12:18 PM Documents on File Type Date 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 [address] Referral ID Status Reason Start Date Expiration Date Visits Requested Visits Authorized [id number] Pending Review PCP Requested Referral 09/15/2021 09/15/2022 1 1 Specialty Diagnoses / Procedures Referred By Kalyani t Referred To Contact CT IMAGING Diagnoses Acute abdomen Nausea Procedures CT ABD/PEL W IVCON CT ABD & PELVIS W/CONTRAST [place] [address] [place] [address] Ct Imaging Referral ID Status Reason Start Date Expiration Date Visits Requested Visits Authorized [id number] Pending Review Auto-Generat ed Referral 10/02/2021 11/01/2022 1 1 Summary Purpose Family History No Family History Records FoundNo Family History Records FoundNo Family History Records Found Additional Source Comments Source Comments (unrecognize d section and content) In the event this informatio n is protected by the Federal Confidentiality of Alcohol and Drug Abuse Patient Records regulations: The Federal rules restrict any use of the information to criminally investigate or prosecute any alcohol or drug abuse patient.[facility] event this information is protected by the Federal Confidentiality of Alcohol and Drug Abuse Patient Records regulations: The Federal rules restrict any use of the information to criminally investigate or prosecute any alcohol or drug abuse patient.[facility] the event this information is protected by the Federal Confidentiality of Alcohol and Drug Abuse Patient Records regulations: The Federal rules restrict any use of the information to criminally investigate or prosecute any alcohol or drug abuse patient.[facility] the event this information is protected by the Federal Confidentiality of Alcohol and Drug Abuse Patient Records regulations: The Federal rules restrict any use of the information to criminally investigate or prosecute any alcohol or drug abuse patient.[facility] the event this information is protected by the Federal Confidentiality of Alcohol and Drug Abuse Patient Records regulations: The Federal rules restrict any use of the information to criminally investigate or prosecute any alcohol or drug abuse patient.[facility] the event this information is protected by the Federal Confidentiality of Alcohol and Drug Abuse Patient Records regulations: The Federal rules restrict any use of the information to criminally investigate or prosecute any alcohol or drug abuse patient.[facility] the event this information is protected by the Federal Confidentiality of Alcohol and Drug Abuse Patient Records regulations: The Federal rules restrict any use of the information to criminally investigate or prosecute any alcohol or drug abuse patient.[facility] the event this information is protected by the Federal Confidentiality of Alcohol and Drug Abuse Patient Records regulations: The Federal rules restrict any use of the information to criminally investigate or prosecute any alcohol or drug abuse patient.[facility] the event this information is protected by the Federal Confidentiality of Alcohol and Drug Abuse Patient Records regulations: The Federal rules restrict any use of the information to criminally investigate or prosecute any alcohol or drug abuse patient.[facility] the event this information is protected by the Federal Confidentiality of Alcohol and Drug Abuse Patient Records regulations: The Federal rules restrict any use of the information to criminally investigate or prosecute any alcohol or drug abuse patient.[facility] the event this information is protected by the Federal Confidentiality of Alcohol and Drug Abuse Patient Records regulations: The Federal rules restrict any use of the information to criminally investigate or prosecute any alcohol or drug abuse patient.[facility] the event this information is protected by the Federal Confidentiality of Alcohol and Drug Abuse Patient Records regulations: The Federal rules restrict any use of the information to criminally investigate or prosecute any alcohol or drug abuse patient.[facility] the event this information is protected by the Federal Confidentiality of Alcohol and Drug Abuse Patient Records regulations: The Federal rules restrict any use of the information to criminally investigate or prosecute any alcohol or drug abuse patient.[facility] Reason for Visit (unrecogniz ed section and content) Reason Comments Radiology CT Specialty Diagnoses / Procedures Referred By Contac t Referred To Contact [facility] Department Diagnoses any Procedures consult test treat Self [facility] Dept Referral ID Status Reason Start Date Expiration Date Visits Requested Visits Authorized [id number] Authorized Patient Cleared - Qualified [id number]/[id number] 07/18/2021 10/16/2021 99 99 Reason Comments Abdominal Pain Reason Comments Lab Orders Reason Comments Post Op Specialty Diagnoses / Procedures Referred By Contac t Referred To Contact [facility] Department Diagnoses any Procedures consult test treat Self [facility] Dept Reason Comments Nurse Triage Call Reason Comments Abdominal Pain Reason Comments Post Op Reason Comments Results Care Teams (unrecognized sec tion and content) Hot Die Picker Relationship Specialty Start Date End Date Pelon Sweeney PCP - General Family Practice 04/02/16 Hot Die Picker Relationship Specialty Start Date End Date Wayt, Pelon P PCP - General Family Practice 04/02/16 Hot Die Picker Relationship Specialty Start Date End Date Wayt, Pelon P PCP - General Family Practice 04/02/16 Hot Die Picker Relationship Specialty Start Date End Date Wayt, Pelon P PCP - General Family Practice 04/02/16 Hot Die Picker Relationship Specialty Start Date End Date Wayt, Pelon P PCP - General Family Practice 04/02/16 Hot Die Picker Relationship Specialty Start Date End Date Wayt, Pelon P PCP - General Family Practice 04/02/16 Hot Die Picker Relationship Specialty Start Date End Date Wayt, Pelon P PCP - General Family Practice 04/02/16 Hot Die Picker Relationship Specialty Start Date End Date Wayt, Pelon P PCP - General Family Practice 04/02/16 Hot Die Picker Relationship Specialty Start Date End Date Wayt, Pelon P PCP - General Family Practice 04/02/16 Hot Die Picker Relationship Specialty Start Date End Date Wayt, Pelon P PCP - General Family Practice 04/02/16 Hot Die Picker Relationship Specialty Start Date End Date Wayt, Pelon P PCP - General Family Practice 04/02/16 INFORMATION SOURCE (unrecogn ized section and content) DATE CREATED AUTHOR 09/18/2021 [facility] DATE CREATED AUTHOR AUTHOR'S ORGANIZ ATION 10/12/2021 [facility] DATE CREATED AUTHOR AUTHOR'S ORGANIZ ATION [facility] FOR RECORDS PERTAINING TO PATIENTS WHO ARE OR HAVE BEEN ENROLLED IN A CHEMICAL DEPENDENCY/SUBSTANCEABUSE PROGRAM, SOME INFORMATION MAY BE OMITTED. This clinical summary was aggregated from multiple sources. Caution should be exercised in using it in the provision of clinical care. This summary normalizes information from multiple sources, and as a consequence, information in this document may materially change the coding, format and clinical context of patient data. In addition, data may be omitted in some cases. CLINICAL DECISIONS SHOULD BE BASED ON THE PRIMARY CLINICAL RECORDS. [facility]. provides no warranty or guarantee of the accuracy or completeness of information in this document.
== END 2024-04-17 00:42 | disposition home or self-care (01) ==
PROVIDERS: Emergency Provider Emergency Medicine; Visit Provider Emergency Medicine
DX: U07.1 COVID-19 (principal)
CPT/HCPCS: 87631; 99282

== ENCOUNTER → 2024-07-15 | Outpatient (CLI) | payer SELFPAY ==
--- NOTE | 2024-07-15 12:39 | VDLE_ITS ---
Reason For Study: Left leg pain RIGHT LEFT CFV is compressible, spontaneous, phasic, GSV is normal. competent and demonstrates normal CFV is compressible, spontaneous, phasic, augmentation. competent, and demonstrates normal Procedure augmentation. This is a venous duplex using B-mode, color FV is compressible, spontaneous, phasic, flow and spectral Doppler. competent and demonstrates normal Exam performed in department. augmentation. A preliminary report was called and/or faxed POP V is compressible, spontaneous, phasic, to Dr. Duncan. competent and demonstrates normal augmentation. T/P Trunk is compressible. PTV is compressible. LT PerV is compressible. VL/Venous Duplex US, Unilateral Interpretation Summary Deep veins of the left lower extremity are patent and compressible segmentally. There is no evidence of left lower extremity deep vein thrombosis. Valvular competence appears intac t within the proximal deep venous system on the left . The left great saphenous vein appears patent a nd compressible segmentally. The right common femoral vein is patent and compressible . Ordering Physician: Pilar Duncan Referring Physician: Pilar Duncan Performed By: Diamond Chan RVT
== END | disposition home or self-care (01) ==
LOC: CVS 12:36
PROVIDERS: PCP Family Medicine; Referring Provider Family Medicine; Visit Provider Family Medicine
DX: M79.662 Pain in left lower leg (principal)
CPT/HCPCS: 93971

== ENCOUNTER → 2024-11-04 | Outpatient (CLI) | payer SELFPAY ==
--- NOTE | 2024-11-04 06:04 | CT_ITS ---
PROCEDURE: SOFT TISSUE NECK WITH CONTRAST 11/04/2024 REASON FOR EXAM: DISORDER OF PARATHYROID GLAND, UNSPECIFIED TECHNIQUE: CT of the soft tissues of the neck from the orbits to the upper mediastinum with intravenous contrast. CONTRAST: Isovue 370 VOLUME: 72 mL One or more dose reduction techniques were used (e.g., Automated exposure control, adjustment of the mA and/or kV according to patient size, use of iterative reconstruction technique). RADIATION DOSE SUMMARY: CTDlvol: 17.41 mGy DLP: 508.92 mGycm COMPARISON: None FINDINGS: Airway: Midline and patent. Salivary glands: Unremarkable. Lymph nodes: No cervical lymphadenopathy. Thyroid: Unremarkable. Vasculature: Carotid arteries and internal jugular veins are unremarkable. Orbits: Unremarkable at visualized levels. Paranasal sinuses and mastoids: Grossly clear at visualized levels. Lung apices: Clear. Upper mediastinum: Visualized mediastinum is unremarkable. Bones: Mild degenerative changes. Other: CT/Soft Tissue Neck WITH Contrast IMPRESSION: No acute abnormality is seen. Reading Location: [id number]
== END | disposition home or self-care (01) ==
LOC: CT 06:03
PROVIDERS: PCP Family Medicine
DX: E21.5 Disorder of parathyroid gland, unspecified (principal)
CPT/HCPCS: 70491; Q9967

== ENCOUNTER 2024-11-05 06:57 | Outpatient (CLI) | payer SELFPAY ==
--- NOTE | 2024-11-05 06:58 | ECHOD_ITS ---
Reason For Study Reason For Study: PERSONAL HX OF OTHER DISEASES OF THE CIRCULATORY SYSTEM Procedure This was a 2D Doppler, Color Flow transthoracic echocardiogram. Exam performed in department. Left Ventricle Normal LV size. The estimated ejection fraction is 60 %. No evidence for diastolic dysfunction. No regional wall motion abnormalities noted. Right Ventricle Normal RV size. Normal systolic function. Atria The left and right atria are normal. Bubble contrast study negative for right to left interatrial shunt. Mitral Valve There is no mitral valve stenosis. No mitral valve insufficiency. Tricuspid Valve There is no tricuspid stenosis. Unable to estimate RV systolic pressure due to insufficient tricuspid regurgitant envelope. Trivial tricuspid valve insufficiency. Aortic Valve Trisinus/trileaflet aortic valve. There is no aortic stenosis. No aortic valve insufficiency. Pulmonic Valve There is no pulmonic valvular stenosis. Trivial pulmonic valve insufficiency. Great Vessels Normal sized aortic root. Pericardium/Pleural No pericardial effusion. MMode/2D Measurements & Calculations LVIDd: 4.8 cm IVSd: 1.1 cm Ao root diam: 3.3 cm LVIDs: 3.0 cm LVPWd: 0.83 cm RVDd: 3.1 cm FS: 37.3 % LAV(MOD-bp): 44.6 ml LVAd ap4: 22.3 cm2 LVAd ap2: 21.9 cm2 LAV(MOD-bp) Indexed: 25.4 ml/m2 LVLd ap4: 7.3 cm LVLd ap2: 7.2 cm LAV(MOD-sp2): 40.0 ml EDV(MOD-sp4): 57.4 ml EDV(MOD-sp2): 55.1 ml LAV(MOD-sp4): 45.2 ml EDV(sp4-el): 57.4 ml EDV(sp2-el): 56.4 ml LVAs ap4: 11.0 cm2 LVAs ap2: 10.7 cm2 LVLs ap4: 5.6 cm LVLs ap2: 5.2 cm ESV(MOD-sp4): 19.2 ml ESV(MOD-sp2): 18.6 ml ESV(sp4-el): 18.4 ml ESV(sp2-el): 18.7 ml EF(MOD-sp4): 66.5 % EF(MOD-sp2): 66.3 % EF(sp4-el): 67.9 % SV(MOD-sp4): 38.1 ml SV(MOD-sp2): 36.6 ml SV(sp4-el): 39.0 ml SI(MOD-sp4): 21.8 ml/m2 SI(MOD-sp2): 20.9 ml/m2 LA A4 area: 16.7 cm2 LA dimension(2D): 3.4 cm RA A4 area: 12.6 cm2 TAPSE: 1.8 cm Time Measurements MV dec time: 0.17 sec Doppler Measurements & Calculations MV E max hunter: 57.7 cm/sec Lat Peak E' Hunter: 12.8 cm/sec Med Peak E' Hunter: 10.1 cm/sec MV A max hunter: 60.2 cm/sec E/E' lat: 4.5 E/E' med: 5.7 MV E/A: 0.96 MV V2 max: 67.9 cm/sec MV P1/2t max hunter: 64.2 cm/sec Ao V2 max: 132.5 cm/sec MV max P.8 mmHg MV P1/2t: 38.6 msec Ao max P.0 mmHg MV V2 mean: 38.3 cm/sec Ao V2 mean: 91.2 cm/sec MV mean P.68 mmHg MV dec slope: 486.3 cm/sec2 Ao mean P.9 mmHg MV V2 VTI: 15.7 cm MVA(P1/2t): 5.7 cm2 Ao V2 VTI: 26.2 cm AV (velocity ratio): 0.72 LV V1 max: 94.8 cm/sec PA V2 max: 92.7 cm/sec TR max hunter: 264.2 cm/sec LV V1 max P.6 mmHg PA V2 mean: 66.2 cm/sec TR max P.9 mmHg LV V1 mean P.1 mmHg LV V1 mean: 69.2 cm/sec LV V1 VTI: 18.9 cm ECHO/Echo Complete Interpretation Summary The estimated ejection fraction is 60 %. No evidence for diastolic dysfunction. Ordering Physician: Pilar Duncan Referring Physician: Pilar Duncan Performed By: Anne Cherry, RDCS, RVT
--- NOTE | 2024-11-05 06:58 | CDU_ITS ---
Reason For Study Reason For Study: TIA Rt. Velocities/BP Lt. Velocities/BP Prox CCA 87.2/17.3 cm/sec. Prox CCA 101.4/23.4 cm/sec. Mid CCA 90.5/22.3 cm/sec. Mid CCA 103.5/28.6 cm/sec. Dist CCA 92.7/26.7 cm/sec. Dist CCA 75.3/27.4 cm/sec. Prox ICA 66.6/20.3 cm/sec. Prox ICA 64.5/18.4 cm/sec. Mid ICA 58.9/24.9 cm/sec. Mid ICA 68.3/29.6 cm/sec. Dist ICA 42.2/19.4 cm/sec. Dist ICA 57.0/26.4 cm/sec. Rt. ICA/CCA = 0.7. Lt. ICA/CCA = 0.7. Prox ECA 94.9/14.6 cm/sec. Prox ECA 81.4/10.2 cm/sec. Rt. Vert. 45.8/15.2 cm/sec. Lt. Vert. 43.0/13.3 cm/sec. Right Extracranial There is homogeneous, smooth atherosclerotic plaque noted in the right common carotid artery. There is homogeneous, smooth atherosclerotic plaque noted in the right internal carotid artery. There is intimal thickening but no significant atherosclerotic plaque noted in the right external carotid artery. Antegrade flow is noted in the right vertebral artery. Left Extracranial There is homogeneous, smooth atherosclerotic plaque noted in the left common carotid artery. There is homogeneous, smooth atherosclerotic plaque noted in the left internal carotid artery. There is intimal thickening but no significant atherosclerotic plaque noted in the left external carotid artery. Antegrade flow is noted in the left vertebral artery. Procedure Carotid Duplex [id number]. This is a Carotid Duplex examination using B-mode, color flow and specral Doppler. Exam performed in department. VL/Carotid Duplex Ultrasound Interpretation Summary Mild (<50%) stenosis right extracranial internal carotid. Mild (<50%) stenosis left extracranial internal carotid. Patent and antegrade vertebrals bilaterally. Ordering Physician: Pilar Duncan Referring Physician: Pilar Duncan Performed By: Cassie Hernández, JOSHUAT
== END 2024-11-05 23:59 | disposition home or self-care (01) ==
LOC: CVS 06:57
PROVIDERS: PCP Family Medicine; Referring Provider Family Medicine; Visit Provider Family Medicine
DX: Z86.79 Personal history of other diseases of the circulatory system (principal); I65.23 Occlusion and stenosis of bilateral carotid arteries
CPT/HCPCS: 93306; 93880; A4216